=== PATIENT | female | born 1955 | race Caucasian/White ===

== ENCOUNTER → 2017-09-28 | Outpatient (CLI) | payer BC ==
[2017-09-28 15:31] LABS: Basophils % (A) 0 %; Eosinophils # (A) 0.1 k/uL (0-0.7); Eosinophils % (A) 2 %; HCT 35.2 % (34.0-46.0); Lymphocytes # (A) 1.9 k/uL (1.0-4.8); Lymphocytes % (A) 28 %; MCH 34.9 pg (25.0-35.0); MCHC 34.2 g/dL (31.0-37.0); MCV 102.1 fL (80.0-100.0); Macrocytosis Slight; Mean Platelet Volume 8.6; Monocytes # (A) 0.6 k/uL (0-1.0); Monocytes % (A) 9 %; Neutrophils # (A) 4.2 k/uL (1.3-7.7); Neutrophils % (A) 60 %; Platelet Count 126 k/uL (150-450); RBC 3.44 m/uL (3.80-5.40); RDW 14.6 % (11.5-15.5)
[2017-09-28 15:43] LABS: INR 1.1 (<1.2); Prothrombin Time 10.9 sec (9.0-12.0)
[2017-09-28 15:50] LABS: Anion Gap 6 mmol/L; Blood Urea Nitrogen 4 mg/dL (7-17); Carbon Dioxide 28 mmol/L (22-30); Chloride 107 mmol/L (98-107); Glucose 91 mg/dL (74-99); Potassium 4.4 mmol/L (3.5-5.1); Sodium 141 mmol/L (137-145)
== END | disposition home or self-care (01) ==
LOC: LABWHC1 14:55
PROVIDERS: ATTEND Anesthesiology
DX: Z01.812 Encounter for preprocedural laboratory examination (principal); Z79.01 Long term (current) use of anticoagulants
CPT/HCPCS: 36415; 80051; 82565; 82947; 84520; 85025; 85610; 85730

== ENCOUNTER 2017-10-01 10:47 | Inpatient (IN) | payer BC ==
[2017-09-25 16:26] VITALS: BMI 23.1
--- NOTE | 2017-09-30 09:18 | HP ---
HISTORY AND PHYSICAL DATE OF SERVICE: 10/01/2017. HISTORY: Rosa Maria Morse is a 62-year-old patient seen with progressive symptomatic left hip osteoarthritis. We discussed treatment options. She elected to proceed with left total hip arthroplasty. Consent regarding the procedure was obtained. Medical clearance was provided by Dr. Bernard. PAST MEDICAL HISTORY: Hypertension. PAST SURGICAL HISTORY: Noncontributory. MEDICATIONS: Gabapentin, metoprolol. ALLERGIES: CODEINE. SOCIAL HISTORY: Patient denies current tobacco use. PHYSICAL EXAMINATION: On evaluation of the left hip, there is diffuse tenderness about the hip girdle. Very limited range of motion with severe pain. Positive hip impingement sign. Straight leg raise negative. The left lower extremity is approximately 1 cm shorter than the right. Her distal neurovascular exam is intact. RADIOGRAPHS: Radiographs of the left hip reveal severe osteoarthritis. IMPRESSION: 1. Left hip osteoarthritis. 2. Hypertension. PLAN: Direct anterior left total hip arthroplasty. MMODL / IJN: [id number] /
[~2017-10-01 10:47] MED LIST: ACETAMINOPHEN TAB 500 MG TAB PO ONE; LIDOCAINE 1% 20 ML VIAL (10MG/ML) FOR IV START INTRADERMA PRN; MELOXICAM 7.5 MG TAB PO ONE; ONDANSETRON 4 MG/2 ML VIAL IVP ONE; TRANEXAMIC ACID 1,000 MG in SODIUM CHLORIDE 0.9% 50 ML IVPB ONE; VANCOMYCIN 1,000 MG in SODIUM CHLORIDE 0.9% 250 ML IVPB ONE
[2017-10-01] MEDS: LACTATED RINGERS 1,000 ML IV SCH ×2 (12:55→21:25)
[2017-10-01] MEDS ORDERED: ROPIVACAINE 246.25 MG, EPINEPHrine 0.5 MG, KETOROLAC 30 MG, cloNIDine HCL/PF 80 MCG, WA... MISCELLANE ONE ×5 (15:25)
[2017-10-01] MEDS ORDERED: ONDANSETRON 4 MG/2 ML VIAL IVP ONE (15:45)
[2017-10-01] MEDS ORDERED: ePHEDrine SULFATE/0.9% NACL/PF 50 MG/5 ML SYRINGE IV ONE (15:57)
[2017-10-01] MEDS ORDERED: SODIUM CHLORIDE 0.9% 100 ML BAG ONE (15:57)
[2017-10-01] MEDS ORDERED: TRANEXAMIC ACID 1,000 MG/10 ML VIAL ONE (15:57)
[2017-10-01] MEDS ORDERED: fentaNYL (PF) 50 MCG/ML 2 ML AMP ONE ×2 (15:57)
[2017-10-01] MEDS ORDERED: PROPOFOL 10 MG/ML 20 ML VIAL IV ONE (15:57)
[2017-10-01] MEDS ORDERED: ceFAZolin 3,000 MG in SODIUM CHLORIDE 0.9% IRRIGATIO 3,000 ML IRRIGATION ONE (16:33)
[2017-10-01] MEDS ORDERED: hydrOXYzine PAMOATE 25 MG CAP PO PRN (18:07)
[2017-10-01] MEDS ORDERED: HYDROcodone/APAP 7.5-325MG 1 EACH TAB PO PRN (18:07)
[2017-10-01] MEDS ORDERED: NALOXONE 0.4 MG/ML 1 ML VIAL IV PRN (18:07)
[2017-10-01] MEDS ORDERED: ONDANSETRON 4 MG/2 ML VIAL IVP PRN (18:07)
[2017-10-01] MEDS ORDERED: HYDROmorphone 1 MG/ML 1 ML SYRINGE IVP PRN (18:07)
[2017-10-01] MEDS ORDERED: HYDROmorphone 0.5 MG/0.5 ML SYRINGE IVP PRN ×2 (18:07)
--- NOTE | 2017-10-01 18:07 | P.OP ---
Date of Procedure: 10/01/17 Preoperative Diagnosis: Left hip osteoarthritis Postoperative Diagnosis: Left hip osteoarthritis Procedure(s) Performed: Direct anterior left total hip arthroplasty Implants: 1. Depuy Corail KA size 12 standard collar press-fit femoral stem 2. Depuy pinnacle 52 mm press-fit acetabular shell 3. Depuy pinnacle polyethylene acetabular liner neutral 36 mm ID 52 mm OD 4. Depuy metal femoral head 36 mm -2 Anesthesia: local, spinal Surgeon: Konstantin Trivedi Engineer Technician #1: Louis Whatley Estimated Blood Loss (ml): 300 Pathology: other (Femoral head) Condition: stable Disposition: PACU Indications for Procedure: 62-year-old patient seen with symptomatic left hip osteoarthritis. After having treatment options discussed, she elected to proceed with total hip arthroplasty. Operative Findings: see description of procedure Description of Procedure: The patient was taken to the operative suite. Patient underwent a spinal anesthetic by the department of anesthesia. Patient was then transferred to the Veteran table. Patient was given preoperative IV antibiotics and TXA. Both lower extremities were placed in standard leg spars. The hip was then prepped and draped in the normal sterile orthopedic fashion. A standard anterior incision was made beginning 3 cm lateral and 1 cm distal to the ASIS extending 10 cm. Dissection was then carried down through the subcutaneous soft tissues down to the fascia overlying the tensor fascia sharon. An incision was now made through the fascia. Careful dissection was taken down exposing the tensor fascia sharon muscle. A Cobra retractor was now placed along the medial femoral neck and a second one along the lateral femoral neck. The venous circumflex vessels were now identified, cauterized and clipped. We identified the anterior hip capsule. An incision was made through the hip capsule along the lateral border. Tag sutures were then placed along the anterior capsule and lateral capsule. We then performed a capsulotomy. Retractors were now placed around the femoral neck itself. A Cobra retractor was now placed along the anterior acetabulum. Good exposure was now noted of the femoral head/neck complex. Residual labrum was debrided out. We placed the extremity into 3 turns of fine traction. We were then able to introduce a skid in between the femoral head and acetabulum. A placed a awl into the femoral head. We took 2 turns of traction off the extremity. Rotation was now released. The femoral head was then dislocated without difficulty. Additional releasing was performed of the capsule. The head was then reduced. All traction was released. A femoral neck cut was now made with a sagittal saw. It was completed with an osteotome at the lateral neck area. The femoral head was now removed without difficulty. The extremity was now rotated to 45 of external rotation. It was locked in position. Residual labrum was now debrided out. Serial reaming was performed of the acetabulum. Once we reached the appropriate size and a trial was position and fit nicely. The appropriate size was now chosen opened and made available. The wound was irrigated with pulse lavage mechanical irrigation. The acetabular shell was introduced into the acetabulum without difficulty. The C-arm/fluoroscopy was now brought into the operative field. We made sure we had a true AP pelvic view. We now under direct C-arm/fluoroscopy introduced into the acetabular component with appropriate version and inclination. It was well seated and stable. The C-arm was pulled back. An appropriate liner was introduced and clicked into position. It was felt to be stable. At this point retractors were removed. The extremity was now placed into 120 external rotation with no traction. The leg was now dropped to the ground and adducted. Appropriate retractors were now positioned along the proximal femur. We also placed our femoral look into position. Additional capsular releasing was performed to gain access to the proximal femur. We now used a box osteotome. A canal finder was now utilized. Serial broaching was now performed. We noted the canal was very tight distally at this point canal reamers were utilized to open up the canal distally. I was not able to introduce the appropriate size broach and seated it nicely. It had good rotational stability. Appropriate calcar planing was performed. A trial head/neck was placed into position. The hip was now reduced. The C-arm/fluoroscopy was brought back into the operative field. A spot film was obtained of the nonoperative hip. A spot film was obtained of the trial components. Overlays were performed, we noted good overall alignment and positioning for determining leg length. The C-arm/fluoroscopy was pulled back. Retractors were repositioned and the hip was dislocated. The leg was again taken down to the ground and adducted. Appropriate retractors were repositioned as well as the femoral hook. All trial components were removed. The femoral implant was opened along with the femoral head. The wound was irrigated with pulse lavage mechanical irrigation. The deep soft tissues were infiltrated with local analgesic. The femoral implant was introduced with good purchase and fixation noted. The femoral head was introduced with good positioning and fixation noted. This was confirmed under fluoroscopy. Spot films were obtained to document this. Retractors were now removed. The hip was now reduced. There appeared be good positioning of the hip. Bipolar cautery had been utilized intermittently through the procedure for hemostasis. The wound was irrigated copiously with pulse lavage mechanical irrigation. The deep and superficial soft tissues were infiltrated with local analgesic. The fascia was repaired with Vicryl suture. The subcutaneous soft tissues were repaired in layers with Vicryl suture. The skin was approximated with pernio/ Dermabond. Sterile dressings were applied. Patient was then awakened, transferred to a bed and taken to recovery in stable condition. Toi BOGGS assisted with the procedure.
--- NOTE | 2017-10-01 20:29 | FL ---
EXAMINATION TYPE: FL guidance operating room DATE OF EXAM: 10/01/2017 FLUOROSCOPY Fluoroscopy time of 12 seconds was used during anterior left hip replacement. 1 image/s document/s t he procedure.
[2017-10-01] MEDS: traMADol 50 MG TAB PO SCH (21:25)
[2017-10-01] MEDS: SENNOSIDES-DOCUSATE SODIUM 1 EACH TAB PO SCH (21:25)
[2017-10-01] MEDS: HYDROcodone/APAP 7.5-325MG 1 EACH TAB PO PRN (22:33)
[2017-10-01] MEDS: ceFAZolin IN SWFI 2 GM/20 ML SYRINGE IVP SCH (23:41)
[2017-10-02] MEDS: LACTATED RINGERS 1,000 ML IV SCH ×3 (05:58→08:20)
[2017-10-02 07:38] LABS: Basophils % (A) 0 %; Eosinophils # (A) 0.1 k/uL (0-0.7); Eosinophils % (A) 1 %; HCT 27.1 % (34.0-46.0); Lymphocytes # (A) 1.2 k/uL (1.0-4.8); Lymphocytes % (A) 15 %; MCH 35.6 pg (25.0-35.0); MCHC 33.8 g/dL (31.0-37.0); MCV 105.4 fL (80.0-100.0); Macrocytosis Moderate; Mean Platelet Volume 7.9; Monocytes # (A) 0.5 k/uL (0-1.0); Monocytes % (A) 6 %; Neutrophils % (A) 76 %; Platelet Count 117 k/uL (150-450); RBC 2.57 m/uL (3.80-5.40); RDW 15.2 % (11.5-15.5); WBC 7.9 k/uL (3.8-10.6)
[2017-10-02 07:48] LABS: HGB 9.1 gm/dL (11.4-16.0)
[2017-10-02] MEDS: HYDROcodone/APAP 7.5-325MG 1 EACH TAB PO PRN (08:15)
[2017-10-02] MEDS: ceFAZolin IN SWFI 2 GM/20 ML SYRINGE IVP SCH (08:16)
[2017-10-02] MEDS: ENOXAPARIN 40 MG/0.4 ML SYRINGE SQ SCH (08:16)
[2017-10-02] MEDS: FAMOTIDINE 20 MG TAB PO SCH (08:16)
[2017-10-02] MEDS ORDERED: MELOXICAM 7.5 MG TAB PO SCH (09:00)
[2017-10-02] MEDS: traMADol 50 MG TAB PO SCH ×4 (10:02→21:46)
--- NOTE | 2017-10-02 13:31 | P.PN ---
Subjective Progress Note Date: 10/02/17 Principal diagnosis: Status post left total hip arthroplasty Patient seen today resting in her hospital bed, her dressings present at bedside. She does admit to some nausea earlier this morning, this has improved. She's ambulated with therapy. She denies any headaches, lightheadedness, chest pain or shortness of breath. Objective - Vital Signs Vital signs: Vital Signs Temp 98.2 F 10/02/17 07:00 Pulse 90 10/02/17 07:00 Resp 14 10/02/17 07:00 BP 117/75 10/02/17 07:00 Pulse Ox 97 10/02/17 07:00 Intake & Output 10/01/17 10/02/17 10/02/17 18:59 06:59 18:59 Intake Total 1051 640 Output Total 300 Balance 751 640 Weight 61.235 kg Intake: IV 1051 Intake, IV Titration 640 Amount Lactated Ringers 1,000 ml 640 @ 80 mls/hr IV .[id number] [facility] Rx#:[id number] Output: Estimated Blood Loss 300 Other: Voiding Method Toilet # Voids 2 - Exam Left lower extremity: Incision is clean, dry, and intact. The prineo tape is in good condition. There is minimal soft tissue swelling and ecchymosis surrounding the medial and lateral aspects of the incision. Calf is soft, no tenderness with palpation. Plantar flexion, dorsiflexion, EHL, FHL are intact. Sensory exam to light touch throughout the extremity is intact, dorsal pedis pulses 2+. - Labs CBC & Chem 7: 10/02/17 06:38 Labs: Abnormal Lab Results - Last 24 Hours (Table) 10/02/17 Range/Units 06:38 RBC 2.57 L (3.80-5.40) m/uL Hgb 9.1 L D (11.4-16.0) gm/dL Hct 27.1 L (34.0-46.0) % MCV 105.4 H (80.0-100.0) fL MCH 35.6 H (25.0-35.0) pg Plt Count 117 L (150-450) k/uL Assessment and Plan Plan: Assessment: Postoperative day 1 status post left total hip arthroplasty Plan: Pain control, continue use of oral medication GI and DVT prophylaxis, continue Lovenox Encourage incentive spirometer Wound care instructions discussed Medical management Discharge planning: Patient likely will be discharged home tomorrow Time with Patient: Less than 30
--- NOTE | 2017-10-02 15:31 | P.CONS ---
History of Present Illness - History of Present Illness First time taking care of the patient is today 10/02/2017 This is a pleasant 62 years old female with past medical history of hypertension , osteoarthritis, neuropathy of upper or lower extremity, presents for left total hip arthroplasty. Today 10/02/2017 is postop day #1 patient got 1 dose of vancomycin already yesterday Review of Systems CONSTITUTIONAL: No fever, no malaise, no fatigue. HEENT: No recent visual problems or hearing problems. Denied any sore throat. CARDIOVASCULAR: No orthopnea, PND, no palpitations, no syncope. PULMONARY: No shortness of breath, no cough, no hemoptysis. GASTROINTESTINAL: No diarrhea, no nausea, no vomiting, no abdominal pain. Normoactive bowel sounds. NEUROLOGICAL: No headaches, no weakness, no numbness. HEMATOLOGICAL: Denies any bleeding or petechiae. GENITOURINARY: Denies any burning micturition, frequency, or urgency. MUSCULOSKELETAL/RHEUMATOLOGICAL: Denies any joint pain, swelling, or any muscle pain. ENDOCRINE: Denies any polyuria or polydipsia. Past Medical History Past Medical History: Hypertension, Osteoarthritis (OA) Additional Past Medical History / Comment(s): Neuropathy upper and lower extremities, more so in the lower. History of Any Multi-Drug Resistant Organisms: None Reported Past Surgical History: Breast Surgery, Section, Cholecystectomy Additional Past Surgical History / Comment(s): 3 ceserean Sections, BREAST REDUCTION. Past Anesthesia/Blood Transfusion Reactions: No Reported Reaction Past Psychological History: Anxiety Smoking Status: Never smoker Past Alcohol Use History: None Reported Additional Past Alcohol Use History / Comment(s): Former alcoholic, quit 2 yrs ago. Past Drug Use History: None Reported - Past Family History Mother Family Medical History: Cancer Additional Family Medical History / Comment(s): COLON AND UTERINE CANCER, and thyroid Cancer Sister(s) Family Medical History: Cancer Additional Family Medical History / Comment(s): BREAST CANCER Medications and Allergies Home Medications Medication Instructions Recorded Confirmed Type ALPRAZolam [Xanax] 0.25 - 0.5 mg PO BID PRN 09/16/15 10/01/17 History Cholecalciferol [Vitamin D3] 2,000 unit PO DAILY 09/16/15 10/01/17 History Escitalopram [Lexapro] 10 mg PO DAILY PRN 09/25/17 10/01/17 History Metoprolol Succinate [Toprol XL] 25 mg PO BID 09/25/17 10/01/17 History Thiamine [Vitamin B-1] 100 mg PO TID 09/25/17 10/01/17 History Allergies Allergy/AdvReac Type Severity Reaction Status Date / Time Sulfa (Sulfonamide Allergy Nausea & Verified 10/01/17 18:19 Antibiotics) Vomiting codeine AdvReac Nausea & Verified 10/01/17 18:19 Vomiting Physical Exam Vitals: Vital Signs Temp Pulse Resp BP Pulse Ox 10/02/17 14:52 98 F 103 H 16 92/59 97 10/02/17 07:00 98.2 F 90 14 117/75 97 10/02/17 00:40 97.8 F 83 15 94/65 95 10/01/17 21:40 72 96/63 10/01/17 21:25 77 102/66 10/01/17 21:10 70 96/63 10/01/17 20:55 70 101/68 10/01/17 20:40 72 94/62 10/01/17 20:25 68 93/56 10/01/17 20:10 67 94/60 10/01/17 19:55 67 103/66 10/01/17 19:42 97.9 F 70 16 91/62 96 10/01/17 19:15 67 12 106/71 100 10/01/17 19:00 66 16 102/66 99 10/01/17 18:45 71 16 102/66 100 10/01/17 18:30 70 14 102/57 99 10/01/17 18:24 97.6 F 69 18 138/63 99 Intake and Output 10/02/17 10/02/17 10/02/17 06:59 14:59 22:59 Intake Total 640 400 Balance 640 400 Intake: Intake, IV Titration 640 Amount Lactated Ringers 1,000 ml 640 @ 80 mls/hr IV .[id number] [facility] Rx#:[id number] Oral 400 Other: Voiding Method Toilet # Voids 2 2 GENERAL: The patient is alert and oriented x3, not in any acute distress. Well developed, well nourished. HEENT: Pupils are round and equally reacting to light. EOMI. No scleral icterus. No conjunctival pallor. Normocephalic, atraumatic. No pharyngeal erythema. No thyromegaly. CARDIOVASCULAR: S1 and S2 present. No murmurs, rubs, or gallops. PULMONARY: Chest is clear to auscultation, no wheezing or crackles. ABDOMEN: Soft, nontender, nondistended, normoactive bowel sounds. No palpable organomegaly. MUSCULOSKELETAL: No joint swelling or deformity. EXTREMITIES: No cyanosis, clubbing, or pedal edema. -Left hip, dressing is in a Place. Deferred to the primary orthopedic team NEUROLOGICAL: Gross neurological examination did not reveal any focal deficits. SKIN: No rashes. Results CBC & Chem 7: 10/02/17 06:38 Labs: Abnormal Lab Results - Last 24 Hours (Table) 10/02/17 Range/Units 06:38 RBC 2.57 L (3.80-5.40) m/uL Hgb 9.1 L D (11.4-16.0) gm/dL Hct 27.1 L (34.0-46.0) % MCV 105.4 H (80.0-100.0) fL MCH 35.6 H (25.0-35.0) pg Plt Count 117 L (150-450) k/uL Assessment and Plan Assessment: Chronic osteoarthritis Status post left total hip arthroplasty on 10/01/2017 Hypertension Plan: Continue with the same and treatment. Continue with the traumatic treatment. Patient on metoprolol for high blood pressure. Her blood pressure is 92/59 and we will hold blood pressure medication in view of postoperative hypotension, metoprolol is already on hold, continue with GI and DVT prophylaxis as per primary team. Pain management and post operative wound care as per primary team. We recommend to avoid NSAIDs
[2017-10-02] MEDS ORDERED: SODIUM CHLORIDE 0.9% 500 ML IV ONE (15:32)
[2017-10-02] MEDS ORDERED: SODIUM CHLORIDE 0.9% 1,000 ML IV ONE (20:35)
[2017-10-02] MEDS: SENNOSIDES-DOCUSATE SODIUM 1 EACH TAB PO SCH (21:48)
[2017-10-02] MEDS: METOPROLOL SUCCINATE (ER) 25 MG TAB.ER.24H PO SCH (21:49)
[2017-10-03] MEDS: LACTATED RINGERS 1,000 ML IV SCH ×2 (04:28→10:47)
[2017-10-03] MEDS: ENOXAPARIN 40 MG/0.4 ML SYRINGE SQ SCH (09:01)
[2017-10-03] MEDS: METOPROLOL SUCCINATE (ER) 25 MG TAB.ER.24H PO SCH (09:01)
[2017-10-03] MEDS: traMADol 50 MG TAB PO SCH ×2 (09:02→12:34)
[2017-10-03] MEDS: FAMOTIDINE 20 MG TAB PO SCH (09:02)
--- NOTE | 2017-10-03 09:05 | P.PN ---
Subjective Progress Note Date: 10/03/17 Principal diagnosis: Status post left total hip arthroplasty Patient seen today resting in her hospital bed, her dressings present at bedside. She's ambulated with therapy. She denies any headaches, lightheadedness, chest pain or shortness of breath. Objective - Vital Signs Vital signs: Vital Signs Temp 98.9 F 10/02/17 19:18 Pulse 112 H 10/03/17 00:26 Resp 16 10/02/17 19:18 BP 118/81 10/02/17 21:50 Pulse Ox 96 10/02/17 19:18 Intake & Output 10/02/17 10/03/17 10/03/17 18:59 06:59 18:59 Intake Total 400 640 Balance 400 640 Intake: Intake, IV Titration 640 Amount Lactated Ringers 1,000 ml 640 @ 80 mls/hr IV .[id number] [facility] Rx#:[id number] Oral 400 Other: Voiding Method Toilet # Voids 2 1 - Exam Left lower extremity: Incision is clean, dry, and intact. The prineo tape is in good condition. There is minimal soft tissue swelling and ecchymosis surrounding the medial and lateral aspects of the incision. Calf is soft, no tenderness with palpation. Plantar flexion, dorsiflexion, EHL, FHL are intact. Sensory exam to light touch throughout the extremity is intact, dorsal pedis pulses 2+. - Labs CBC & Chem 7: 10/02/17 06:38 Assessment and Plan Plan: Assessment: Postoperative day 2 status post left total hip arthroplasty Plan: Pain control, continue use of oral medication GI and DVT prophylaxis, discharged on aspirin 325 mg twice a day Encourage incentive spirometer Wound care instructions discussed Medical management Discharge planning: Discharged home today Time with Patient: Less than 30
--- NOTE | 2017-10-03 09:07 | P.DS ---
Providers Date of admission: 10/01/17 10:47 Expected date of discharge: 10/03/17 Attending physician: Konstantin Trivedi Primary care physician: Jarvis Bernard Hospital Course: Date of admission: 10/01/2017 Date of discharge: 10/04/2017 Admission diagnosis: Status post left total hip arthroplasty Discharge diagnosis: Same Attending physician: Dr. Trivedi Surgical procedures: Left total hip arthroplasty Brief history: Patient is a 62-year-old female with a history of with progressive primary left hip osteoarthritis. At this point patient has failed conservative treatment measures and has opted to proceed with a elective left total hip arthroplasty. Hospital course: Details of patient's surgery can be found in operative report. Patient tolerated the procedure well and was subsequently transported to orthopedic floor. Patient's orthopeidc and medical care was provided daily. Patient had daily laboratory tests performed for evaluation of overall blood counts. Patient had daily physical therapy to include strengthening range of motion as well as education with walker ambulation. Patient was treated with Lovenox for their postoperative DVT prophylaxis during their inpatient stay. Patient was noted to have a relatively uneventful postoperative course. Patient reported satisfactory pain control with oral pain medications by postoperative day 0. Patient showed satisfactory progress with physical therapy. Patient moved steadily through the program and had no difficulty meeting the goals by postoperative day 2. Given patient's otherwise satisfactory course and having met physical therapy goals, plan is to discharge patient home on postoperative day 2. Discharge condition/disposition: Patient will be discharged home in stable condition. Discharge medications: Instructions are given on resumption of patient's normal daily medications per primary care recommendation, in addition patient will be prescribed [place] 7.5 mg/325 mg, tramadol 50 mg, Colace 100 mg, aspirin 325 mg. Discharge instructions: 1. Wound care and infection precautions, keep incision dry and covered while showering, no lotions, creams, moisturizers. No soaking, tubs, pools, hottubs. Do not scrub over the incision. 2. Weight-bear as tolerated with walker / cane until follow-up. 3. Ice and elevate when necessary. Do not exceed 20 minutes per hour with ice pack. 4. Utilize compression sleeve until seen at first follow up appointment. 5. Visiting nursing care. 6. Home physical therapy. 7. Pain meds and anticoagulants per prescription. 8. Pain medication has potential to cause constipation. Increase oral fluid and fiber intake. Contact primary care provider if you have not had a bowel movement within 48 hours after discharge 9. No anti-inflammatory medication until discussed at first post operative visit, this including Motrin, Aleve, Mobic, Diclofenac. 10. Follow up in office at 2 weeks postop with Toi Whatley PA-C 11. Follow up with your primary care doctor 7-10 days after discharge. 12. Contact [facility] with any questions, . Procedures: Left total hip arthroplasty Patient Condition at Discharge: Good Plan - Discharge Summary Discharge Rx Participant: Yes New Discharge Prescriptions: New Aspirin 325 mg PO BID #60 tab Docusate [Colace] 100 mg PO DAILY #30 capsule HYDROcodone/APAP 7.5-325MG [[place] 7.5] 1 - 2 each PO Q6HR PRN #56 tab PRN Reason: Pain traMADol HCl [Ultram] 50 mg PO Q6H PRN #28 tab PRN Reason: Pain No Action ALPRAZolam [Xanax] 0.25 - 0.5 mg PO BID PRN PRN Reason: Anxiety Cholecalciferol [Vitamin D3] 2,000 unit PO DAILY Thiamine [Vitamin B-1] 100 mg PO TID Escitalopram [Lexapro] 10 mg PO DAILY PRN PRN Reason: Anxiety Metoprolol Succinate [Toprol XL] 25 mg PO BID Discharge Medication List ALPRAZolam [Xanax] 0.25 - 0.5 mg PO BID PRN 09/16/15 [History] Cholecalciferol [Vitamin D3] 2,000 unit PO DAILY 09/16/15 [History] Escitalopram [Lexapro] 10 mg PO DAILY PRN 09/25/17 [History] Metoprolol Succinate [Toprol XL] 25 mg PO BID 09/25/17 [History] Thiamine [Vitamin B-1] 100 mg PO TID 09/25/17 [History] Aspirin 325 mg PO BID #60 tab 10/03/17 [Rx] Docusate [Colace] 100 mg PO DAILY #30 capsule 10/03/17 [Rx] HYDROcodone/APAP 7.5-325MG [[place] 7.5] 1 - 2 each PO Q6HR PRN #56 tab 10/03/17 [ Rx] traMADol HCl [Ultram] 50 mg PO Q6H PRN #28 tab 10/03/17 [Rx] Follow up Appointment(s)/Referral(s): Jarvis Bernard MD [Primary Care Provider] - 10/10/17 10:15 am Louis Whatley PAC [PHYSICIAN SHIRRING MACHINE OPERATOR] - 10/17/17 2:00 pm Patient Instructions/Handouts: Anterior Hip Replacement (DC) Activity/Diet/Wound Care/Special Instructions: Orthopedic Discharge Instructions: 1. Wound care and infection precautions, keep incision dry and covered while showering, no lotions, creams, moisturizers. No soaking, pools, hot tubs. Do not scrub over incision. 2. Weight-bear as tolerated with walker / cane until follow-up. 3. Ice and elevate when necessary. Do not exceed 20 minutes per hour with ice pack. 4. Utilize compression sleeve until seen at first follow up appointment. 5. Visiting nursing care. 6. Home physical therapy. 7. Pain meds and anticoagulants per prescription. 8. Pain medication has potential to cause constipation. Increase oral fluid and fiber intake. Contact primary care provider if you have not had a bowel movement within 48 hours after discharge. 9. No anti-inflammatory medication until discussed at first post operative visit, this including Motrin, Aleve, Mobic, Diclofenac. 10. Follow up in office at 2 weeks postop with Toi Whatley PA-C 11. Follow up with your primary care doctor 7-10 days after discharge. 12. Contact [facility] with any questions, . Discharge Disposition: HOME WITH HOME HEALTH SERVICES
[2017-10-03 10:02] VITALS: BP 104/67; PULSE 96; RESP 14; TEMP 99.6
--- NOTE | 2017-10-03 14:38 | P.PN ---
Subjective This is a pleasant 62 years old female with past medical history of hypertension , osteoarthritis, neuropathy of upper or lower extremity, presents for left total hip arthroplasty. Today 10/02/2017 is postop day #1 patient got 1 dose of vancomycin already yesterday Subjective Today patient feels better, no new complaints. No chest pain or dyspnea. Dizziness. No change in urine or bowel habits. No fever. She has minimal pain of the surgery site. And the wound looks closed with no surrounding signs symptoms of inflammation. Patient on metoprolol for hypertension which was restarted, SBP is running between 90s and 110s (which is patient's baseline as she was telling me for a long time ago). Patient is going to be discharged today by the orthopedic team Objective - Vital Signs Vital signs: Vital Signs Temp 99.6 F 10/03/17 07:00 Pulse 96 10/03/17 07:15 Resp 14 10/03/17 07:00 BP 104/67 10/03/17 07:00 Pulse Ox 95 10/03/17 07:00 Intake & Output 10/02/17 10/03/17 10/03/17 18:59 06:59 18:59 Intake Total 400 640 Balance 400 640 Intake: Intake, IV Titration 640 Amount Lactated Ringers 1,000 ml 640 @ 80 mls/hr IV .[id number] [facility] Rx#:[id number] Oral 400 Other: Voiding Method Toilet # Voids 2 1 - Exam GENERAL: The patient is alert and oriented x3, not in any acute distress. Well developed, well nourished. HEENT: Pupils are round and equally reacting to light. EOMI. No scleral icterus. No conjunctival pallor. Normocephalic, atraumatic. No pharyngeal erythema. No thyromegaly. CARDIOVASCULAR: S1 and S2 present. No murmurs, rubs, or gallops. PULMONARY: Chest is clear to auscultation, no wheezing or crackles. ABDOMEN: Soft, nontender, nondistended, normoactive bowel sounds. No palpable organomegaly. MUSCULOSKELETAL: No joint swelling or deformity. EXTREMITIES: No cyanosis, clubbing, or pedal edema. -Left hip, dressing is in a Place, wound ages looks closed, healing, with no signs symptoms of inflammation in the surrounding area. No discharge. Rest of exam Deferred to the primary orthopedic team NEUROLOGICAL: Gross neurological examination did not reveal any focal deficits. - Labs CBC & Chem 7: 10/02/17 06:38 Assessment and Plan Assessment: Chronic osteoarthritis Status post left total hip arthroplasty on 10/01/2017 Hypertension Plan: Continue with the same and treatment. Continue with the traumatic treatment. Patient on metoprolol for high blood pressure. Her metoprolol has already been started. Her blood pressure is a stable and at baseline as per patient, continue with GI prophylaxis. DVT prophylaxis as per primary team. Pain management and post operative wound care as per primary team. We recommend to avoid NSAIDs. Patient was instructed to follow up with PCP in one week. Patient states she is going back today and going to call her primary doctor for appointment in 1 week. From a medical perspective patient is a stable for discharge however she needs follow-up as an outpatient. We asked Patient and she doesn't need any more prescription
[2017-10-03] MEDS: HYDROcodone/APAP 7.5-325MG 1 EACH TAB PO PRN (14:43)
== END 2017-10-03 15:14 | disposition home health service (06) | DRG 470 ==
LOC: 2ORMAIN 10:47 → 3SUR 18:06
PROVIDERS: ADMIT Orthopaedic Surgery; ATTEND Orthopaedic Surgery
PROC: 0SRB02A Replacement of Left Hip Joint with Metal on Polyethylene Synthetic Substitute, Uncemented, Open Approach (ICD-10-PCS; principal; 2017-10-01 15:45)
DX: M16.12 Unilateral primary osteoarthritis, left hip (principal); I10 Essential (primary) hypertension; Z80.3 Family history of malignant neoplasm of breast; Z80.49 Family history of malignant neoplasm of other genital organs; Z80.8 Family history of malignant neoplasm of other organs or systems; Z79.899 Other long term (current) drug therapy; Z88.5 Allergy status to narcotic agent; G62.9 Polyneuropathy, unspecified; Z90.49 Acquired absence of other specified parts of digestive tract; Z88.2 Allergy status to sulfonamides
CPT/HCPCS: 85025; 86850; 86900; 86901; 88300

== ENCOUNTER 2022-01-13 16:07 | Inpatient (IN) | payer BC, MEDICARE ==
--- NOTE | 2022-01-13 17:18 | XR ---
EXAMINATION TYPE: XR Hip LT and AP Pelvis DATE OF EXAM: 01/13/2022 COMPARISON: NONE HISTORY: Pain TECHNIQUE: 3 views FINDINGS: The pelvic ring is intact. There is left hip prosthesis that appears in good position. Prox imal right femur and hip joint appear intact. There is probably a nondisplaced fracture of the greate r trochanter of the left femur. IMPRESSION: Fracture of the greater trochanter of the left femur maurilio cent to the prosthesis. The age of this fracture is not clear. Recommend comparison with an old exam.
--- NOTE | 2022-01-13 17:19 | XR ---
EXAMINATION TYPE: XR femur LT DATE OF EXAM: 01/13/2022 COMPARISON: NONE HISTORY: Pain TECHNIQUE: 4 view FINDINGS: There is nondisplaced fracture of the greater trochanter of the femur adjacent to the prost hesis. There is left hip prosthesis in good position. The knee joint appears intact. No evidence of k nee joint fracture. IMPRESSION: Nondisplaced fracture greater trochanter of the femur.
--- NOTE | 2022-01-13 17:21 | CT ---
EXAMINATION TYPE: CT brain rosibel wo con DATE OF EXAM: 01/13/2022 COMPARISON: CT brain 03/02/2014 HISTORY: fall CT DLP: 1255.6 mGycm Automated exposure control for dose reduction was used. Images obtained of the brain and cervical spine with no contrast. There is cerebral cortical atrophy. There is no mass effect or midline shift. No sign of intracranial hemorrhage. Calvarium is intact. There is normal aeration of the mastoid sinuses. Skull base is inta ct. The cervical vertebra have normal alignment. Posterior elements are intact. There is degenerative dis c space narrowing in the mid and lower cervical spine with spurring of the endplates. Posterior eleme nts are intact. There is mild cervical hypertrophic facet arthropathy. Prevertebral soft tissues are intact. Occipital bone is intact. IMPRESSION: Cerebral atrophy. No acute intracranial abnormality. No significant change compared to old exam. Cervical multilevel spondylotic changes. No fracture seen.
[2022-01-13] MEDS ORDERED: MORPHINE SULFATE 4 MG/ML SYRINGE IVP STA (17:52)
[2022-01-13] MEDS ORDERED: ONDANSETRON 4 MG/2 ML VIAL IVP STA (17:53)
[2022-01-13] MEDS ORDERED: NALOXONE 0.4 MG/ML 1 ML VIAL IV PRN (19:21)
[2022-01-13] MEDS ORDERED: MORPHINE SULFATE 4 MG/ML SYRINGE IV PRN (19:21)
--- NOTE | 2022-01-13 19:23 | ED ---
General Adult HPI - General Chief complaint: Fall Stated complaint: fall - lt hip pain Time Seen by Provider: 01/13/22 16:16 Source: patient, EMS, RN notes reviewed, old records reviewed Mode of arrival: EMS Limitations: no limitations - History of Present Illness Initial comments: Patient is a 66-year-old female with past medical history remarkable for prior left hip replacement who presents emergency Department complaining of left hip pain following a fall yesterday. Patient states she tripped and fell onto the left side onto carpet. He was somewhat hematuria yesterday but woke up today and was not endorses right. Presents today for further evaluation. Denies any numbness of the left lower extremity. Does endorse pain over the left hip. Pain with movement of the left hip. No other injuries. No back pain. No abdominal pain. Did not hit her head. On blood thinners. No loss conscious. Presents for further evaluation at this time. - Related Data Home Medications Medication Instructions Recorded Confirmed Cholecalciferol [Vitamin D3 (25 50 mcg PO DAILY 01/13/22 01/13/22 Mcg = 1000 Iu)] Escitalopram [Lexapro] 5 mg PO W/LUNCH 01/13/22 01/13/22 Gabapentin [Neurontin] 300 mg PO 5XD 01/13/22 01/13/22 Metoprolol Tartrate [Lopressor] 25 mg PO BID 01/13/22 01/13/22 Omeprazole [PriLOSEC] 20 mg PO DAILY 01/13/22 01/13/22 diphenhydrAMINE [Benadryl] 25 mg PO HS 01/13/22 01/13/22 Allergies Allergy/AdvReac Type Severity Reaction Status Date / Time Sulfa (Sulfonamide Allergy Nausea & Verified 01/13/22 18:46 Antibiotics) Vomiting codeine AdvReac Nausea & Verified 01/13/22 18:46 Vomiting Review of Systems ROS Statement: Those systems with pertinent positive or pertinent negative responses have been documented in the HPI. Review of Systems: CONST: Denies fever EYES: Denies blurry vision ENT: Denies nasal congestion C/V: Denies Chest pain RESP: Denies shortness of breath GI: Denies abdominal pain : Denies dysuria SKIN: Denies rash. MSK: Endorses left hip pain NEURO: Denies headache ROS Other: All systems not noted in ROS Statement are negative. Past Medical History Past Medical History: Hypertension, Osteoarthritis (OA) Additional Past Medical History / Comment(s): Neuropathy upper and lower extremities, more so in the lower. History of Any Multi-Drug Resistant Organisms: None Reported Past Surgical History: Breast Surgery, Section, Cholecystectomy Additional Past Surgical History / Comment(s): 3 ceserean Sections, BREAST REDUCTION. Past Anesthesia/Blood Transfusion Reactions: No Reported Reaction Past Psychological History: Anxiety Smoking Status: Never smoker Past Alcohol Use History: None Reported Past Drug Use History: None Reported - Past Family History Mother Family Medical History: Cancer Additional Family Medical History / Comment(s): COLON AND UTERINE CANCER, and thyroid Cancer Sister(s) Family Medical History: Cancer Additional Family Medical History / Comment(s): BREAST CANCER General Exam - General Exam Comments Initial Comments: General: Appears in no acute distress. HEAD: Normal with no signs of head trauma. EYES: PERRLA, EOMI, conjunctiva normal, no discharge. ENT: Hearing grossly intact, normal oropharynx. RESPIRATORY: Clear breath sounds bilaterally. No wheezes, rales, or rhonchi. C/V: Regular rate and rhythm. S1 and S2 auscultated, no edema, peripheral pulses 2+ and intact throughout ABD: Abd is soft, nontender, nondistended EXT: Reduced range of motion of the left hip secondary to pain. No obvious deformity. Point tenderness over the left proximal femur. Mild midline cervical spine tenderness to palpation. No midline thoracic or lumbar spine tenderness to palpation. Pelvis is stable. SKIN: No rashes or lesions observed on exposed skin. NEURO: Alert and oriented 4. Neurovascular intact throughout. Limitations: no limitations Course Vital Signs 01/13/22 01/13/22 16:11 18:04 Temperature 99.1 F Pulse Rate 74 72 Respiratory 16 18 Rate Blood Pressure 103/71 128/79 O2 Sat by Pulse 98 100 Oximetry Medical Decision Making - Medical Decision Making Based on the patient's presentation and physical exam, I'm concerned for left hip injury after fall. Cannot rule out C-spine injuries she does have midline cervical tenderness. Recommended CT C-spine as well as left hip x-rays. She was in agreement with this plan. Refuses analgesic medications initially. Vital signs are within normal limits. Imaging revealed no acute intracranial process. No cervical spine injury. Pelvic and left hip x-ray revealed a fracture of the greater trochanter on the left side. Nondisplaced. I updated the patient at this time. She is requesting pain medications at this time. We will obtain basic labs that she will likely be admitted. She was in agreement this plan. I did speak with Lola , as the patient does have a known history with Dr. Trivedi. She spoke with her attending Dr. Johnson was in agreement with admission. They may manage non-op. Nothing by mouth is not required at this time. I spoke with the patient and she was in agreement this plan. She will be admitted. Lab studies were remarkable for mild hypoglycemia which was corrected with food. She has has a mild hypokalemia which was replenished. - Lab Data Result diagrams: 01/13/22 19:21 01/13/22 19:21 Disposition Clinical Impression: Greater trochanter fracture, Hypokalemia Disposition: ADMITTED IP TO THIS [facility] Condition: Stable Time of Disposition: 18:30
[2022-01-13 19:26] LABS: Basophils % (A) 1 %; Eosinophils # (A) 0.1 k/uL (0-0.7); Eosinophils % (A) 1 %; HCT 29.5 % (34.0-46.0); HGB 10.6 gm/dL (11.4-16.0); Lymphocytes # (A) 1.8 k/uL (1.0-4.8); Lymphocytes % (A) 43 %; MCH 37.5 pg (25.0-35.0); MCV 103.9 fL (80.0-100.0); Macrocytosis Slight; Mean Platelet Volume 9.8; Monocytes # (A) 0.3 k/uL (0-1.0); Monocytes % (A) 7 %; Neutrophils % (A) 46 %; RBC 2.84 m/uL (3.80-5.40); RDW 13.2 % (11.5-15.5); WBC 4.3 k/uL (3.8-10.6)
[2022-01-13 19:38] LABS: Calcium 8.2 mg/dL (8.4-10.2); Potassium 2.9 mmol/L (3.5-5.1)
[2022-01-13] MEDS ORDERED: POTASSIUM CHLORIDE ER 20 MEQ TAB.ER PO STA (20:09)
[2022-01-13 20:22] LABS: Platelet Count 78 k/uL (150-450)
[2022-01-13 22:24] LABS: INR 1.3 (<1.2); Partial Thromboplastin Time 25.2 sec (22.0-30.0); Prothrombin Time 13.9 sec (9.0-12.0)
[2022-01-13] MEDS: HEPARIN SODIUM,PORCINE/PF 5,000 UNIT/0.5 ML SYRINGE SQ SCH (23:02)
[2022-01-14] MEDS: GABAPENTIN 300 MG CAP PO SCH ×5 (00:07→20:20)
[2022-01-14] MEDS ORDERED: LORazepam 1 MG/0.5 ML VIAL IV PRN (01:56)
[2022-01-14] MEDS ORDERED: LORazepam 1 MG TAB PO PRN ×2 (01:56)
[2022-01-14] MEDS ORDERED: LORazepam 0.5 MG TAB PO PRN (01:56)
[2022-01-14] MEDS: LORazepam 1 MG TAB PO PRN (02:04)
[2022-01-14 08:35] LABS: African American GFR (CKD) 75 (>60 ml/min/1.73 sqM); Anion Gap 5 mmol/L; Blood Urea Nitrogen 4 mg/dL (7-17); Carbon Dioxide 30 mmol/L (22-30); Chloride 102 mmol/L (98-107); Glucose 90 mg/dL (74-99); Non-African American GFR(CKD) 65 (>60 ml/min/1.73 sqM); Potassium 3.9 mmol/L (3.5-5.1); Sodium 137 mmol/L (137-145)
[2022-01-14 08:46] LABS: HCT 29.8 % (34.0-46.0); HGB 10.3 gm/dL (11.4-16.0); MCH 36.3 pg (25.0-35.0); MCHC 34.4 g/dL (31.0-37.0); MCV 105.5 fL (80.0-100.0); Macrocytosis Moderate; Mean Platelet Volume 9.9; RBC 2.82 m/uL (3.80-5.40); RDW 13.6 % (11.5-15.5); WBC 3.6 k/uL (3.8-10.6)
[2022-01-14] MEDS: HEPARIN SODIUM,PORCINE/PF 5,000 UNIT/0.5 ML SYRINGE SQ SCH ×2 (08:56→15:44)
[2022-01-14] MEDS: METOPROLOL TARTRATE 25 MG TAB PO SCH ×2 (08:56→20:20)
[2022-01-14 09:06] LABS: Platelet Count 66 k/uL (150-450)
--- NOTE | 2022-01-14 09:18 | P.HPOR ---
History of Present Illness H&P Date: 01/14/22 Chief Complaint: FFS with injury, Left hip pain History of Presenting Illness Patient is a pleasant 66-year-old female who presented to the ER after a fall from standing and has complaint of left hip pain and inability to ambulate. On assessment this morning patient is confused, but will follow direction. She is unable to answer questions appropriately at this time. Current medications will be reviewed and adjusted. Review of ER notes states that patient had tripped and fell onto her left side onto carpet. She had denied hitting her head or having loss of consciousness. Patient is known to our office with Dr. Trivedi. Patient had total left hip arthroplasty performed on 10/01/21. Review of Systems Pertinent positives and negatives as discussed in HPI, a complete review of systems was performed and all other systems are negative. Physical Examination General: The patient is awake and alert, in no acute distress Skin: Skin is warm and dry with no obvious rashes or lesions. Hairy patches absent, no dorsal skin dimples, no cafe au lait spots, and no surgical incisions. Eye: Pupils are equal, round and reactive to light, extra-ocular movements are intact; there is normal conjunctiva bilaterally. Neck: The neck is supple, there is no tenderness and ROM intact. Cardiovascular: There is a regular rate and rhythm. No murmur, rub or gallop is appreciated. Respiratory: Lungs are clear to auscultation, respirations are non-labored, breath sounds are equal. Gastrointestinal: Soft, non-distended, non-tender abdomen. Back: There is no tenderness to palpation in the midline, paralumbar, parathoracic or buttocks region. There is no obvious deformity. Musculoskeletal: ROM to Left Hip limited secondary to pain and stiffness from injury. TTP over left hip region. Calf is soft, no tenderness with palpation. Plantar flexion, dorsiflexion, EHL, FHL are intact. Sensory exam to light touch throughout the extremity is intact, dorsal pedis pulses 2+. Neurological: CN 2-12 intact. There are no obvious motor or sensory deficits. Movement and coordination equal and intact. Sensory exam to light touch intact C5-T1 and intact from L2-S1. Reflexes 2/4 in bilateral upper and lower extremities. Negative Hoffmans, babinski, and clonus signs. Psychiatric: Cooperative, appropriate mood & affect, normal judgment. Assessment and Plan Imaging of the left hip, left femur, and pelvis were performed and the findings present a nondisplaced fracture of the greater trochanter, and that the left hip prosthesis appears in good position. FFS with injury Left Greater trochanter fracture Left hip pain -Non-weightbearing of the left lower extremity -Pain control, continue use of oral medication -GI and DVT prophylaxis: senna, heparin -Encourage incentive spirometer -Medical management I reviewed and discussed this case with my attending Dr. Johnson, whom has reviewed this chart and films and is in agreement with assessment and plan of care as outlined above. I have personally seen and examined the patient, performed the documentation and the assessment and plan as written. Number of minutes spent on the visit: 20m. Past Medical History Past Medical History: Hypertension, Liver Disease, Osteoarthritis (OA), Syncope Additional Past Medical History / Comment(s): Neuropathy upper and lower extremities, more so in the lower. History of Any Multi-Drug Resistant Organisms: None Reported Past Surgical History: Breast Surgery, Section, Cholecystectomy Additional Past Surgical History / Comment(s): 3 ceserean Sections, BREAST REDUCTION. Past Anesthesia/Blood Transfusion Reactions: No Reported Reaction Past Psychological History: Anxiety Smoking Status: Never smoker Past Alcohol Use History: Abuse, Daily Additional Past Alcohol Use History / Comment(s): Two drinks daily- Burbon and water Past Drug Use History: None Reported - Past Family History Mother Family Medical History: Cancer Additional Family Medical History / Comment(s): COLON AND UTERINE CANCER, and thyroid Cancer Sister(s) Family Medical History: Cancer Additional Family Medical History / Comment(s): BREAST CANCER Medications and Allergies Home Medications Medication Instructions Recorded Confirmed Type Cholecalciferol [Vitamin D3 (25 50 mcg PO DAILY 01/13/22 01/13/22 History Mcg = 1000 Iu)] Escitalopram [Lexapro] 5 mg PO W/LUNCH 01/13/22 01/13/22 History Gabapentin [Neurontin] 300 mg PO 5XD 01/13/22 01/13/22 History Metoprolol Tartrate [Lopressor] 25 mg PO BID 01/13/22 01/13/22 History Omeprazole [PriLOSEC] 20 mg PO DAILY 01/13/22 01/13/22 History diphenhydrAMINE [Benadryl] 25 mg PO HS 01/13/22 01/13/22 History Allergies Allergy/AdvReac Type Severity Reaction Status Date / Time Sulfa (Sulfonamide Allergy Nausea & Verified 01/13/22 18:46 Antibiotics) Vomiting codeine AdvReac Nausea & Verified 01/13/22 18:46 Vomiting Results - Labs Labs: Abnormal Lab Results - Last 24 Hours (Table) 01/13/22 01/13/22 01/13/22 Range/Units 19:21 19:21 21:39 RBC 2.84 L (3.80-5.40) m/uL Hgb 10.6 L (11.4-16.0) gm/dL Hct 29.5 L (34.0-46.0) % MCV 103.9 H (80.0-100.0) fL MCH 37.5 H (25.0-35.0) pg Plt Count 78 L (150-450) k/uL PT 13.9 H (9.0-12.0) sec INR 1.3 H (<1.2) Potassium 2.9 L (3.5-5.1) mmol/L BUN 3 L (7-17) mg/dL Glucose 62 L (74-99) mg/dL Calcium 8.2 L (8.4-10.2) mg/dL 01/14/22 Range/Units 07:30 RBC (3.80-5.40) m/uL Hgb (11.4-16.0) gm/dL Hct (34.0-46.0) % MCV (80.0-100.0) fL MCH (25.0-35.0) pg Plt Count (150-450) k/uL PT (9.0-12.0) sec INR (<1.2) Potassium (3.5-5.1) mmol/L BUN 4 L (7-17) mg/dL Glucose (74-99) mg/dL Calcium 8.0 L (8.4-10.2) mg/dL H & H 01/13/22 Range/Units 19:21 Hgb 10.6 L (11.4-16.0) gm/dL Hct 29.5 L (34.0-46.0) % Coagulation 01/13/22 Range/Units 21:39 INR 1.3 H (<1.2) Result Diagrams: 01/14/22 07:30 01/14/22 07:30
[2022-01-14] MEDS ORDERED: ACETAMINOPHEN TAB 325 MG TAB PO PRN (09:20)
[2022-01-14] MEDS ORDERED: HYDROmorphone 0.5 MG/0.5 ML SYRINGE IVP PRN (09:21)
[2022-01-14] MEDS ORDERED: SENNOSIDES 8.6 MG TAB PO PRN (09:22)
[2022-01-14 11:09] LABS: Lymphocytes # (M) 1.62 k/uL (1.0-4.8); Monocytes # (M) 0.43 k/uL (0-1.0); Neutrophils # (M) 1.55 k/uL (1.3-7.7); Neutrophils % (M) 43 %; Nucleated Red Blood Cells 0 /100 WBC (0-0); Total Cells Counted 100
[2022-01-14] MEDS: ESCITALOPRAM 5 MG TAB PO SCH (12:00)
[2022-01-14] MEDS: HYDROmorphone 0.5 MG/0.5 ML SYRINGE IVP PRN (14:27)
--- NOTE | 2022-01-14 14:36 | P.HPIM ---
History of Present Illness H&P Date: 01/14/22 Chief Complaint: fall Patient is a 66-year-old female with past medical history of hypertension, osteoarthritis, neuropathy, recent left total hip arthroplasty presenting after a mechanical fall. CT head shows cerebral atrophy, no acute intracranial abnormality. X-rays demonstrated nondisplaced fracture of greater trochanter of the left femur. Patient admitted to the orthopedic service. Currently recommending nonweightbearing on left lower extremity, pain control. Patient received 2 mg of Ativan per alcohol withdrawal protocol, and currently somnolent and not able to provide accurate history. Patient however denies any chest pain, shortness of breath, abdominal pain, urinary or bowel complaints. She does claim that she drinks 6 ounces of bourbon or more daily. She has had prior history of alcohol withdrawal. She denies any smoking or illicit drug use. Patient seen and examined at bedside. Pertinent positives and negatives as discussed in HPI, a complete review of systems was performed and all other systems are negative. Vital signs reviewed General: nontoxic, no distress, appears at stated age Derm: warm, dry Head: atraumatic, normocephalic, symmetric Eyes: EOMI, no lid lag, anicteric sclera, pupils equal round reactive to light ENT: Nose and ears atraumatic, no pharyngeal erythema Neck: No thyromegaly, supple Mouth: no lip lesion, mucus membranes moist Cardiovascular: S1S2 reg, no murmur, no edema Lungs: clear to auscultation bilateral, no rhonchi, no rales, no wheeze, no accessory muscle use Abdominal: soft, nontender to palpation, no guarding, no appreciable organomegaly, normal bowel sounds Ext: no gross muscle atrophy, muscle strength muscle strength 5 out of 5 in all 4 extremities, no contractures, left hip pain Neuro: CN II-XII grossly intact, light touch intact all 4 extremities Psych: Alert, oriented, appropriate affect Assessment/Plan: Mechanical fall Left greater trochanter fracture Recent left hip arthroplasty -Pain control and DVT prophylaxis orthopedics -Conservative management Alcohol dependence Concern for alcohol withdrawal - on CIWA protocol, when necessary -Thiamine, folic acid Macrocytic anemia -Likely secondary to alcohol use -B12, folic acid levels pending Hypertension Neuropathy Depression -Medication reviewed and reconciled Thank you for allowing us to participate in the care of this pleasant patient. Do not hesitate to contact us with questions. Someone can be reached from the [facility] hospitalist group all hours of the day at [phone] or via [employer]. Past Medical History Past Medical History: Hypertension, Liver Disease, Osteoarthritis (OA), Syncope Additional Past Medical History / Comment(s): Neuropathy upper and lower extremities, more so in the lower. History of Any Multi-Drug Resistant Organisms: None Reported Past Surgical History: Breast Surgery, Section, Cholecystectomy Additional Past Surgical History / Comment(s): 3 ceserean Sections, BREAST REDUCTION. Past Anesthesia/Blood Transfusion Reactions: No Reported Reaction Past Psychological History: Anxiety Smoking Status: Never smoker Past Alcohol Use History: Abuse, Daily Additional Past Alcohol Use History / Comment(s): Two drinks daily- Burbon and water Past Drug Use History: None Reported - Past Family History Mother Family Medical History: Cancer Additional Family Medical History / Comment(s): COLON AND UTERINE CANCER, and thyroid Cancer Sister(s) Family Medical History: Cancer Additional Family Medical History / Comment(s): BREAST CANCER Medications and Allergies Home Medications Medication Instructions Recorded Confirmed Type Cholecalciferol [Vitamin D3 (25 50 mcg PO DAILY 01/13/22 01/13/22 History Mcg = 1000 Iu)] Escitalopram [Lexapro] 5 mg PO W/LUNCH 01/13/22 01/13/22 History Gabapentin [Neurontin] 300 mg PO 5XD 01/13/22 01/13/22 History Metoprolol Tartrate [Lopressor] 25 mg PO BID 01/13/22 01/13/22 History Omeprazole [PriLOSEC] 20 mg PO DAILY 01/13/22 01/13/22 History diphenhydrAMINE [Benadryl] 25 mg PO HS 01/13/22 01/13/22 History Allergies Allergy/AdvReac Type Severity Reaction Status Date / Time Sulfa (Sulfonamide Allergy Nausea & Verified 01/13/22 18:46 Antibiotics) Vomiting codeine AdvReac Nausea & Verified 01/13/22 18:46 Vomiting Physical Exam Vitals: Vital Signs Temp Pulse Pulse Resp BP BP Pulse Ox 01/14/22 08:00 97.7 F 82 16 109/74 97 01/14/22 01:55 98.9 F 78 18 97/65 94 L 01/13/22 21:55 99.1 F 83 20 101/68 96 01/13/22 18:04 72 18 128/79 100 01/13/22 16:11 99.1 F 74 16 103/71 98 Intake and Output 01/13/22 01/14/22 01/14/22 22:59 06:59 14:59 Output Total 500 Balance -500 Output: Urine 500 Other: Voiding Method External Catheter External Catheter Weight 56.699 kg Results CBC & Chem 7: 01/14/22 07:30 01/14/22 07:30 Labs: Abnormal Lab Results - Last 24 Hours (Table) 01/13/22 01/13/22 01/13/22 Range/Units 19:21 19:21 21:39 WBC (3.8-10.6) k/uL RBC 2.84 L (3.80-5.40) m/uL Hgb 10.6 L (11.4-16.0) gm/dL Hct 29.5 L (34.0-46.0) % MCV 103.9 H (80.0-100.0) fL MCH 37.5 H (25.0-35.0) pg Plt Count 78 L (150-450) k/uL PT 13.9 H (9.0-12.0) sec INR 1.3 H (<1.2) Potassium 2.9 L (3.5-5.1) mmol/L BUN 3 L (7-17) mg/dL Glucose 62 L (74-99) mg/dL Calcium 8.2 L (8.4-10.2) mg/dL 01/14/22 01/14/22 Range/Units 07:30 07:30 WBC 3.6 L (3.8-10.6) k/uL RBC 2.82 L (3.80-5.40) m/uL Hgb 10.3 L (11.4-16.0) gm/dL Hct 29.8 L (34.0-46.0) % MCV 105.5 H (80.0-100.0) fL MCH 36.3 H (25.0-35.0) pg Plt Count 66 L (150-450) k/uL PT (9.0-12.0) sec INR (<1.2) Potassium (3.5-5.1) mmol/L BUN 4 L (7-17) mg/dL Glucose (74-99) mg/dL Calcium 8.0 L (8.4-10.2) mg/dL Thrombosis Risk Factor Assmnt - Choose All That Apply Any of the Below Risk Factors Present?: Yes Each Factor Represents 1 point: Medical pt on bed rest Other Risk Factors: Yes Each Risk Factor Represents 2 Points: Age 61-74 years Other congenital or acquired thrombophilia - If yes, enter type in comment: No Each Risk Factor Represents 5 Points: Hip, pelvis, or leg fracture (< 1 month) Thrombosis Risk Factor Assessment Total Risk Factor Score: 8 Thrombosis Risk Factor Assessment Level: High Risk
[2022-01-14] MEDS: FOLIC ACID 1 MG TAB PO SCH (15:44)
[2022-01-15] MEDS: GABAPENTIN 300 MG CAP PO SCH ×6 (00:08→21:43)
[2022-01-15] MEDS: HEPARIN SODIUM,PORCINE/PF 5,000 UNIT/0.5 ML SYRINGE SQ SCH ×3 (00:08→17:01)
[2022-01-15] MEDS: LORazepam 1 MG TAB PO PRN ×2 (07:01→15:44)
[2022-01-15] MEDS: HYDROmorphone 0.5 MG/0.5 ML SYRINGE IVP PRN (07:02)
--- NOTE | 2022-01-15 07:13 | P.PN ---
Subjective Progress Note Date: 01/15/22 Principal diagnosis: FFS with injury Left hip pain Patient seen and examined at bedside. Patient is resting supine in bed. She remains confused but able to follow direction. maintenance technician 3rd shift RN reports patient having visual hallucinations. Patient is rating her pain a 5-6/10. Pain medication to be provided. During assessment this morning bruising over the right hip has developed over the night. TTP over right hip, x-rays ordered. Patient denies any numbness or tingling to bilateral lower extremities. She remains afebrile, no nausea/vomiting, or complaint of chest pain. Objective - Vital Signs Vital signs: Vital Signs Temp 99.5 F 01/14/22 20:16 Pulse 85 01/14/22 20:16 Resp 16 01/14/22 20:16 BP 127/81 01/14/22 20:16 Pulse Ox 99 01/14/22 20:16 FiO2 Intake & Output 01/14/22 01/14/22 01/15/22 06:59 18:59 06:59 Intake Total 620 Output Total 677 861 8673 Balance -500 120 -1300 Weight 56.699 kg Intake: Oral 620 Output: Urine 444 835 4067 Other: Voiding Method External Catheter External Catheter Indwelling Catheter # Bowel Movements 0 - Exam General: The patient is awake and alert, in no acute distress Skin: Skin is warm and dry. Bruising over right hip noted. Well healed surgical incision to left hip. Eye: Pupils are equal, round and reactive to light, extra-ocular movements are intact; there is normal conjunctiva bilaterally. Neck: The neck is supple, there is no tenderness and ROM intact. Cardiovascular: There is a regular rate and rhythm. No murmur, rub or gallop is appreciated. Respiratory: Lungs are clear to auscultation, respirations are non-labored, breath sounds are equal. Gastrointestinal: Soft, non-distended, non-tender abdomen. Back: There is no tenderness to palpation in the midline, paralumbar, parathoracic or buttocks region. There is no obvious deformity. Musculoskeletal: ROM to Left Hip limited secondary to pain and stiffness from injury. TTP over bilateral hips. Bilateral Calf is soft, no tenderness with palpation. Plantar flexion, dorsiflexion, EHL, FHL are intact. Sensory exam to light touch throughout the bilateral extremity is intact, dorsal pedis pulses 2+. Neurological: CN 2-12 intact. There are no obvious motor or sensory deficits. Movement and coordination equal and intact. Sensory exam to light touch intact C5-T1 and intact from L2-S1. Reflexes 2/4 in bilateral upper and lower extremities. Negative Hoffmans, babinski, and clonus signs. Psychiatric: Cooperative, appropriate mood & affect, normal judgment. - Labs CBC & Chem 7: 01/14/22 07:30 01/14/22 07:30 Labs: Abnormal Lab Results - Last 24 Hours (Table) 01/14/22 01/14/22 Range/Units 07:30 07:30 WBC 3.6 L (3.8-10.6) k/uL RBC 2.82 L (3.80-5.40) m/uL Hgb 10.3 L (11.4-16.0) gm/dL Hct 29.8 L (34.0-46.0) % MCV 105.5 H (80.0-100.0) fL MCH 36.3 H (25.0-35.0) pg Plt Count 66 L (150-450) k/uL BUN 4 L (7-17) mg/dL Calcium 8.0 L (8.4-10.2) mg/dL Assessment and Plan Assessment: FFS with injury Left Greater trochanter fracture Left hip pain Plan: -Awaiting results of right hip xray -20% TTWB of the left lower extremity with walker -Pain control, continue use of oral medication -GI and DVT prophylaxis: senna, heparin -Encourage incentive spirometer -Medical management I reviewed and discussed this case with my attending Dr. Johnson, whom has reviewed this chart and films and is in agreement with assessment and plan of care as outlined above. I have personally seen and examined the patient, performed the documentation and the assessment and plan as written. Number of minutes spent on the visit: 20m
[2022-01-15] MEDS: METOPROLOL TARTRATE 25 MG TAB PO SCH ×3 (08:41→21:43)
[2022-01-15] MEDS: FOLIC ACID 1 MG TAB PO SCH (08:41)
[2022-01-15] MEDS: THIAMINE 100 MG TAB PO SCH (08:41)
[2022-01-15] MEDS: CHOLECALCIFEROL 25 MCG (1000 IU) TABLET PO SCH (08:41)
[2022-01-15] MEDS: PANTOPRAZOLE 40 MG TABLET PO SCH (08:41)
--- NOTE | 2022-01-15 10:40 | XR ---
EXAMINATION TYPE: XR Hip Complete RT DATE OF EXAM: 01/15/2022 COMPARISON: None HISTORY: Pain following fall TECHNIQUE: 2V right hip FINDINGS: Femoral head articulates with the acetabulum. Joint space may be diffusely narrowed. No acu te fracture or dislocation is evident. IMPRESSION: 1. No acute osseous abnormality right hip.
--- NOTE | 2022-01-15 11:50 | P.PN ---
Subjective Progress Note Date: 01/15/22 Principal diagnosis: fall Hospital Course: 66-year-old female with past medical history of hypertension, osteoarthritis, neuropathy, recent left total hip arthroplasty presenting after a mechanical fall. CT head shows cerebral atrophy, no acute intracranial abnormality. X- rays demonstrated nondisplaced fracture of greater trochanter of the left femur. Patient admitted to the orthopedic service. [facility] physicians has been consulted for medical management. Patient is also in acute alcohol withdrawal. Subjective: Patient seen and examined at bedside. Overnight, patient was in acute alcohol withdrawal requiring Ativan. This morning, she is less lucid medication. She denies any pain, shortness of breath, urinary or bowel complaints. She has a Rodriguez catheter in place. Pertinent positives and negatives as discussed above, a complete review of systems was performed and all other systems are negative. Vitals Signs Reviewed. General: nontoxic, no distress, appears at stated age Derm: warm, dry Head: atraumatic, normocephalic, symmetric Eyes: EOMI, no lid lag, anicteric sclera, pupils equal round reactive to light ENT: Nose and ears atraumatic, no pharyngeal erythema Neck: No thyromegaly, supple Mouth: no lip lesion, mucus membranes moist Cardiovascular: S1S2 reg, no murmur, no edema Lungs: clear to auscultation bilateral, no rhonchi, no rales, no wheeze, no accessory muscle use Abdominal: soft, nontender to palpation, no guarding, no appreciable organomegaly, normal bowel sounds Ext: no gross muscle atrophy, muscle strength muscle strength 5 out of 5 in all 4 extremities, no contractures, left hip pain Neuro: CN II-XII grossly intact, light touch intact all 4 extremities Psych: Awake, not oriented Assessment and Plan: Mechanical fall Left greater trochanter fracture Recent left hip arthroplasty -Pain control and DVT prophylaxis orthopedics -Conservative management Acute delirium Alcohol dependence Acute alcohol withdrawal - on CIKY protocol, Ativan when necessary -Thiamine, folic acid Macrocytic anemia -Likely secondary to alcohol use -B12, folic acid levels pending Hypertension Neuropathy Depression -Continue home medications Thank you for allowing us to participate in the care of this pleasant patient. Do not hesitate to contact us with questions. Someone can be reached from the [facility] hospitalist group all hours of the day at [phone] or via perfect serve. Objective - Vital Signs Vital signs: Vital Signs Temp 97.6 F 01/15/22 08:24 Pulse 81 01/15/22 08:24 Resp 18 01/15/22 08:24 BP 111/76 01/15/22 08:24 Pulse Ox 100 01/15/22 08:24 FiO2 Intake & Output 01/14/22 01/15/22 01/15/22 18:59 06:59 18:59 Intake Total 620 Output Total 500 1300 Balance 120 -1300 Intake: Oral 620 Output: Urine 500 1300 Other: Voiding Method External Catheter Indwelling Catheter Indwelling Catheter # Bowel Movements 0 - Labs CBC & Chem 7: 01/14/22 07:30 01/14/22 07:30
[2022-01-15] MEDS: ESCITALOPRAM 5 MG TAB PO SCH (12:38)
[2022-01-16] MEDS: HEPARIN SODIUM,PORCINE/PF 5,000 UNIT/0.5 ML SYRINGE SQ SCH ×4 (00:37→23:51)
[2022-01-16] MEDS: GABAPENTIN 300 MG CAP PO SCH ×6 (00:37→23:51)
--- NOTE | 2022-01-16 10:22 | P.PN ---
Subjective Progress Note Date: 01/16/22 Principal diagnosis: Bilateral hip pain status post fall History of direct anterior left total hip arthroplasty Patient was seen at bedside this morning lying semirecumbent position. Patient says she is still having some pain to the left hip and the right hip as well. Patient says she has gotten up with therapy and nurse several times and sitting up at bedside. Patient says she still has pain when she bears weight to the left lower extremity. camara/catheter is in place. Patient says she normally ambulates independently at home. Patient says she did have left total hip arthroplasty performed about [address] Trivedi. Patient denies chest pain, fever, shortness of breath, nausea, vomiting. Objective - Vital Signs Vital signs: Vital Signs Temp 98.2 F 01/16/22 07:42 Pulse 88 01/16/22 07:58 Resp 17 01/16/22 07:58 BP 93/59 01/16/22 07:42 Pulse Ox 95 01/16/22 07:42 FiO2 Intake & Output 01/15/22 01/16/22 01/16/22 18:59 06:59 18:59 Intake Total 1030 Output Total 400 500 Balance 630 -500 Intake: Oral 1030 Output: Urine 400 500 Other: Voiding Method Indwelling Catheter Indwelling Catheter Indwelling Catheter # Bowel Movements 1 - Exam Ecchymosis present on right lateral hip and left lateral hip. Negative for any open fractures, ulcers, erythema. Sensation is equal, symmetric, intact throughout the upper and lower extremities. Patient does have moderate TTP over the right and left hips diffusely. NTTP throughout rest of exam. Patient has full range of motion bilateral upper extremities. Patient has full range of motion in bilateral knees in flexion/extension and ankles in dorsi/plantar flexion. Patient does have limited range of motion in left and right hips and flexion/extension due to pain. Patient does have some pain during external and internal rotation of left hip. 4+/5 in all major motor groups in BUE. 4+/5 in resisted BLE knee flexion/extension and ankle plantar/dorsiflexion. 4-/5 in resisted hip flexion/extension bilaterally. Neurovascular status intact bilaterally. Radial pulses intact bilaterally. Cap refill under 3 seconds in digits of extremities. Negative Homans bilaterally. - Labs CBC & Chem 7: 01/14/22 07:30 01/14/22 07:30 Assessment and Plan Assessment: 1. Left hip greater trochanter fracture; history of direct anterior left total hip arthroplasty 2. Left hip pain; right hip pain Plan: 1. Left hip greater trochanter fracture; history of direct anterior left total hip arthroplasty; Left hip pain; right hip pain - patient stable at bedside this morning. Right hip x-rays negative for fractures, dislocations. Left hip x-ray does demonstrate greater trochanter fracture. Implant appears intact and stable in the left hip. Negative for any loosening. Patient is remaining 20% toe-touch weightbearing on the left lower extremity and weightbearing as tolerated to the right lower extremity and use walker. Pain medication as needed. Case management has been consult to for placement to rehab. We'll continue to follow patient in hospital. 2. Appreciate medical management 3. Pain management - gabapentin; Tylenol; Dilaudid 4. DVT prophylaxis - heparin 5. GI prophylaxis - senna; Protonix 6. PT/OT - 20% toe-touch weightbearing on the left lower extremity and weightbearing as tolerated to the right lower extremity and use walker 7. Encourage incentive spirometer use 8. Discharge planning - discharge to rehab once accepted Time with Patient: Less than 30
[2022-01-16] MEDS: FOLIC ACID 1 MG TAB PO SCH (10:24)
[2022-01-16] MEDS: THIAMINE 100 MG TAB PO SCH (10:24)
[2022-01-16] MEDS: CHOLECALCIFEROL 25 MCG (1000 IU) TABLET PO SCH (10:24)
[2022-01-16] MEDS: METOPROLOL TARTRATE 25 MG TAB PO SCH ×2 (10:25→20:18)
[2022-01-16] MEDS: PANTOPRAZOLE 40 MG TABLET PO SCH (10:25)
--- NOTE | 2022-01-16 10:36 | P.PN ---
Subjective Progress Note Date: 01/16/22 Principal diagnosis: fall Hospital Course: 66-year-old female with past medical history of hypertension, osteoarthritis, neuropathy, recent left total hip arthroplasty presenting after a mechanical fall. CT head shows cerebral atrophy, no acute intracranial abnormality. X- rays demonstrated nondisplaced fracture of greater trochanter of the left femur. Patient admitted to the orthopedic service. [facility] physicians has been consulted for medical management. Patient is also in acute alcohol withdrawal. Subjective: Patient seen and examined at bedside. No acute events overnight. Patient did not require any Ativan overnight. She denies any pain, shortness of breath, urinary or bowel complaints. She has a Rodriguez catheter in place. Pertinent positives and negatives as discussed above, a complete review of systems was performed and all other systems are negative. Vitals Signs Reviewed. General: nontoxic, no distress, appears at stated age Derm: warm, dry Head: atraumatic, normocephalic, symmetric Eyes: EOMI, no lid lag, anicteric sclera, pupils equal round reactive to light ENT: Nose and ears atraumatic, no pharyngeal erythema Neck: No thyromegaly, supple Mouth: no lip lesion, mucus membranes moist Cardiovascular: S1S2 reg, no murmur, no edema Lungs: clear to auscultation bilateral, no rhonchi, no rales, no wheeze, no accessory muscle use Abdominal: soft, nontender to palpation, no guarding, no appreciable organomegaly, normal bowel sounds Ext: no gross muscle atrophy, muscle strength muscle strength 5 out of 5 in all 4 extremities, no contractures, left hip pain Neuro: CN II-XII grossly intact, light touch intact all 4 extremities Psych: Awake, not oriented Assessment and Plan: Mechanical fall Left greater trochanter fracture Recent left hip arthroplasty -Pain control and DVT prophylaxis orthopedics -Conservative management Acute delirium - resolved Alcohol dependence Acute alcohol withdrawal - on CIIL protocol, Ativan when necessary -Thiamine, folic acid Macrocytic anemia -Likely secondary to alcohol use -B12, folic acid levels normal Hypertension Neuropathy Depression -Continue home medications Patient is medically optimized for possible discharge to rehab facility. Thank you for allowing us to participate in the care of this pleasant patient. Do not hesitate to contact us with questions. Someone can be reached from the [facility] hospitalist group all hours of the day at [phone] or via perfect serve. Objective - Vital Signs Vital signs: Vital Signs Temp 98.2 F 01/16/22 07:42 Pulse 88 01/16/22 07:58 Resp 17 01/16/22 07:58 BP 93/59 01/16/22 07:42 Pulse Ox 95 01/16/22 07:42 FiO2 Intake & Output 01/15/22 01/16/22 01/16/22 18:59 06:59 18:59 Intake Total 1030 Output Total 400 500 Balance 630 -500 Intake: Oral 1030 Output: Urine 400 500 Other: Voiding Method Indwelling Catheter Indwelling Catheter Indwelling Catheter # Bowel Movements 1 - Labs CBC & Chem 7: 01/14/22 07:30 01/14/22 07:30
[2022-01-16] MEDS: ESCITALOPRAM 5 MG TAB PO SCH (12:12)
[2022-01-16] MEDS ORDERED: SODIUM CHLORIDE 0.9% 1,000 ML IV ONE (13:52)
[2022-01-16 14:37] LABS: Basophils % (A) 0 %; Eosinophils # (A) 0.1 k/uL (0-0.7); Eosinophils % (A) 2 %; HCT 27.2 % (34.0-46.0); HGB 9.6 gm/dL (11.4-16.0); Lymphocytes # (A) 1.5 k/uL (1.0-4.8); Lymphocytes % (A) 32 %; MCH 37.6 pg (25.0-35.0); MCHC 35.4 g/dL (31.0-37.0); MCV 106.2 fL (80.0-100.0); Macrocytosis Moderate; Mean Platelet Volume 9.8; Monocytes # (A) 0.4 k/uL (0-1.0); Monocytes % (A) 9 %; Neutrophils # (A) 2.6 k/uL (1.3-7.7); Neutrophils % (A) 54 %; RBC 2.56 m/uL (3.80-5.40); RDW 13.3 % (11.5-15.5); WBC 4.7 k/uL (3.8-10.6)
[2022-01-16 14:41] LABS: Platelet Count 90 k/uL (150-450)
[2022-01-16 14:47] LABS: African American GFR (CKD) 72 (>60 ml/min/1.73 sqM); Anion Gap 4 mmol/L; Blood Urea Nitrogen 9 mg/dL (7-17); Calcium 7.4 mg/dL (8.4-10.2); Carbon Dioxide 30 mmol/L (22-30); Chloride 99 mmol/L (98-107); Glucose 106 mg/dL (74-99); Magnesium 1.2 mg/dL (1.6-2.3); Non-African American GFR(CKD) 62 (>60 ml/min/1.73 sqM); Potassium 3.4 mmol/L (3.5-5.1); Sodium 133 mmol/L (137-145)
[2022-01-16] MEDS: SODIUM CHLORIDE 0.9% 1,000 ML IV SCH ×2 (15:38→20:18)
[2022-01-16] MEDS ORDERED: Magnesium Replacement Protocol 1 EACH MISC MISCELLANE PRN (16:19)
[2022-01-16] MEDS: MAGNESIUM SULFATE-D5W PMX 1 GM in DEXTROSE/WATER 1 100ML.BAG IVPB SCH ×3 (17:21→22:02)
[2022-01-16] MEDS ORDERED: MAGNESIUM SULFATE-D5W PMX 1 GM in DEXTROSE/WATER 1 100ML.BAG IVPB ONE (23:00)
[2022-01-17] MEDS ORDERED: SODIUM CHLORIDE 0.9% 1,000 ML IV ONE (01:41)
[2022-01-17] MEDS: SODIUM CHLORIDE 0.9% 1,000 ML IV SCH ×2 (02:51→12:52)
[2022-01-17] MEDS: GABAPENTIN 300 MG CAP PO SCH ×3 (06:11→16:44)
[2022-01-17] MEDS: PANTOPRAZOLE 40 MG TABLET PO SCH (06:48)
[2022-01-17 07:39] VITALS: RESP 16; TEMP 98.1
[2022-01-17] MEDS: FOLIC ACID 1 MG TAB PO SCH (08:04)
[2022-01-17] MEDS: THIAMINE 100 MG TAB PO SCH (08:04)
[2022-01-17] MEDS: METOPROLOL TARTRATE 25 MG TAB PO SCH (08:04)
[2022-01-17] MEDS: HEPARIN SODIUM,PORCINE/PF 5,000 UNIT/0.5 ML SYRINGE SQ SCH ×2 (08:05→16:44)
[2022-01-17] MEDS: CHOLECALCIFEROL 25 MCG (1000 IU) TABLET PO SCH (08:08)
--- NOTE | 2022-01-17 11:45 | P.PN ---
Subjective Progress Note Date: 01/17/22 Principal diagnosis: fall Hospital Course: 66-year-old female with past medical history of hypertension, osteoarthritis, neuropathy, recent left total hip arthroplasty presenting after a mechanical fall. CT head shows cerebral atrophy, no acute intracranial abnormality. X- rays demonstrated nondisplaced fracture of greater trochanter of the left femur. Patient admitted to the orthopedic service. [facility] [place] physicians has been consulted for medical management. Patient was also in acute alcohol withdrawal. Subjective: Patient seen and examined at bedside. No acute events overnight. Patient did not require any Ativan overnight. She denies any pain, shortness of breath, urinary or bowel complaints. Rodriguez catheter discontinued. Pertinent positives and negatives as discussed above, a complete review of systems was performed and all other systems are negative. Vitals Signs Reviewed. General: nontoxic, no distress, appears at stated age Derm: warm, dry Head: atraumatic, normocephalic, symmetric Eyes: EOMI, no lid lag, anicteric sclera, pupils equal round reactive to light ENT: Nose and ears atraumatic, no pharyngeal erythema Neck: No thyromegaly, supple Mouth: no lip lesion, mucus membranes moist Cardiovascular: S1S2 reg, no murmur, no edema Lungs: clear to auscultation bilateral, no rhonchi, no rales, no wheeze, no accessory muscle use Abdominal: soft, nontender to palpation, no guarding, no appreciable organomegaly, normal bowel sounds Ext: no gross muscle atrophy, muscle strength muscle strength 5 out of 5 in all 4 extremities, no contractures Neuro: CN II-XII grossly intact, light touch intact all 4 extremities Psych: Awake, not oriented Assessment and Plan: Mechanical fall Left greater trochanter fracture Recent left hip arthroplasty -Pain control and DVT prophylaxis orthopedics -Conservative management Acute delirium - resolved Alcohol dependence Acute alcohol withdrawal - on CIWA protocol, Ativan when necessary -Thiamine, folic acid Macrocytic anemia -Likely secondary to alcohol use -B12, folic acid levels normal Hypertension Neuropathy Depression -Continue home medications Patient is medically optimized for possible discharge to rehab facility. Thank you for allowing us to participate in the care of this pleasant patient. Do not hesitate to contact us with questions. Someone can be reached from the [facility] hospitalist group all hours of the day at [phone] or via perfect serve. Objective - Vital Signs Vital signs: Vital Signs Temp 98.1 F 01/17/22 07:39 Pulse 85 01/17/22 07:39 Resp 16 01/17/22 08:00 BP 93/60 01/17/22 07:39 Pulse Ox 95 01/17/22 07:39 FiO2 Intake & Output 01/16/22 01/17/22 01/17/22 18:59 06:59 18:59 Intake Total 1699 Output Total 100 1800 Balance 1599 -1800 Intake: Intake, IV Titration 1699 Amount Magnesium Sulfate-D5w Pmx 100 1 gm In Dextrose/Water 1 100ml.bag @ 100 mls/hr IVPB Q1H [facility] Rx#: [id number] Sodium Chloride 0.9% 1, 600 000 ml @ 150 mls/hr IV . Q6H40M [facility] Rx#:[id number] Sodium Chloride 0.9% 1, 999 000 ml @ 999 mls/hr IV . Q1H1M [facility] Rx#:[id number] Output: Urine 100 1800 Other: Voiding Method Indwelling Catheter Indwelling Catheter Indwelling Catheter # Bowel Movements 1 - Labs CBC & Chem 7: 01/16/22 14:15 01/16/22 14:15 Labs: Abnormal Lab Results - Last 24 Hours (Table) 01/16/22 01/16/22 Range/Units 14:15 14:15 RBC 2.56 L (3.80-5.40) m/uL Hgb 9.6 L (11.4-16.0) gm/dL Hct 27.2 L (34.0-46.0) % MCV 106.2 H (80.0-100.0) fL MCH 37.6 H (25.0-35.0) pg Plt Count 90 L (150-450) k/uL Sodium 133 L (137-145) mmol/L Potassium 3.4 L (3.5-5.1) mmol/L Glucose 106 H (74-99) mg/dL Calcium 7.4 L (8.4-10.2) mg/dL Magnesium 1.2 L (1.6-2.3) mg/dL
[2022-01-17] MEDS: ESCITALOPRAM 5 MG TAB PO SCH (11:57)
--- NOTE | 2022-01-17 12:09 | P.PN ---
Subjective Progress Note Date: 01/17/22 Principal diagnosis: Bilateral hip pain status post fall History of direct anterior left total hip arthroplasty Patient was seen at bedside this morning lying semirecumbent position. Patient says she is still having some pain to the left hip. Patient says she was able to get up with physical therapy yesterday and walk around the bed to the chair. Patient says she still has pain when she bears weight to the left lower extremity. Patient says she normally ambulates independently at home. Patient says she did have left total hip arthroplasty performed about [address] Trivedi. Patient denies chest pain, fever, shortness of breath, nausea, vomiting. Objective - Vital Signs Vital signs: Vital Signs Temp 98.1 F 01/17/22 07:39 Pulse 85 01/17/22 07:39 Resp 16 01/17/22 07:39 BP 93/60 01/17/22 07:39 Pulse Ox 95 01/17/22 07:39 FiO2 Intake & Output 01/16/22 01/17/22 01/17/22 18:59 06:59 18:59 Intake Total 1699 Output Total 100 1800 Balance 1599 -1800 Intake: Intake, IV Titration 1699 Amount Magnesium Sulfate-D5w Pmx 100 1 gm In Dextrose/Water 1 100ml.bag @ 100 mls/hr IVPB Q1H [facility] Rx#: [id number] Sodium Chloride 0.9% 1, 600 000 ml @ 150 mls/hr IV . Q6H40M [facility] Rx#:[id number] Sodium Chloride 0.9% 1, 999 000 ml @ 999 mls/hr IV . Q1H1M [facility] Rx#:[id number] Output: Urine 100 1800 Other: Voiding Method Indwelling Catheter Indwelling Catheter # Bowel Movements 1 - Exam Ecchymosis present on right lateral hip and left lateral hip. Negative for any open fractures, ulcers, erythema. Sensation is equal, symmetric, intact throughout the upper and lower extremities. Patient does have moderate TTP over the right and left hips diffusely. NTTP throughout rest of exam. Patient has f ull range of motion bilateral upper extremities. Patient has full range of motion in bilateral knees in flexion/extension and ankles in dorsi/plantar flexion. Patient does have limited range of motion in left and right hips and flexion/extension due to pain. Patient does have some pain during external and internal rotation of left hip. 4+/5 in all major motor groups in BUE. 4+/5 in resisted BLE knee flexion/extension and ankle plantar/dorsiflexion. 4-/5 in resisted hip flexion/extension bilaterally. Neurovascular status intact bilaterally. Radial pulses intact bilaterally. Cap refill under 3 seconds in digits of extremities. Negative Homans bilaterally. - Labs CBC & Chem 7: 01/16/22 14:15 01/16/22 14:15 Labs: Abnormal Lab Results - Last 24 Hours (Table) 01/16/22 01/16/22 Range/Units 14:15 14:15 RBC 2.56 L (3.80-5.40) m/uL Hgb 9.6 L (11.4-16.0) gm/dL Hct 27.2 L (34.0-46.0) % MCV 106.2 H (80.0-100.0) fL MCH 37.6 H (25.0-35.0) pg Plt Count 90 L (150-450) k/uL Sodium 133 L (137-145) mmol/L Potassium 3.4 L (3.5-5.1) mmol/L Glucose 106 H (74-99) mg/dL Calcium 7.4 L (8.4-10.2) mg/dL Magnesium 1.2 L (1.6-2.3) mg/dL Assessment and Plan Assessment: 1. Left hip greater trochanter fracture; history of direct anterior left total hip arthroplasty 2. Left hip pain; right hip pain Plan: 1. Left hip greater trochanter fracture; history of direct anterior left total hip arthroplasty; Left hip pain; right hip pain - patient stable at bedside this morning. Right hip x-rays negative for fractures, dislocations. Left hip x-ray does demonstrate greater trochanter fracture. Implant appears intact and stable in the left hip. Negative for any loosening. Patient is remaining 20% toe-touch weightbearing on the left lower extremity and weightbearing as tolerated to the right lower extremity and use walker. Pain medication as needed. Discharge to rehab today 2. Appreciate medical management 3. Pain management - gabapentin; Tylenol; Dilaudid 4. DVT prophylaxis - heparin 5. GI prophylaxis - senna; Protonix 6. PT/OT - 20% toe-touch weightbearing on the left lower extremity and weightbearing as tolerated to the right lower extremity and use walker 7. Encourage incentive spirometer use 8. Discharge planning - discharge to rehab today Time with Patient: Less than 30
--- NOTE | 2022-01-17 12:16 | P.DS ---
Providers Date of admission: 01/13/22 19:21 Expected date of discharge: 01/17/22 Attending physician: David Johnson Consults: 01/14/22 07:09 Consult Physician Routine Consulting Provider: Lopez Hong Consult Reason/Comments: Medical Management Do you want consulting provider notified?: Yes Primary care physician: Jarvis Bernard Hospital Course: Date of admission: 01/14/2022 Date of discharge: 01/17/2022 Admission diagnosis: Left hip greater trochanter fracture Discharge diagnosis: Left hip greater trochanter fracture Attending physician: Dr. Johnson Surgical procedures: None Brief history: Patient is a 66-year-old female with a history of left hip greater trochanter fracture status post fall. Nonoperative conservative treatment measures were used for this fracture. Hospital course: Patient's orthopeidc and medical care was provided daily. Patient had daily laboratory tests performed for evaluation of overall blood counts. Patient had daily physical therapy to include strengthening range of motion as well as education with walker ambulation. Patient was treated with heparin for their postoperative DVT prophylaxis during their inpatient stay. Patient reported satisfactory pain control with oral pain medications by day #3 of admission. Patient showed satisfactory progress with physical therapy. Patient moved steadily through the program and had no difficulty meeting the goals. Given patient's otherwise satisfactory course and having met physical therapy goals, plan is to discharge patient to rehab. Discharge condition/disposition: Patient will be discharged to rehab in stable condition. Discharge medications: Instructions are given on resumption of patient's normal daily medications per primary care recommendation, in addition patient will be prescribed gabapentin; tramadol; aspirin 325 mg 21 days. Discharge instructions: 1. 20% toe-touch weightbearing to the left lower extremity. Weight-bear as tolerated to the right lower extremity 2. Utilize walker / cane until follow-up. 3. Ice and elevate when necessary. Do not exceed 20 minutes per hour with ice pack. 4. Nursing care. 5. Physical therapy. 6. Pain meds and anticoagulants per prescription. 7. Pain medication has potential to cause constipation. Increase oral fluid and fiber intake. Contact primary care provider if you have not had a bowel movement within 48 hours after discharge 8. No anti-inflammatory medication until discussed at first post operative visit, this including Motrin, Aleve, Mobic, Diclofenac. 9. Follow up in office at 2 weeks postop with Toi Whatley PA-C / Charanjit Cortez PA-C 10. Follow up with your primary care doctor 7-10 days after discharge. 11. Contact [facility] with any questions, . Assessment: Left hip greater trochanter fracture Procedures: None Patient Condition at Discharge: Good Plan - Discharge Summary Discharge Rx Participant: Yes New Discharge Prescriptions: New Folic Acid 1 mg PO DAILY #0 tab Acetaminophen Tab [Tylenol] 650 mg PO Q6HR PRN tab PRN Reason: Fever And/ Or Pain Thiamine [Vitamin B-1] 100 mg PO DAILY #0 tab Gabapentin 300 mg PO TID 3 Days #21 cap traMADol HCl [Ultram] 50 mg PO Q8H PRN #18 tab PRN Reason: Pain Aspirin 325 mg PO DAILY #21 tab Continue diphenhydrAMINE [Benadryl] 25 mg PO HS Metoprolol Tartrate [Lopressor] 25 mg PO BID Escitalopram [Lexapro] 5 mg PO W/LUNCH Omeprazole [PriLOSEC] 20 mg PO DAILY Gabapentin [Neurontin] 300 mg PO 5XD Cholecalciferol [Vitamin D3 (25 Mcg = 1000 Iu)] 50 mcg PO DAILY Discharge Medication List Cholecalciferol [Vitamin D3 (25 Mcg = 1000 Iu)] 50 mcg PO DAILY 01/13/22 [History] Escitalopram [Lexapro] 5 mg PO W/LUNCH 01/13/22 [History] Gabapentin [Neurontin] 300 mg PO 5XD 01/13/22 [History] Metoprolol Tartrate [Lopressor] 25 mg PO BID 01/13/22 [History] Omeprazole [PriLOSEC] 20 mg PO DAILY 01/13/22 [History] diphenhydrAMINE [Benadryl] 25 mg PO HS 01/13/22 [History] Acetaminophen Tab [Tylenol] 650 mg PO Q6HR PRN tab 01/17/22 [Rx] Aspirin 325 mg PO DAILY #21 tab 01/17/22 [Rx] Folic Acid 1 mg PO DAILY #0 tab 01/17/22 [Rx] Gabapentin 300 mg PO TID 3 Days #21 cap 01/17/22 [Rx] Thiamine [Vitamin B-1] 100 mg PO DAILY #0 tab 01/17/22 [Rx] traMADol HCl [Ultram] 50 mg PO Q8H PRN #18 tab 01/17/22 [Rx] Follow up Appointment(s)/Referral(s): Jarvis Bernard MD [Primary Care Provider] - 1-2 days Louis Whatley PAC [PHYSICIAN CALL CENTER PROFESSIONAL] - 2 Weeks Activity/Diet/Wound Care/Special Instructions: Discharge instructions: 1. 20% toe-touch weightbearing to the left lower extremity. Weight-bear as tolerated to the right lower extremity 2. Utilize walker / cane until follow-up. 3. Ice and elevate when necessary. Do not exceed 20 minutes per hour with ice pack. 4. Nursing care. 5. Physical therapy. 6. Pain meds and anticoagulants per prescription. 7. Pain medication has potential to cause constipation. Increase oral fluid and fiber intake. Contact primary care provider if you have not had a bowel movement within 48 hours after discharge 8. No anti-inflammatory medication until discussed at first post operative visit, this including Motrin, Aleve, Mobic, Diclofenac. 9. Follow up in office at 2 weeks postop with Toi Whatley PA-C / Charanjit Cortez PA-C 10. Follow up with your primary care doctor 7-10 days after discharge. 11. Contact [facility] with any questions, . Medications: Tramadol; gabapentin; aspirin 325 mg daily 21 days Discharge Disposition: TRANSFER TO SNF/ECF
[2022-01-17 14:24] VITALS: BP 90/57; PULSE 69
== END 2022-01-17 18:10 | DRG 536 ==
LOC: EC 16:07 → 4SSUR 19:21
PROVIDERS: ADMIT Orthopaedic Surgery; ATTEND Orthopaedic Surgery
DX: S72.115A Nondisplaced fracture of greater trochanter of left femur, initial encounter for closed fracture (principal); F10.231 Alcohol dependence with withdrawal delirium; D53.9 Nutritional anemia, unspecified; G31.9 Degenerative disease of nervous system, unspecified; Z20.822 Contact with and (suspected) exposure to COVID-19; E16.2 Hypoglycemia, unspecified; E87.6 Hypokalemia; I10 Essential (primary) hypertension; M19.90 Unspecified osteoarthritis, unspecified site; G62.9 Polyneuropathy, unspecified; K76.9 Liver disease, unspecified; F32.A Depression, unspecified; F41.9 Anxiety disorder, unspecified; Z96.642 Presence of left artificial hip joint; Z79.899 Other long term (current) drug therapy; Z91.81 History of falling; W10.8XXA Fall (on) (from) other stairs and steps, initial encounter; Y92.008 Other place in unspecified non-institutional (private) residence as the place of occurrence of the external cause; Z88.5 Allergy status to narcotic agent; Z88.2 Allergy status to sulfonamides
CPT/HCPCS: 36415; 70450; 72125; 73502; 80048; 82607; 82746; 83605; 83735; 85025; 85610; 85730; 87635; 96374; 96375; 99285

== ENCOUNTER 2022-12-01 09:32 | Observation (INO) | payer MEDICARE, BC ==
[2022-12-01] MEDS ORDERED: SODIUM CHLORIDE 0.9% 1,000 ML IV ONE (09:52)
[2022-12-01] MEDS ORDERED: THIAMINE 500 MG in SODIUM CHLORIDE 0.9% 100 ML IVPB STA (09:57)
--- NOTE | 2022-12-01 09:58 | ED ---
General Adult HPI - General Chief complaint: Recheck/Abnormal Lab/Rx Stated complaint: Abnormal Labs Time Seen by Provider: 12/01/22 09:39 Source: patient, RN notes reviewed Mode of arrival: ambulatory Limitations: no limitations - History of Present Illness Initial comments: Patient is a pleasant 67-year-old female presenting to the emergency department with an episode of confusion. Patient states episode occurred yesterday. Patient states she did not remember what she was trying to say. In addition to that when she was driving around the same time she did not know where she was going. No history of similar symptoms previously. Patient states episode was short in no other episodes since that time. Currently patient is symptom-free. Patient does have a history of alcohol abuse, sober for the past one year. Patient did see her doctor who did finding thiamine to be critically low and recommended she come for an infusion of thiamine - Related Data Home Medications Medication Instructions Recorded Confirmed Cholecalciferol [Vitamin D3 (25 50 mcg PO DAILY 01/13/22 01/13/22 Mcg = 1000 Iu)] Escitalopram [Lexapro] 5 mg PO W/LUNCH 01/13/22 01/13/22 Gabapentin [Neurontin] 300 mg PO 5XD 01/13/22 01/13/22 Metoprolol Tartrate [Lopressor] 25 mg PO BID 01/13/22 01/13/22 Omeprazole [PriLOSEC] 20 mg PO DAILY 01/13/22 01/13/22 diphenhydrAMINE [Benadryl] 25 mg PO HS 01/13/22 01/13/22 Previous Rx's Medication Instructions Recorded Acetaminophen Tab [Tylenol] 650 mg PO Q6HR PRN tab 01/17/22 Aspirin 325 mg PO DAILY #21 tab 01/17/22 Folic Acid 1 mg PO DAILY #0 tab 01/17/22 Gabapentin 300 mg PO TID 3 Days #21 cap 01/17/22 Thiamine [Vitamin B-1] 100 mg PO DAILY #0 tab 01/17/22 traMADol HCl [Ultram] 50 mg PO Q8H PRN #18 tab 01/17/22 Allergies Allergy/AdvReac Type Severity Reaction Status Date / Time Sulfa (Sulfonamide Allergy Nausea & Verified 12/01/22 09:37 Antibiotics) Vomiting codeine AdvReac Nausea & Verified 12/01/22 09:37 Vomiting Review of Systems ROS Statement: Those systems with pertinent positive or pertinent negative responses have been documented in the HPI. ROS Other: All systems not noted in ROS Statement are negative. Constitutional: Denies: fever Eyes: Denies: eye pain ENT: Denies: ear pain Respiratory: Denies: cough Cardiovascular: Denies: chest pain Endocrine: Denies: fatigue Gastrointestinal: Denies: abdominal pain Genitourinary: Denies: dysuria Neurological: Reports: as per HPI. Denies: headache Past Medical History Past Medical History: Hypertension, Liver Disease, Osteoarthritis (OA), Syncope Additional Past Medical History / Comment(s): Neuropathy upper and lower extremities, more so in the lower. History of Any Multi-Drug Resistant Organisms: None Reported Past Surgical History: Breast Surgery, Section, Cholecystectomy Additional Past Surgical History / Comment(s): 3 ceserean Sections, BREAST REDUCTION. Past Anesthesia/Blood Transfusion Reactions: No Reported Reaction Past Psychological History: Anxiety Smoking Status: Never smoker Past Alcohol Use History: Abuse, Daily Past Drug Use History: None Reported - Past Family History Mother Family Medical History: Cancer Additional Family Medical History / Comment(s): COLON AND UTERINE CANCER, and thyroid Cancer Sister(s) Family Medical History: Cancer Additional Family Medical History / Comment(s): BREAST CANCER General Exam Limitations: no limitations General appearance: alert, in no apparent distress Head exam: Present: atraumatic Eye exam: Present: normal appearance, PERRL, EOMI ENT exam: Present: normal oropharynx Neck exam: Present: normal inspection Respiratory exam: Present: normal lung sounds bilaterally Cardiovascular Exam: Present: regular rate, normal rhythm GI/Abdominal exam: Present: soft. Absent: tenderness Extremities exam: Present: normal inspection Neurological exam: Present: alert, oriented X3, CN II-XII intact. Absent: motor sensory deficit Expanded Neurological exam: Present: protecting the airway Patient oriented to: Present: person, place, time Speech: Present: fluid speech Cranial nerves: EOM's Intact: Normal Sensory exam: Upper Extremity Light Touch: Normal, Lower Extremity Light Touch: Normal Motor strength exam: RUE: 5, LUE: 5, RLE: 5, LLE: 5 Eye Response: (4) open spontaneously Motor Response: (6) obeys commands Verbal Response: (5) oriented Psychiatric exam: Present: normal affect, normal mood Skin exam: Present: normal color Course Vital Signs 12/01/22 12/01/22 09:35 12:01 Temperature 98.2 F Pulse Rate 66 68 Respiratory 20 18 Rate Blood Pressure 120/80 117/80 O2 Sat by Pulse 96 100 Oximetry Medical Decision Making - Medical Decision Making Was pt. sent in by a medical professional or institution (, [facility], REGULATED PROGRAM MANAGER, urgent care, hospital, or senior care...) When possible be specific @ -Patient was sent by Dr. Bernard's office. Did you speak to anyone other than the patient for history (EMS, parent, family, police, friend...)? What history was obtained from this source @ -Did speak with practitioner Pascual who did evaluate the patient earlier today Did you review nursing and triage notes (agree or disagree)? Why? @ -I reviewed and agree with nursing and triage notes Were old charts reviewed (outside hosp., previous admission, EMS record, old EKG, old radiological studies, urgent care reports/EKG's, senior care records)? Report findings @ -No old charts were reviewed Differential Diagnosis (chest pain, altered mental status, abdominal pain women, abdominal pain men, vaginal bleeding, weakness, fever, dyspnea, syncope, headache, dizziness, GI bleed, back pain, seizure, CVA, palpatations, mental health, musculoskeletal)? @ -Differential Altered Mental Status: Hypoglycemia, DKA, hypercapnia, ETOH, overdose, CO poisoning, trauma, myxedema coma, HTN encephalopathy, infection, encephalitis, psychosis, intercranial hemorrhage, hepatic encephalopathy, meningitis, CVA, this is not meant to be an all-inclusive list EKG interpreted by me (3pts min.). @ -EKG interpreted by myself shows sinus rhythm with a rate of 62. Left axis. Normal QRS. Nonspecific T waves X-rays interpreted by me (1pt min.). @ -2 view chest x-ray shows no acute process CT interpreted by me (1pt min.). @ -Report reviewed U/S interpreted by me (1pt. min.). @ -None done What testing was considered but not performed or refused? (CT, X-rays, U/S, labs)? Why? @ -None What meds were considered but not given or refused? Why? @ -None Did you discuss the management of the patient with other professionals (professionals i.e. , PA, REGULATED PROGRAM MANAGER, lab, RT, psych nurse, sexual assault social worker, wireless development manager, teacher, accounts officer, case management assistant)? Give summary @ -Case was discussed with Dr. Brasher with [facility] who will admit covering Dr. Bernard. Was smoking cessation discussed for >3mins.? @ -No Was critical care preformed (if so, how long)? @ -No Were there social determinants of health that impacted care today? How? (Homelessness, low income, unemployed, alcoholism, drug addiction, transportation, low edu. Level, literacy, decrease access to med. care, intermediate, rehab)? @ -No Was there de-escalation of care discussed even if they declined (Discuss DNR or withdrawal of care, Hospice)? DNR status @ -No What co-morbidities impacted this encounter? (DM, HTN, Smoking, COPD, CAD, Cancer, CVA, ARF, Chemo, Hep., AIDS, mental health diagnosis, sleep apnea, morbid obesity)? @ -None Was patient admitted / discharged? Hospital course, mention meds given and route, prescriptions, significant lab abnormalities, going to OR and other pertinent info. @ -Patient reevaluated and resting comfortably in bed. While it is concerning for thiamine deficiency it is unclear if this is related to that or not. Patient had a transient episode which is concerning for TIA. Patient will be admitted with neurology consult. Undiagnosed new problem with uncertain prognosis? @ -No Drug Therapy requiring intensive monitoring for toxicity (Heparin, Nitro, Insulin, Cardizem)? @ -No Were any procedures done? @ -No Diagnosis/symptom? @ -TIA Acute, or Chronic, or Acute on Chronic? @ -Acute Uncomplicated (without systemic symptoms) or Complicated (systemic symptoms)? @ -default Side effects of treatment? @ -No Exacerbation, Progression, or Severe Exacerbation? @ -No Poses a threat to life or bodily function? How? (Chest pain, [place], [place], pneumonia, PE, COPD, DKA, ARF, appy, cholecystitis, CVA, Diverticulitis, Homicidal, Suicidal, threat to staff... and all critical care pts) @ -No - Lab Data Result diagrams: 12/01/22 10:00 12/01/22 10:00 Lab Results 12/01/22 12/01/22 12/01/22 Range/Units 10:00 10:00 10:00 WBC 6.4 (3.8-10.6) k/uL RBC 4.09 (3.80-5.40) m/uL Hgb 13.8 (11.4-16.0) gm/dL Hct 42.0 (34.0-46.0) % MCV 102.9 H (80.0-100.0) fL MCH 33.8 (25.0-35.0) pg MCHC 32.9 (31.0-37.0) g/dL RDW 16.7 H (11.5-15.5) % Plt Count 138 L (150-450) k/uL MPV 8.6 Neutrophils % 60 % Lymphocytes % 26 % Monocytes % 8 % Eosinophils % 5 % Basophils % 0 % Neutrophils # 3.8 (1.3-7.7) k/uL Lymphocytes # 1.6 (1.0-4.8) k/uL Monocytes # 0.5 (0-1.0) k/uL Eosinophils # 0.3 (0-0.7) k/uL Basophils # 0.0 (0-0.2) k/uL Anisocytosis Slight Macrocytosis Slight PT 11.3 (9.0-12.0) sec INR 1.1 (<1.2) APTT 22.7 (22.0-30.0) sec Sodium 140 (137-145) mmol/L Potassium 3.9 (3.5-5.1) mmol/L Chloride 104 (98-107) mmol/L Carbon Dioxide 26 (22-30) mmol/L Anion Gap 10 mmol/L BUN 9 (7-17) mg/dL Creatinine 1.16 H (0.52-1.04) mg/dL Est GFR (CKD-EPI)AfAm 56 (>60 ml/min/1.73 sqM) Est GFR (CKD-EPI)NonAf 48 (>60 ml/min/1.73 sqM) Glucose 88 (74-99) mg/dL Calcium 9.4 (8.4-10.2) mg/dL Magnesium 1.4 L (1.6-2.3) mg/dL Total Bilirubin 0.6 (0.2-1.3) mg/dL AST 65 H (14-36) U/L ALT 27 (4-34) U/L Alkaline Phosphatase 96 (38-126) U/L Total Protein 7.8 (6.3-8.2) g/dL Albumin 3.9 (3.5-5.0) g/dL Serum Alcohol <10 mg/dL Disposition Clinical Impression: TIA (transient ischemic attack) Disposition: ADMITTED IP TO THIS HOSP Is patient prescribed a controlled substance at d/c from ED?: No Referrals: Jarvis Bernard MD [Primary Care Provider] - 1-2 days Time of Disposition: 13:31
[2022-12-01 10:05] LABS: Anisocytosis Slight; Basophils % (A) 0 %; Eosinophils # (A) 0.3 k/uL (0-0.7); Eosinophils % (A) 5 %; HGB 13.8 gm/dL (11.4-16.0); Lymphocytes # (A) 1.6 k/uL (1.0-4.8); Lymphocytes % (A) 26 %; MCH 33.8 pg (25.0-35.0); MCHC 32.9 g/dL (31.0-37.0); MCV 102.9 fL (80.0-100.0); Macrocytosis Slight; Mean Platelet Volume 8.6; Monocytes # (A) 0.5 k/uL (0-1.0); Monocytes % (A) 8 %; Neutrophils # (A) 3.8 k/uL (1.3-7.7); Neutrophils % (A) 60 %; Platelet Count 138 k/uL (150-450); RBC 4.09 m/uL (3.80-5.40); RDW 16.7 % (11.5-15.5); WBC 6.4 k/uL (3.8-10.6)
[2022-12-01 10:26] LABS: ALT 27 U/L (4-34); AST 65 U/L (14-36); African American GFR (CKD) 56 (>60 ml/min/1.73 sqM); Albumin 3.9 g/dL (3.5-5.0); Alcohol <10 mg/dL; Alkaline Phosphatase 96 U/L (38-126); Anion Gap 10 mmol/L; Blood Urea Nitrogen 9 mg/dL (7-17); Calcium 9.4 mg/dL (8.4-10.2); Carbon Dioxide 26 mmol/L (22-30); Chloride 104 mmol/L (98-107); Glucose 88 mg/dL (74-99); Magnesium 1.4 mg/dL (1.6-2.3); Non-African American GFR(CKD) 48 (>60 ml/min/1.73 sqM); Potassium 3.9 mmol/L (3.5-5.1); Sodium 140 mmol/L (137-145); Total Bilirubin 0.6 mg/dL (0.2-1.3); Total Protein 7.8 g/dL (6.3-8.2)
[2022-12-01 10:33] LABS: INR 1.1 (<1.2); Partial Thromboplastin Time 22.7 sec (22.0-30.0); Prothrombin Time 11.3 sec (9.0-12.0)
--- NOTE | 2022-12-01 11:11 | CT ---
EXAMINATION TYPE: CT brain wo con DATE OF EXAM: 12/01/2022 COMPARISON: 01/13/2022 HISTORY: AMS CT DLP: 1130.[address] of the brain was performed. The ventricles, basal cisterns and sulci overlying the cerebral convexities demonstrate mild enlargem ent. There is no evidence for intracranial hemorrhage or sulcal effacement. There is decreased attenuation about the periventricular white matter and deep white matter of both c erebral hemispheres, compatible with chronic small vessel ischemia. Differential diagnosis does inclu de demyelination. No mass effects are seen.No midline shift. Osseous calvarium is intact. If symptoms persist consider MRI. IMPRESSION: 1. Age related atrophic and chronic small vessel ischemic change without acute intracranial process s een at this time.
--- NOTE | 2022-12-01 11:17 | XR ---
EXAMINATION TYPE: XR chest 2V DATE OF EXAM: 12/01/2022 COMPARISON: NONE HISTORY: Shortness of breath TECHNIQUE: Frontal and lateral views of the chest are obtained. FINDINGS: Scattered senescent parenchymal changes noted. Hyperinflation compatible with COPD. No evidence for infiltrate. No evidence for atelectasis. Fixed hiatal hernia noted. Heart size is stable. Mediastinal structures are stable and grossly unremarkable. No evidence for hilar prominence. Degenerative changes dorsal spine. IMPRESSION: 1. No evidence for acute pulmonary disease.
[2022-12-01] MEDS ORDERED: ASPIRIN 325 MG TAB PO STA (13:32)
--- NOTE | 2022-12-01 16:41 | P.HPIM ---
History of Present Illness H&P Date: 12/01/22 67-year-old female with PMH of chronic alcohol abuse, neuropathy, hypertension, depression presents to the ED after being sent in by her PCP. Patient reports 1 day of confusion that is currently resolved. She was going to to [facility] appointment where she felt she was on time, but it turned out she was one hour late. After her appointment, she was not able to remember right away the directions to her house, even though she was able to get home eventually. Patient denies any slurred speech, facial droop, difficulty swallowing or any focal neurologic deficits. She reports an unsteady gait for many years which she attributes to severe peripheral neuropathy in her bilateral lower extremiti es. She follows Dr. Garcia her neurologist who is treating her neuropathy. She currently feels at baseline. She reports a 10 year history of drinking a fifth of hard liquor daily, quit 2 years ago. The case was discussed with her PCP Lillie palomo who said she wanted to patient to be seen in the ED for undetectable levels of thiamine. She is currently being treated for B12 and folic acid deficiency in the outpatient setting. In the ED, her vital signs were stable. CBC showed MCV of 102.9 and platelet count of 138. INR was 1.1. CMP showed creatinine of 1.16, AST of 65. Ma gnesium level 1.4. CT head showed age-related atrophic and chronic small vessel ischemic changes without acute process. Chest x-ray was negative. EKG showed sinus rhythm with no ST elevation. The ED physician was concerned for possible CVA and patient was admitted for further workup. Pertinent positives and negatives as discussed in HPI, a complete review of systems was performed and all other systems are negative. General: non toxic, no distress, appears at stated age Derm: warm, dry Head: atraumatic, normocephalic, symmetric Eyes: EOMI, no lid lag, anicteric sclera Mouth: no lip lesion, mucus membranes moist Cardiovascular: S1S2 reg, no murmur Lungs: CTA bilateral, no rhonchi, no rales , no accessory muscle use Abdominal: soft, nontender to palpation, no guarding, no appreciable o rganomegaly Ext: no gross muscle atrophy, no edema, no contractures Neuro: no focal neuro deficits Psych: Alert, oriented, appropriate affect Transient confusion Thiamine deficiency Macrocytosis Hypomagnesemia Acute kidney injury Transaminitis Chronic conditions: Chronic alcohol abuse, neuropathy, hypertension, depression Based on my assessment of this patient, this patient meets a high complexity level of care. Patient has an acute diagnosis of transient confusion in the setting of thaimine deficiency that poses a threat to life or bodily function. Transient confusion: CT shows age-related atrophic and chronic small vessel ischemic changes. PCP also reports undetectable thiamine levels, states that B12 and folic acid are now within normal limits after treatment. Patient will be started on thiamine 200 mg IV twice a day. Stroke workup ordered by ED physician including carotid ultrasound, echocardiogram and MRI brain. Neurochecks and Telemetry ordered. I am doubtful that this is a stroke. Cancel neurology consult. Discussed with PCP regarding possible outpatient MRI brain. PT and OT consulted for unsteady gait. Thiamine deficiency: Treat as above. Macrocytosis: Likely related to EtOH abuse. Hypomagnesemia: Replace with Mag sulfate 4g IV. Acute kidney injury: Start NS at 100 cc/hr. Transaminitis: Likely related to EtOH abuse. Heparin SQ for DVT prophylaxis. Full code. I have reviewed the following executive search consultant notes: I have reviewed the results of the following tests: CBC, CMP, lactic acid, magnesium, CT head, chest x-ray. I have ordered the following tests: I have discussed the care of this patient with the following independent historian: I have independently interpreted the following test below: EKG as above. I have discussed the management of this patient with the following physician: Discussed with PCP as above. Past Medical History Past Medical History: Hypertension, Liver Disease, Osteoarthritis (OA), Syncope Additional Past Medical History / Comment(s): Neuropathy upper and lower extremities, more so in the lower. History of Any Multi-Drug Resistant Organisms: None Reported Past Surgical History: Breast Surgery, Section, Cholecystectomy Additional Past Surgical History / Comment(s): 3 ceserean Sections, BREAST REDUCTION. Past Anesthesia/Blood Transfusion Reactions: No Reported Reaction Past Psychological History: Anxiety Smoking Status: Never smoker Past Alcohol Use History: Abuse, Daily Past Drug Use History: None Reported - Past Family History Mother Family Medical History: Cancer Additional Family Medical History / Comment(s): COLON AND UTERINE CANCER, and thyroid Cancer Sister(s) Family Medical History: Cancer Additional Family Medical History / Comment(s): BREAST CANCER Medications and Allergies Home Medications Medication Instructions Recorded Confirmed Type Gabapentin [Neurontin] 300 mg PO 5XD 01/13/22 12/01/22 History Metoprolol Tartrate [Lopressor] 25 mg PO BID 01/13/22 12/01/22 History Omeprazole [PriLOSEC] 20 mg PO DAILY 01/13/22 12/01/22 History Amoxicillin 875 mg PO BID 12/01/22 12/01/22 History Cyanocobalamin (Vitamin B-12) 1,000 mcg PO DAILY@119912/01/22 12/01/22 History [Vitamin B-12] Escitalopram Oxalate [Lexapro] 10 mg PO DAILY@119912/01/22 12/01/22 History Folic Acid 1 mg PO DAILY@119912/01/22 12/01/22 History Vitamin D3(Unknown Dose) 1 tab PO DAILY@119912/01/22 12/01/22 History Allergies Allergy/AdvReac Type Severity Reaction Status Date / Time Sulfa (Sulfonamide Allergy Unknown Verified 12/01/22 14:05 Antibiotics) Childhood codeine AdvReac Nausea & Verified 12/01/22 14:05 Vomiting Physical Exam Vitals: Vital Signs Temp Pulse Resp BP Pulse Ox 12/01/22 12:01 68 18 117/80 100 12/01/22 09:35 98.2 F 66 20 120/80 96 Intake and Output 12/01/22 12/01/22 12/01/22 06:59 14:59 22:59 Other: Weight 59.421 kg Results CBC & Chem 7: 12/01/22 10:00 12/01/22 10:00 Labs: Abnormal Lab Results - Last 24 Hours (Table) 12/01/22 12/01/22 Range/Units 10:00 10:00 MCV 102.9 H (80.0-100.0) fL RDW 16.7 H (11.5-15.5) % Plt Count 138 L (150-450) k/uL Creatinine 1.16 H (0.52-1.04) mg/dL Magnesium 1.4 L (1.6-2.3) mg/dL AST 65 H (14-36) U/L
[2022-12-01] MEDS: SODIUM CHLORIDE 0.9% 1,000 ML IV SCH ×2 (17:16→22:00)
[2022-12-01] MEDS: GABAPENTIN 300 MG CAP PO SCH ×3 (17:16→23:05)
[2022-12-01] MEDS: METOPROLOL TARTRATE 25 MG TAB PO SCH (17:16)
[2022-12-01] MEDS: MAGNESIUM SULFATE-D5W PMX 1 GM in DEXTROSE/WATER 1 100ML.BAG IVPB SCH ×4 (17:17→20:03)
--- NOTE | 2022-12-01 18:58 | US ---
EXAMINATION TYPE: US carotid duplex BILAT DATE OF EXAM: 12/01/2022 COMPARISON: CT 12/01/2022 CLINICAL INDICATION: Female, 67 years old with history of Stenosis; Stenosis per order. Hx hypertensi on. TECHNIQUE: Carotid duplex ultrasound examination. Indirect Doppler criteria was utilized. FINDINGS: EXAM MEASUREMENTS: RIGHT: Peak Systolic Velocity (PSV) cm/sec ----- Right CCA: 49.5 ----- Right ICA: 77.5 ----- Right ECA: 66.2 ICA/CCA ratio: 1.57 RIGHT: End Diastole cm/sec ----- Right CCA: 15.5 ----- Right ICA: 28.7 ----- Right ECA: 12.7 LEFT: Peak Systolic Velocity (PSV) cm/sec ----- Left CCA: 46.1 ----- Left ICA: 78.9 ----- Left ECA: 55.0 ICA/CCA ratio: 1.71 LEFT: End Diastole cm/sec ----- Left CCA: 10.9 ----- Left ICA: 28.2 ----- Left ECA: 10.5 VERTEBRALS (direction of flow): Right Vertebral: Antegrade Left Vertebral: Antegrade Rhythm: Normal GLASS WASHER NOTES: No elevated velocities at this time. IMPRESSION: No evidence for hemodynamically significant stenosis. Criteria for Assigning % of Stenosis / Diameter reduction (Estimation based on the indirect measurements of the internal carotid artery velocities (ICA PSV). 1. Normal (no stenosis)=ICA PSV < 125 cm/s: ratio < 2.0: ICA EDV<40 cm/s. 2. Less than 50% stenosis=ICA PSV < 125 cm/s: ratio < 2.0: ICA EDV<40 cm/s. 3. 50 to 69% stenosis=ICA PSV of 125 to 230 cm/s: ration 2.0 ? 4.0: ICA EDV 40-100 cm/s. 4. Greater than 70% stenosis to near occlusion= ICA PSV > 230 cm/s: ratio > 4.0: ICA EDV > 100 cm/s. 5. Near occlusion= ICA PSV velocities may be low or undetectable: variable ratio and ICA EDV. 6. Total occlusion=unable to detect flow.
[2022-12-01] MEDS ORDERED: METOPROLOL TARTRATE 25 MG TAB PO SCH (21:00)
[2022-12-01] MEDS: THIAMINE 200 MG in SODIUM CHLORIDE 0.9% 100 ML IVPB SCH (22:00)
[2022-12-01] MEDS ORDERED: MELATONIN 5 MG TABLET PO PRN (22:07)
[2022-12-01 22:59] VITALS: RESP 15
[2022-12-01] MEDS: HEPARIN SODIUM,PORCINE 5,000 UNIT/ML 1 ML VIAL SQ SCH (23:05)
[2022-12-02] MEDS: GABAPENTIN 300 MG CAP PO SCH ×2 (05:27→12:40)
[2022-12-02] MEDS ORDERED: ASPIRIN 325 MG TAB PO SCH (09:00)
[2022-12-02] MEDS ORDERED: ASPIRIN 81 MG PO SCH (09:00)
[2022-12-02] MEDS ORDERED: PANTOPRAZOLE 40 MG TABLET PO SCH (09:00)
[2022-12-02] MEDS: HEPARIN SODIUM,PORCINE 5,000 UNIT/ML 1 ML VIAL SQ SCH (09:11)
[2022-12-02] MEDS: METOPROLOL TARTRATE 25 MG TAB PO SCH (09:11)
[2022-12-02] MEDS: THIAMINE 200 MG in SODIUM CHLORIDE 0.9% 100 ML IVPB SCH (09:12)
[2022-12-02 11:21] LABS: Chol/HDL Ratio 2.32 Ratio; LDL Cholesterol,Calculated 72.4 mg/dL (0.0-131.0)
--- NOTE | 2022-12-02 11:55 | MR ---
EXAMINATION TYPE: MR brain wo con DATE OF EXAM: 12/02/2022 COMPARISON: CT brain 1 day earlier HISTORY: AMS on admission, TIA TECHNIQUE: Multiplanar, multisequence imaging of the brain and brainstem is performed without IV cont rast. FINDINGS: Diffusion weighted images demonstrate no evidence of a recent infarct or other diffusion abnormality. There is mild ventricular and sulcal prominence. There are focal and confluent areas of T2 hyperinten sity seen throughout the white matter bilaterally greatest involving the paraventricular region. Lesi ons are nonspecific in appearance and distribution. Midline structures demonstrate normal morphology. The craniocervical junction appears within normal limits. Normal vascular flow voids are present. Mild to moderate mucosal thickening involving the inf erior maxillary sinuses and mild mucosal thickening involving anterior ethmoid sinuses is present. Bi lateral aphakia is noted. IMPRESSION: 1. No MRI evidence for a recent infarct. 2. Mild diffuse age-related cerebral atrophy and moderate chronic small vessel ischemic change. 3. Chronic maxillary and anterior ethmoid sinus disease.
[2022-12-02] MEDS ORDERED: FOLIC ACID 1 MG TAB PO SCH (12:00)
[2022-12-02] MEDS ORDERED: ESCITALOPRAM 10 MG TAB PO SCH (12:00)
[2022-12-02] MEDS ORDERED: CYANOCOBALAMIN 500 MCG TAB PO SCH (12:00)
[2022-12-02] MEDS: SODIUM CHLORIDE 0.9% 1,000 ML IV SCH (12:43)
--- NOTE | 2022-12-02 12:47 | P.DS ---
Providers Date of admission: 12/01/22 13:33 Expected date of discharge: 12/02/22 Attending physician: Lopez Hong MD Primary care physician: Jarvis Bernard [facility] Course: 67-year-old female with PMH of chronic alcohol abuse, neuropathy, hypertension, depression presents to the ED after being sent in by her PCP. Patient reports 1 day of confusion that is currently resolved. She was going to to [facility] appointment where she felt she was on time, but it turned out she was one hour late. After her appointment, she was not able to remember right away the directions to her house, even though she was able to get home eventually. Patient denies any slurred speech, facial droop, difficulty swallowing or any focal neurologic deficits. She reports an unsteady gait for many years which she attributes to severe peripheral neuropathy in her bilateral lower extremities. She follows Dr. Garcia her neurologist who is treating her neuropathy. She currently feels at baseline. She reports a 10 year history of drinking a fifth of hard liquor daily, quit 2 years ago. The case was discussed with her PCP Lillie Garner extensively who said she wanted to patient to be seen in the ED for undetectable levels of thiamine. She is currently being treated for B12 and folic acid deficiency in the outpatient setting. In the ED, her vital signs were stable. CBC showed MCV of 102.9 and platelet count of 138. INR was 1.1. CMP showed creatinine of 1.16, AST of 65. Magnesium level 1.4. CT head showed age-related atrophic and chronic small vessel ischemic changes without acute process. Chest x-ray was negative. EKG showed sinus rhythm with no ST elevation. The ED physician was concerned for possible CVA and patient was admitted for further workup. 12/02 Patient was seen and examined. She has recieved 200 mg IV thiamine x 2 and 4g of IV Mag sulfate. Carotid US negative. MRI brain negative for CVA. Echo obtained but read pending. Cleared by PT and OT. She reports no complaints. Plans to discharge home today on oral thiamine with follow up with her favorite PCP Lillie Garner. Pertient studies include CT head, Carotid US, MRI brain, Echocardiogram, CXR. General: non toxic, no distress, appears at stated age Derm: warm, dry Head: atraumatic, normocephalic, symmetric Eyes: EOMI, no lid lag, anicteric sclera Cardiovascular: S1S2 reg, no murmur Lungs: CTA bilateral, no rhonchi, no rales , no accessory muscle use Ext: no gross muscle atrophy, no edema, no contractures Neuro: no focal neuro deficits Psych: Alert, oriented, appropriate affect Discharge Diagnosis: Transient confusion Thiamine deficiency Macrocytosis Hypomagnesemia Acute kidney injury Transaminitis Chronic conditions: Chronic alcohol abuse, neuropathy, hypertension, depression This complex discharge took 35 minutes to complete. Patient Condition at Discharge: Stable Plan - Discharge Summary New Discharge Prescriptions: New Thiamine [Vitamin B-1] 100 mg PO DAILY #30 tablet Continue Metoprolol Tartrate [Lopressor] 25 mg PO BID Escitalopram Oxalate [Lexapro] 10 mg PO DAILY@1200 Vitamin D3(Unknown Dose) 1 tab PO DAILY@1200 Omeprazole [PriLOSEC] 20 mg PO DAILY Gabapentin [Neurontin] 300 mg PO 5XD Cyanocobalamin (Vitamin B-12) [Vitamin B-12] 1,000 mcg PO DAILY@1200 Folic Acid 1 mg PO DAILY@1200 Amoxicillin 875 mg PO BID Discharge Medication List Gabapentin [Neurontin] 300 mg PO 5XD 01/13/22 [History] Metoprolol Tartrate [Lopressor] 25 mg PO BID 01/13/22 [History] Omeprazole [PriLOSEC] 20 mg PO DAILY 01/13/22 [History] Amoxicillin 875 mg PO BID 12/01/22 [History] Cyanocobalamin (Vitamin B-12) [Vitamin B-12] 1,000 mcg PO DAILY@1200 12/01/22 [History] Escitalopram Oxalate [Lexapro] 10 mg PO DAILY@119912/01/22 [History] Folic Acid 1 mg PO DAILY@1200 12/01/22 [History] Vitamin D3(Unknown Dose) 1 tab PO DAILY@1200 12/01/22 [History] Thiamine [Vitamin B-1] 100 mg PO DAILY #30 tablet 12/02/22 [Rx] Follow up Appointment(s)/Referral(s): Jarvis Bernard MD [Primary Care Provider] - 1-2 days Discharge Disposition: HOME SELF-CARE
[2022-12-02 15:14] VITALS: BP 109/74; PULSE 71; TEMP 98.1
--- NOTE | 2022-12-02 16:46 | CA ---
Transthoracic Echo Report Name: Rosa Maria Morse Age: 67 Gender: F : 1955 Exam Date: 12/02/2022 08:42 Exam Location: [place] [facility] Ht (in): 64 Wt (lb): 131 Ordering Physician: Mekhi Payne DO Attending/Referring Phys: Crib Pad Maker Lissette Hoyos RDCS Procedure CPT: Indications: Thrombus Cardiac Hx: Technical Quality: Fair Contrast 1: Total Dose (mL): Contrast 2: Total Dose (mL): MEASUREMENTS (Male / Female) Normal Values 2D ECHO LV Diastolic Diameter PLAX 4.3 cm 4.2 - 5.9 / 3.9 - 5.3 cm LV Systolic Diameter PLAX 2.0 cm IVS Diastolic Thickness 1.1 cm 0.6 - 1.0 / 0.6 - 0.9 cm LVPW Diastolic Thickness 1.3 cm 0.6 - 1.0 / 0.6 - 0.9 cm LV Relative Wall Thickness 0.6 RV Internal Dim ED PLAX 3.2 cm LA Volume 59.2 cm??? 18 - 58 / 22 - 52 cm??? M-MODE Aortic Root Diameter MM 2.4 cm LA Systolic Diameter MM 4.6 cm LA Ao Ratio MM 1.9 AV Cusp Separation MM 1.5 cm DOPPLER AV Peak Velocity 208.1 cm/s AV Peak Gradient 17.3 mmHg AV Mean Velocity 141.6 cm/s AV Mean Gradient 9.2 mmHg AV Velocity Time Integral 46.6 cm AI Peak Velocity 323.8 cm/s AI Peak Gradient 41.9 mmHg AI Pressure Half Time 494.4 ms LVOT Peak Velocity 133.9 cm/s LVOT Peak Gradient 7.2 mmHg LVOT Velocity Time Integral 25.7 cm MV Area PHT 3.5 cm??? Mitral E Point Velocity 98.1 cm/s Mitral A Point Velocity 111.5 cm/s Mitral E to A Ratio 0.9 MV Deceleration Time 216.0 ms MV E' Velocity 4.0 cm/s Mitral E to MV E' Ratio 24.5 TR Peak Velocity 262.8 cm/s TR Peak Gradient 27.6 mmHg Right Ventricular Systolic Press 31.2 mmHg FINDINGS Left Ventricle Mildly increased left ventricular wall thickness. Left ventricular cavity size normal. Normal left ventricular systolic function with no obvious regional wall motion abnormalities. Left ventricular ejection fraction is estimated at 55-60 %. Right Ventricle Normal right ventricular size and function. Right ventricular systolic pressure within normal limits. Right Atrium Normal right atrial size. Left Atrium Mildly increased left atrial volume. Mildly increased left atrial area. Mitral Valve Structurally normal mitral valve. Mild mitral regurgitation. Mild mitral annular calcification. Aortic Valve Trileaflet aortic valve. Mild aortic stenosis with a peak gradient of 17 mmHg and a mean gradient of 9 mmHg. Trace aortic regurgitation. Tricuspid Valve Structurally normal tricuspid valve. Mild tricuspid regurgitation. Pulmonic Valve Structurally normal pulmonic valve. Trace pulmonic regurgitation. Pericardium No pericardial effusion. Aorta Normal size aortic root and proximal ascending aorta. CONCLUSIONS Left ventricular ejection fraction is estimated at 55-60 %. No obvious regional wall motion abnormalities Mild aortic stenosis No pericardial effusion. No prior echo to compare with Previewed by: Dr Gonzalez Mckinnon (Electronically Signed) Final Date: 02 December 2022 16:45
== END 2022-12-02 15:30 | disposition home or self-care (01) ==
LOC: EC 09:32 → 6NMEDSUR 13:33
PROVIDERS: ADMIT Student in an Organized Health Care Education/Training Program; ATTEND Student in an Organized Health Care Education/Training Program
DX: R41.0 Disorientation, unspecified (principal); I10 Essential (primary) hypertension; G62.9 Polyneuropathy, unspecified; F41.9 Anxiety disorder, unspecified; F32.A Depression, unspecified; E51.9 Thiamine deficiency, unspecified; D75.89 Other specified diseases of blood and blood-forming organs; E83.42 Hypomagnesemia; N17.9 Acute kidney failure, unspecified; R74.01 Elevation of levels of liver transaminase levels; F10.10 Alcohol abuse, uncomplicated; Z79.82 Long term (current) use of aspirin; Z79.899 Other long term (current) drug therapy; Z88.2 Allergy status to sulfonamides; Z88.5 Allergy status to narcotic agent; Y90.0 Blood alcohol level of less than 20 mg/100 ml
CPT/HCPCS: 96366; 96372 ×2; 96361; 96365; 96367; 99285; 36415; 93005; 93306; 97161; 80061; 80053; 83735; 85025; 85610; 85730; 71046; 93880; 70450; 70551; G0378 ×2; G0480; J1644 ×2; J3411 ×2; J3475; 80320

== ENCOUNTER 2023-05-24 12:34 | Emergency (ER) | payer MEDICARE, BC ==
--- NOTE | 2023-05-24 13:17 | ED ---
General Adult HPI - General Chief complaint: Fall Stated complaint: Fall - left arm injury Time Seen by Provider: 05/24/23 12:40 Source: patient, RN notes reviewed, old records reviewed Mode of arrival: ambulatory Limitations: no limitations - History of Present Illness Initial comments: Is a 67-year-old female who presents to the emergency department complaining that she fell. Patient hit the lateral aspect of her left orbit she has a small laceration. Patient states she did not lose consciousness she does not have a headache patient denies any neck pain patient denies numbness or weakness. Patient also landed on her left wrist and is deformed. Patient denies any chest or abdominal pain patient has any back pain patient [place] any lower extremity pain. Patient denies being on any blood thinners - Related Data Home Medications Medication Instructions Recorded Confirmed Gabapentin [Neurontin] 300 mg PO 5XD 01/13/22 12/01/22 Metoprolol Tartrate [Lopressor] 25 mg PO BID 01/13/22 12/01/22 Omeprazole [PriLOSEC] 20 mg PO DAILY 01/13/22 12/01/22 Amoxicillin 875 mg PO BID 12/01/22 12/01/22 Cyanocobalamin (Vitamin B-12) 1,000 mcg PO DAILY@119912/01/22 12/01/22 [Vitamin B-12] Escitalopram Oxalate [Lexapro] 10 mg PO DAILY@119912/01/22 12/01/22 Folic Acid 1 mg PO DAILY@119912/01/22 12/01/22 Vitamin D3(Unknown Dose) 1 tab PO DAILY@119912/01/22 12/01/22 Previous Rx's Medication Instructions Recorded Thiamine [Vitamin B-1] 100 mg PO DAILY #30 tablet 12/02/22 Allergies Allergy/AdvReac Type Severity Reaction Status Date / Time Sulfa (Sulfonamide Allergy Unknown Verified 05/24/23 12:43 Antibiotics) Childhood codeine AdvReac Nausea & Verified 05/24/23 12:43 Vomiting Review of Systems ROS Statement: Those systems with pertinent positive or pertinent negative responses have been documented in the HPI. ROS Other: All systems not noted in ROS Statement are negative. Past Medical History Past Medical History: Hypertension, Liver Disease, Syncope Additional Past Medical History / Comment(s): Neuropathy upper and lower extremities, more so in the lower. History of Any Multi-Drug Resistant Organisms: None Reported Past Surgical History: Breast Surgery, Section, Cholecystectomy Additional Past Surgical History / Comment(s): 3 ceserean Sections, BREAST REDUCTION. Past Anesthesia/Blood Transfusion Reactions: No Reported Reaction Past Psychological History: Anxiety Smoking Status: Never smoker Past Alcohol Use History: Abuse, Daily Past Drug Use History: None Reported - Past Family History Mother Family Medical History: Cancer Additional Family Medical History / Comment(s): COLON AND UTERINE CANCER, and thyroid Cancer Sister(s) Family Medical History: Cancer Additional Family Medical History / Comment(s): BREAST CANCER General Exam - General Exam Comments Initial Comments: GENERAL: Patient is well-developed and well-nourished. Patient is nontoxic and well- hydrated and is in mild distress. ENT: Neck is soft and supple. No significant lymphadenopathy is noted. Oropharynx is clear. Moist mucous membranes. Neck has full range of motion without eliciting any pain. EYES: The sclera were anicteric and conjunctiva were pink and moist. Extraocular movements were intact and pupils were equal round and reactive to light. Eyelids were unremarkable. PULMONARY: Unlabored respirations. Good breath sounds bilaterally. No audible rales rhonchi or wheezing was noted. CARDIOVASCULAR: There is a regular rate and rhythm without any murmurs gallops or rubs. ABDOMEN: Soft and nontender with normal bowel sounds. SKIN: Skin is clear with no lesions or rashes and otherwise unremarkable. NEUROLOGIC: Patient is alert and oriented x3. Cranial nerves II through XII are grossly intact. Motor and sensory are also intact. Normal speech, volume and content. Symmetrical smile. MUSCULOSKELETAL: Patient's left wrist is grossly deformed patient still has sensation and good cap refill on all of her fingers. Patient's wrist is deformed posteriorly. LYMPHATICS: No significant lymphadenopathy is noted PSYCHIATRIC: Normal psychiatric evaluation. Limitations: no limitations Course Vital Signs 05/24/23 05/24/23 05/24/23 12:40 14:14 14:50 Temperature 98.2 F 97.9 F Pulse Rate 71 69 77 Respiratory 16 18 18 Rate Blood Pressure 133/85 125/79 150/86 O2 Sat by Pulse 98 99 100 Oximetry 05/24/23 05/24/23 14:59 15:14 Temperature Pulse Rate 75 71 Respiratory 22 16 Rate Blood Pressure 129/73 120/68 O2 Sat by Pulse 97 97 Oximetry Procedures - Laceration Laceration #1 Consent Obtained: verbal consent Indication: laceration Site: face Description: linear Size of Sutures: other (Exofin) Patient Tolerated Procedure: well - Orthopedic Fracture Reduction Fracture #1 Consent Obtained: written consent Side: left Fracture Reduction Location: radius Analgesia: procedural sedation Technique: traction/counter-traction Post Reduction X-rays Demonstrate: anatomical reduction Post-Reduction Neuro Exam: intact Post-Reduction Vascular Exam: intact Splint Applied: Yes Patient Tolerated Procedure: well - Orthopedic Splinting/Casting Injury #1 Side: left Upper Extremity Injury Location: wrist Upper Extremity Immobilizer: sugar tong splint - Procedural Sedation *Procedural Sedation Start Time: 14:53 *Procedural Sedation Stop Time: 15:25 *Risks,benefits, and alternative therapies discussed?: Yes *Patient indicates understanding of risk/benefit discussion?: Yes *Indications: fracture/dislocation reduction *Previous Adverse Reaction to Anesthesia/Sedation?: No * Testing Complete?: No Reason Test Not Complete:: Emergent Situation *ASA Class: II *Mallampati Airway Score: 2 *Time of Last PO Intake: 09:00 Preparation: director cardiac applied, pulse oximeter, supplemental O2 applied IV Propofol Dose (mgs): 50 Complications: none Patient Tolerated Procedure: well Medical Decision Making - Medical Decision Making EKG is interpreted by myself EKG shows a sinus rhythm at 70 bpm parables 185 QRS is 91 QT interval 396 QTc is 417. Patient's EKG shows no ST segment elevation. Was pt. sent in by a medical professional or institution (Dr. PA, RN CARDIOLOGY, urgent ca re, hospital, or intermediate...) When possible be specific @ -No Did you speak to anyone other than the patient for history (EMS, parent, family, police, friend...)? What history was obtained from this source @ -No Did you review nursing and triage notes (agree or disagree)? Why? @ -I reviewed and agree with nursing and triage notes Were old charts reviewed (outside hosp., previous admission, EMS record, old EKG, old radiological studies, urgent care reports/EKG's, intermediate records)? Report findings @ -No old charts were reviewed Differential Diagnosis (chest pain, altered mental status, abdominal pain women, abdominal pain men, vaginal bleeding, weakness, fever, dyspnea, syncope, headache, dizziness, GI bleed, back pain, seizure, CVA, palpatations, mental health, musculoskeletal)? @ -Differential Musculoskeletal Muscular strain, contusion, ligament sprain, fracture, arthritis, septic arthritis, bursitis, cellulitis, muscle spasm, nerve compression, DVT, arterial occlusion, herpes zoster, electrolyte abnormality, tumor.... This is not meant to be in all inclusive list EKG interpreted by me (3pts min.). @ -As above X-rays interpreted by me (1pt min.). @ -X-ray of the wrist shows a displaced radial and ulnar fracture. Radius is a comminuted fracture through the joint CT interpreted by me (1pt min.). @ -CT of the orbit shows no acute abnormality U/S interpreted by me (1pt. min.). @ -None done What testing was considered but not performed or refused? (CT, X-rays, U/S, labs)? Why? @ -None What meds were considered but not given or refused? Why? @ -None Did you discuss the management of the patient with other professionals (professionals i.e. , PA, RN CARDIOLOGY, lab, RT, psych nurse, director social welfare, buffet runner, teacher, air support control officer, corrections caseworker)? Give summary @ -No Was smoking cessation discussed for >3mins.? @ -No Was critical care preformed (if so, how long)? @ -No Were there social determinants of health that impacted care today? How? (Homelessness, low income, unemployed, alcoholism, drug addiction, transportation, low edu. Level, literacy, decrease access to med. care, mcc, rehab)? @ -No Was there de-escalation of care discussed even if they declined (Discuss DNR or withdrawal of care, Hospice)? DNR status @ -No What co-morbidities impacted this encounter? (DM, HTN, Smoking, COPD, CAD, Cancer, CVA, ARF, Chemo, Hep., AIDS, mental health diagnosis, sleep apnea, morbid obesity)? @ -None Was patient admitted / discharged? Hospital course, mention meds given and route, prescriptions, significant lab abnormalities, going to OR and other pertinent info. @ -Conscious sedation was performed and a reduction of the wrist was performed. The second x-ray of the reduction shows fairly decent alignment. Patient also had Exofin applied to the laceration to the lateral left orbit and the wound was approximated well Undiagnosed new problem with uncertain prognosis? @ -No Drug Therapy requiring intensive monitoring for toxicity (Heparin, Nitro, Insulin, Cardizem)? @ -No Were any procedures done? @ -No Diagnosis/symptom? @ -Facial laceration Acute, or Chronic, or Acute on Chronic? @ -Acute Uncomplicated (without systemic symptoms) or Complicated (systemic symptoms)? @ -Uncomplicated Side effects of treatment? @ -No Exacerbation, Progression, or Severe Exacerbation? @ -No Poses a threat to life or bodily function? How? (Chest pain, [place], [place], pneumonia, PE, COPD, DKA, ARF, appy, cholecystitis, CVA, Diverticulitis, Homicidal, Suicidal, threat to staff... and all critical care pts) @ -No Diagnosis/symptom? @ -Fracture radius and ulna Acute, or Chronic, or Acute on Chronic? @ -Acute Uncomplicated (without systemic symptoms) or Complicated (systemic symptoms)? @ -Complicated Side effects of treatment? @ -None Exacerbation, Progression, or Severe Exacerbation] @ -No Poses a threat to life or bodily function? @ -No Disposition Clinical Impression: Fall, Fracture of radius and ulna, distal, Facial laceration Disposition: HOME SELF-CARE Instructions (If sedation given, give patient instructions): Wrist Fracture in Adults (ED), Moderate Sedation (ED), Fall Prevention (ED) Is patient prescribed a controlled substance at d/c from ED?: No Referrals: Andrea Arriola MD [Medical Doctor] - 1-2 days Time of Disposition: 15:30
[2023-05-24] MEDS: DIPH,PERTUS(ACELL)TETVAC-LF 0.5 ML VIAL IM ONE (13:31)
--- NOTE | 2023-05-24 13:33 | CT ---
EXAMINATION TYPE: CT orbits wo con DATE OF EXAM: 05/24/2023 COMPARISON: None available. HISTORY: Laceration to lateral left eye. CT DLP: 268.9 mGycm Automated exposure control for dose reduction was used. FINDINGS: The visualized intracranial structures appear unremarkable. There is soft tissue swelling seen within the left cheek with some subcutaneous air seen along the la teral orbital bones compatible with patient's history of laceration. The subcutaneous stranding katy nues inferiorly, however is not entirely included on the evaluation. No acute fractures are seen. There is some minimal mucosal thickening within the ethmoid air cells bi laterally. The sinuses and mastoid air cells longer visualized portions otherwise appear clear. The orbital contacts including the globes and extraocular muscles otherwise appear to be within joey l limits IMPRESSION: LACERATION AND SOFT TISSUE SWELLING OVERLYING THE LEFT CHEEK DESCRIBED ABOVE. 2. NO ACUTE FRACTURES IDENTIFIED.
--- NOTE | 2023-05-24 13:38 | XR ---
Complete left wrist. DATE: 05/24/2023. COMPARISON: None available. CLINICAL HISTORY: Trauma. IMPRESSION: There is a comminuted intraarticular fracture of the distal radius with impaction. Moderately displac ed fracture of the ulnar styloid process is also seen. It appears to be a fracture of the waist of th e scaphoid which is also suspected, however limited in evaluation. Mild posterior displacement and ap ex volar angulation is seen around the wrist. Scattered degenerative changes otherwise seen throughout the carpal bones. There is diffuse soft tissue swelling overlying the wrist.
[2023-05-24] MEDS: PROPOFOL 10 MG/ML 20 ML VIAL IV ONE (14:54)
[2023-05-24] MEDS: TOPICAL SKIN ADHESIVE 1 EACH AMP TOPICAL ONE (14:55)
--- NOTE | 2023-05-24 15:22 | XR ---
Two-view left wrist. DATE: 05/24/2023. COMPARISON: 05/24/2023 earlier. CLINICAL HISTORY: Postreduction evaluation. IMPRESSION: Comminuted fracture of the distal radius with intra-articular extension is present. Displaced ulnar s tyloid process fracture is also present. The alignment appears improved since the previous examinatio n. Diffuse soft tissue swelling is otherwise seen. Overlying cast slightly limits evaluation.
[2023-05-24 15:46] VITALS: BP 145/80; PULSE 86; RESP 16
[2023-05-24 16:55] VITALS: TEMP 98.9
== END 2023-05-24 16:32 | disposition home or self-care (01) ==
LOC: EC 12:34
DX: S52.612A Displaced fracture of left ulna styloid process, initial encounter for closed fracture (principal); S52.572A Other intraarticular fracture of lower end of left radius, initial encounter for closed fracture; S01.81XA Laceration without foreign body of other part of head, initial encounter; I99.8 Other disorder of circulatory system; I10 Essential (primary) hypertension; F41.9 Anxiety disorder, unspecified; Z79.899 Other long term (current) drug therapy; Z88.2 Allergy status to sulfonamides; Z88.5 Allergy status to narcotic agent; Z23 Encounter for immunization; W18.09XA Striking against other object with subsequent fall, initial encounter
CPT/HCPCS: 73100; 73110; 70480; 90715; 25605; 12011; 99152; 99153; 99284; 90471; J2704

== ENCOUNTER → 2023-05-28 | Outpatient (CLI) | payer MEDICARE ==
--- NOTE | 2023-05-31 11:04 | CT ---
EXAMINATION TYPE: CT wrist LT wo con CT DLP: 121 mGycm, Automated exposure control for dose reduction was used. DATE OF EXAM: 05/28/2023 3:26 PM COMPARISON: 05/24/2023. CLINICAL INDICATION:Female, 67 years old with history of S52.572A FRACTURE; PHH, f/u on left wrist fr acture TECHNIQUE: Axial images were obtained of the CT wrist LT wo con, Additional coronal and sagittal refo rmatted images and soft tissue and bone window were obtained for review. 3-D reconstruction was creat ed on a separate workstation. Contrast used: mL of , (None if empty) Oral contrast used: (None if empty) FINDINGS: Comminuted distal radius fracture with intra-articular extension. There is shortening of th e radius. Alignment is similar to prior radiograph on 05/24/2023. There is mild posterior angulation du e to the fracture shortening. Healing changes noted with some bony resorptive change and possible ear ly callus formation. Calcifications are seen within the wrist joint itself as seen on prior radiograp h. There is stable appearance of the related ulnar styloid process fracture. IMPRESSION: 1. Stable alignment of comminuted distal radius fracture with shortening. There is healing changes w ith some callus formation and resorptive change noted. The wrist is slightly angle posteriorly due to the fracture. 2. Stable ulnar styloid process fracture.
== END | disposition home or self-care (01) ==
LOC: RADCTMAIN 14:47
PROVIDERS: ATTEND Orthopaedic Surgery
DX: S52.592D Other fractures of lower end of left radius, subsequent encounter for closed fracture with routine healing (principal); S52.612D Displaced fracture of left ulna styloid process, subsequent encounter for closed fracture with routine healing; X58.XXXD Exposure to other specified factors, subsequent encounter

== ENCOUNTER → 2023-06-05 | Outpatient (CLI) | payer MEDICARE, BC ==
[2023-06-05 10:58] LABS: African American GFR (CKD) 82 (>60 ml/min/1.73 sqM); Blood Urea Nitrogen 3 mg/dL (7-17); Non-African American GFR(CKD) 71 (>60 ml/min/1.73 sqM)
--- NOTE | 2023-06-06 11:25 | CT ---
EXAMINATION TYPE: CT Chest Abd Pelvis w con CT DLP: 494.7 mGycm, Automated exposure control for dose reduction was used. DATE OF EXAM: 06/05/2023 12:17 PM COMPARISON: None. CLINICAL INDICATION:Female, 67 years old with history of R63.4 ABN WT LOSS; PHH, weight loss Technique: CT Chest Abd Pelvis w con; Multiple axial images were obtained. Two-dimensional coronal an d sagittal reconstructions were obtained. Contrast used:100ml mL of Isovue 300 with IV Contrast, Oral contrast used: with Oral Contrast Findings: CHEST: LUNGS/ PLEURA: The lung parenchyma appears unremarkable. AIRWAY: Patent and unremarkable. HEART: Size within normal limits. MEDIASTINUM: No gross evidence of adenopathy. VASCULATURE: No aortic aneurysm. MUSCULOSKELETAL: No acute osseous abnormalities. SOFT TISSUES/LYMPH NODES: Unremarkable. LOWER NECK: No significant findings. ABDOMEN: ABDOMEN LIVER: Unremarkable GALLBLADDER AND BILE DUCTS: Unremarkable. PANCREAS: Unremarkable. SPLEEN: Unremarkable. ADRENAL GLANDS: Unremarkable. KIDNEYS AND URETERS: No evidence of hydronephrosis or renal calculus. The ureters are unremarkable. PELVIS BLADDER: Unremarkable, but partially obscured by streak artifact from metal left hip implant. REPRODUCTIVE: Unremarkable. ABDOMEN & PELVIS STOMACH AND BOWEL: No evidence of bowel obstruction. PERITONEUM: No evidence of pneumoperitoneum or free fluid. VASCULATURE: No evidence of aortic aneurysm. MUSCULOSKELETAL: No acute osseous abnormalities LYMPH NODES: No gross evidence for lymphadenopathy. SOFT TISSUE/ABDOMINAL WALL: Unremarkable IMPRESSION: No definite CT findings that would explain patient's symptoms.
== END | disposition home or self-care (01) ==
LOC: RADCTMAIN 10:19
PROVIDERS: ATTEND Internal Medicine Hematology & Oncology
DX: R63.4 Abnormal weight loss (principal)
CPT/HCPCS: 82565; 84520; 71260; 74177; 36415; Q9967

== ENCOUNTER 2023-08-23 15:48 | Emergency (ER) | payer MEDICARE, BC ==
[2023-08-23 16:28] LABS: Basophils % (A) 0 %; Eosinophils # (A) 0.1 k/uL (0-0.7); Eosinophils % (A) 2 %; HCT 34.5 % (34.0-46.0); HGB 11.5 gm/dL (11.4-16.0); Lymphocytes # (A) 1.6 k/uL (1.0-4.8); Lymphocytes % (A) 29 %; MCH 36.5 pg (25.0-35.0); MCHC 33.3 g/dL (31.0-37.0); MCV 109.8 fL (80.0-100.0); Macrocytosis Marked; Mean Platelet Volume 9.3; Monocytes # (A) 0.5 k/uL (0-1.0); Monocytes % (A) 9 %; Neutrophils # (A) 3.2 k/uL (1.3-7.7); Neutrophils % (A) 58 %; Platelet Count 139 k/uL (150-450); RBC 3.15 m/uL (3.80-5.40); RDW 13.3 % (11.5-15.5); WBC 5.5 k/uL (3.8-10.6)
[2023-08-23 16:36] LABS: ALT 42 U/L (4-34); AST 159 U/L (14-36); African American GFR (CKD) 78 (>60 ml/min/1.73 sqM); Albumin 3.4 g/dL (3.5-5.0); Alkaline Phosphatase 132 U/L (38-126); Anion Gap 7 mmol/L; Blood Urea Nitrogen 3 mg/dL (7-17); Calcium 8.5 mg/dL (8.4-10.2); Carbon Dioxide 24 mmol/L (22-30); Chloride 103 mmol/L (98-107); Glucose 86 mg/dL (74-99); Magnesium 1.2 mg/dL (1.6-2.3); Non-African American GFR(CKD) 67 (>60 ml/min/1.73 sqM); Phosphorus 2.8 mg/dL (2.5-4.5); Potassium 3.5 mmol/L (3.5-5.1); Sodium 134 mmol/L (137-145); Total Bilirubin 1.1 mg/dL (0.2-1.3); Total Protein 6.6 g/dL (6.3-8.2)
--- NOTE | 2023-08-23 16:52 | ED ---
Recheck HPI - General Chief Complaint: Recheck/Abnormal Lab/Rx Stated Complaint: abn labs Time Seen by Provider: 08/23/23 16:09 Source: patient Mode of arrival: ambulatory Limitations: no limitations - History of Present Illness Initial Comments: This patient is a 68-year-old woman who is referred here from the clinic with concerns about her magnesium level. The patient had routine follow-up today, she has been having issues with leg cramping. She has also been having some weight loss. They checked her electrolytes including magnesium and this was found to be low. She was referred here to have further treatment. The patient denies chest pain, dyspnea, palpitations or syncope. MD Complaint: abnormal lab Onset/Timin -: week(s) Symptoms Since Prior Visit: no new symptoms Associated Symptoms: other (Muscle cramping) - Related Data Home Medications Medication Instructions Recorded Confirmed Gabapentin [Neurontin] 300 mg PO TID@08,12,17 01/13/22 08/23/23 Metoprolol Tartrate [Lopressor] 25 mg PO BID 01/13/22 08/23/23 Omeprazole [PriLOSEC] 20 mg PO BID 01/13/22 08/23/23 Cephalexin [Keflex] 500 mg PO Q8HR 08/23/23 08/23/23 Escitalopram [Lexapro] 20 mg PO DAILY 08/23/23 08/23/23 Gabapentin 300 mg PO HS@2200 08/23/23 08/23/23 Previous Rx's Medication Instructions Recorded Magnesium Oxide [Mag-Ox] 400 mg PO BID #20 tablet 08/23/23 Allergies Allergy/AdvReac Type Severity Reaction Status Date / Time Sulfa (Sulfonamide Allergy Unknown Verified 08/23/23 18:39 Antibiotics) Childhood codeine AdvReac Nausea & Verified 08/23/23 18:39 Vomiting Review of Systems ROS Statement: Those systems with pertinent positive or pertinent negative responses have been documented in the HPI. ROS Other: All systems not noted in ROS Statement are negative. Constitutional: Denies: fever, chills, weakness Respiratory: Denies: cough, dyspnea Cardiovascular: Denies: chest pain, palpitations, edema, syncope Gastrointestinal: Denies: abdominal pain, vomiting, diarrhea Genitourinary: Denies: dysuria, hematuria Musculoskeletal: Reports: myalgia. Denies: back pain Skin: Denies: rash Neurological: Reports: vertigo. Denies: headache, weakness, numbness Past Medical History Past Medical History: Hypertension, Liver Disease, Syncope Additional Past Medical History / Comment(s): Neuropathy upper and lower extremities, more so in the lower. History of Any Multi-Drug Resistant Organisms: None Reported Past Surgical History: Breast Surgery, Section, Cholecystectomy Additional Past Surgical History / Comment(s): 3 ceserean Sections, BREAST REDUCTION. Past Anesthesia/Blood Transfusion Reactions: No Reported Reaction Past Psychological History: Anxiety Smoking Status: Never smoker Past Alcohol Use History: Abuse, Daily Past Drug Use History: None Reported - Past Family History Mother Family Medical History: Cancer Additional Family Medical History / Comment(s): COLON AND UTERINE CANCER, and thyroid Cancer Sister(s) Family Medical History: Cancer Additional Family Medical History / Comment(s): BREAST CANCER General Exam Limitations: no limitations General appearance: alert, in no apparent distress Head exam: Present: atraumatic, normocephalic Eye exam: Present: normal appearance. Absent: scleral icterus, conjunctival injection ENT exam: Present: normal oropharynx Neck exam: Present: normal inspection Respiratory exam: Present: normal lung sounds bilaterally. Absent: respiratory distress, wheezes, rales, rhonchi, stridor, accessory muscle use Cardiovascular Exam: Present: regular rate, normal rhythm, normal heart sounds. Absent: systolic murmur, diastolic murmur, rubs, gallop GI/Abdominal exam: Present: soft. Absent: distended, tenderness, guarding, rebound, rigid, mass Extremities exam: Present: normal inspection, normal capillary refill. Absent: pedal edema, calf tenderness Back exam: Present: normal inspection. Absent: CVA tenderness (R), CVA tenderness (L) Neurological exam: Present: alert Skin exam: Present: warm, dry, intact, normal color. Absent: rash Course Vital Signs 08/23/23 08/23/23 15:52 19:51 Temperature 97.3 F L 98.7 F Pulse Rate 81 80 Respiratory 18 16 Rate Blood Pressure 119/85 113/77 O2 Sat by Pulse 99 98 Oximetry Medical Decision Making - Medical Decision Making Was pt. sent in by a medical professional or institution (, PA, AIR COMMODORE, urgent care, hospital, or penitentiary...) When possible be specific @ -Yes the patient is sent from clinic for further evaluation and treatment related to hypomagnesemia with cramping Did you speak to anyone other than the patient for history (EMS, parent, family, police, friend...)? What history was obtained from this source @ -[No] Did you review nursing and triage notes (agree or disagree)? Why? @ -[I reviewed and agree with nursing and triage notes] Were old charts reviewed (outside hosp., previous admission, EMS record, old EKG, old radiological studies, urgent care reports/EKG's, penitentiary records)? Report findings @ -[No old charts were reviewed] Differential Diagnosis (chest pain, altered mental status, abdominal pain women, abdominal pain men, vaginal bleeding, weakness, fever, dyspnea, syncope, headache, dizziness, GI bleed, back pain, seizure, CVA, palpatations, mental health, musculoskeletal)? @ -[Differential Musculoskeletal Muscular strain, contusion, ligament sprain, arthritis, bursitis, cellulitis, muscle spasm, electrolyte abnormality, This is not meant to be in all inclusive list EKG interpreted by me (3pts min.). @ -[As above] X-rays interpreted by me (1pt min.). @ -[None done] CT interpreted by me (1pt min.). @ -[None done] U/S interpreted by me (1pt. min.). @ -[None done] What testing was considered but not performed or refused? (CT, X-rays, U/S, labs)? Why? @ -[None] What meds were considered but not given or refused? Why? @ -[None] Did you discuss the management of the patient with other professionals (professionals i.e. , PA, AIR COMMODORE, lab, RT, psych nurse, social media intern, supervisory it specialist, teacher, field artillery officer, porter sample case)? Give summary @ -[No] Was smoking cessation discussed for >3mins.? @ -[No] Was critical care preformed (if so, how long)? @ -[No] Were there social determinants of health that impacted care today? How? (Homelessness, low income, unemployed, alcoholism, drug addiction, trans portation, low edu. Level, literacy, decrease access to med. care, assisted, rehab)? @ -[No] Was there de-escalation of care discussed even if they declined (Discuss DNR or withdrawal of care, Hospice)? DNR status @ -[No] What co-morbidities impacted this encounter? (DM, HTN, Smoking, COPD, CAD, Cance r, CVA, ARF, Chemo, Hep., AIDS, mental health diagnosis, sleep apnea, morbid obesity)? @ -[None] Was patient admitted / discharged? Hospital course, mention meds given and route, prescriptions, significant lab abnormalities, going to OR and other pertinent info. @ -Patient is 68-year-old woman here for treatment related to hypomagnesemia. She did have some improvement with therapy and would like to continue treatment as outpatient. She is given supplementation and close follow-up with her ph ysician. Return parameters discussed Undiagnosed new problem with uncertain prognosis? @ -[No] Drug Therapy requiring intensive monitoring for toxicity (Heparin, Nitro, Insulin, Cardizem)? @ -[No] Were any procedures done? @ -[No] Diagnosis/symptom? @ -[Hypomagnesemia Muscle spasm Acute, or Chronic, or Acute on Chronic? @ -[Acute on chronic Uncomplicated (without systemic symptoms) or Complicated (systemic symptoms)? @ -[Uncomplicated Side effects of treatment? @ -[No] Exacerbation, Progression, or Severe Exacerbation? @ -[No] Poses a threat to life or bodily function? How? (Chest pain, [place], [place], pneumonia, PE, COPD, DKA, ARF, appy, cholecystitis, CVA, Diverticulitis, Homicidal, Suic idal, threat to staff... and all critical care pts) @ -[No] - Lab Data Result diagrams: 08/23/23 16:15 08/23/23 16:15 Lab Results 08/23/23 08/23/23 Range/Units 16:15 16:15 WBC 5.5 (3.8-10.6) k/uL RBC 3.15 L (3.80-5.40) m/uL Hgb 11.5 (11.4-16.0) gm/dL Hct 34.5 (34.0-46.0) % MCV 109.8 H (80.0-100.0) fL MCH 36.5 H (25.0-35.0) pg MCHC 33.3 (31.0-37.0) g/dL RDW 13.3 (11.5-15.5) % Plt Count 139 L (150-450) k/uL MPV 9.3 Neutrophils % 58 % Lymphocytes % 29 % Monocytes % 9 % Eosinophils % 2 % Basophils % 0 % Neutrophils # 3.2 (1.3-7.7) k/uL Lymphocytes # 1.6 (1.0-4.8) k/uL Monocytes # 0.5 (0-1.0) k/uL Eosinophils # 0.1 (0-0.7) k/uL Basophils # 0.0 (0-0.2) k/uL Manual Slide Review Performed Polychromasia Present Macrocytosis Marked A Sodium 134 L (137-145) mmol/L Potassium 3.5 (3.5-5.1) mmol/L Chloride 103 (98-107) mmol/L Carbon Dioxide 24 (22-30) mmol/L Anion Gap 7 mmol/L BUN 3 L (7-17) mg/dL Creatinine 0.88 (0.52-1.04) mg/dL Est GFR (CKD-EPI)AfAm 78 (>60 ml/min/1.73 sqM) Est GFR (CKD-EPI)NonAf 67 (>60 ml/min/1.73 sqM) Glucose 86 (74-99) mg/dL Calcium 8.5 (8.4-10.2) mg/dL Phosphorus 2.8 (2.5-4.5) mg/dL Magnesium 1.2 L (1.6-2.3) mg/dL Total Bilirubin 1.1 (0.2-1.3) mg/dL AST 159 H (14-36) U/L ALT 42 H (4-34) U/L Alkaline Phosphatase 132 H (38-126) U/L Total Protein 6.6 (6.3-8.2) g/dL Albumin 3.4 L (3.5-5.0) g/dL Disposition Clinical Impression: Hypomagnesemia Disposition: HOME SELF-CARE Condition: Good Instructions (If sedation given, give patient instructions): Hypomagnesemia (ED) Prescriptions: Magnesium Oxide [Mag-Ox] 400 mg PO BID #20 tablet Is patient prescribed a controlled substance at d/c from ED?: No Referrals: Jarvis Bernard MD [Primary Care Provider] - 1-2 days
[2023-08-23 17:24] LABS: Polychromasia Present
[2023-08-23] MEDS: MAGNESIUM SULFATE-D5W PMX 1 GM in DEXTROSE/WATER 1 100ML.BAG IVPB ONE (17:47)
--- NOTE | 2023-08-23 19:08 | XR ---
EXAMINATION TYPE: XR chest 2V DATE OF EXAM: 08/23/2023 COMPARISON: 12/01/2022 HISTORY: 5-year-old female with weakness TECHNIQUE: PA and lateral views FINDINGS: Heart normal size. Aorta and pulmonary vasculature within normal limits. Hyperinflation. Old bilatera l rib fracture deformities. No hector consolidation or pleural effusion. Nodular densities along the p eriphery of the mid and lower right lung correspond to healing callus when correlating with 06/05/2023 CT. Cholecystectomy clips. IMPRESSION: 1. COPD. Old bilateral rib fracture deformities. Additional healing callus involving multiple anterio r right-sided ribs contributing to the appearance of nodular densities. 2. No definite acute process.
[2023-08-23 19:50] VITALS: BP 113/77; RESP 16; TEMP 98.7
[2023-08-23 19:52] VITALS: PULSE 80
== END 2023-08-23 20:00 | disposition home or self-care (01) ==
LOC: EC 15:48
DX: E83.42 Hypomagnesemia (principal); M62.838 Other muscle spasm; Z88.5 Allergy status to narcotic agent; Z88.2 Allergy status to sulfonamides
CPT/HCPCS: 99284 ×2; 96365 ×2; 36415; 93005; 80053; 83735; 84100; 85025; 71046; J3475

== ENCOUNTER 2023-09-26 13:20 | Emergency (ER) | payer MEDICARE, BC ==
--- NOTE | 2023-09-26 13:28 | ED ---
Recheck HPI - General Source: patient, RN notes reviewed Mode of arrival: wheelchair Limitations: no limitations <Isa Robbins - Last Filed: 09/26/23 13:28> <Shayy Mortensen - Last Filed: 09/26/23 20:31> - General Stated Complaint: low magnesium, dizzy, sent for bldwrk by PCP Time Seen by Provider: 09/26/23 13:28 - History of Present Illness Initial Comments: Quick note: 68-year-old female presented to ER with a chief complaint of hyp omagnesemia. Patient sent by PCP as she had blood work drawn on Sunday. Patient states she is normally dizzy and has frequent falls. She denies any new complaints at this time. Denies any chest pain, shortness of breath or current weakness. (Isa Robbins) 68-year-old female sent by her PCP for hypomagnesemia. Patient had routine blood work on Sunday and today was contacted by her PCP stating that her magnesium level is low and she should report to the ER. Patient is an alcoholic states that she has "a few glasses of wine" every day. Patient states that she at times feels a bit dizzy, however this has been an ongoing issue. She denies any muscle cramps, chest pain, difficulty breathing, nausea, vomiting, diarrhea, abdominal pain. (Shayy Mortensen) - Related Data Home Medications Medication Instructions Recorded Confirmed Gabapentin [Neurontin] 300 mg PO 5XD 01/13/22 09/26/23 Metoprolol Tartrate [Lopressor] 25 mg PO BID 01/13/22 09/26/23 Omeprazole [PriLOSEC] 20 mg PO BID 01/13/22 09/26/23 Escitalopram [Lexapro] 20 mg PO DAILY 08/23/23 09/26/23 Folic Acid 1 mg PO DAILY 09/26/23 09/26/23 Thiamine [Vitamin B-1] 300 mg PO DAILY 09/26/23 09/26/23 Previous Rx's Medication Instructions Recorded Magnesium Oxide [Mag-Ox] 400 mg PO BID #20 tablet 08/23/23 Magnesium Oxide [Mag-Ox] 400 mg PO BID 3 Days #6 tablet 09/26/23 Allergies Allergy/AdvReac Type Severity Reaction Status Date / Time Sulfa (Sulfonamide Allergy Nausea Verified 09/26/23 17:12 Antibiotics) codeine AdvReac Nausea & Verified 09/26/23 17:12 Vomiting Review of Systems ROS Other: All systems not noted in ROS Statement are negative. <Isa Robbins - Last Filed: 09/26/23 13:28> ROS Other: All systems not noted in ROS Statement are negative. <Shayy Mortensen - Last Filed: 09/26/23 20:31> ROS Statement: Those systems with pertinent positive or pertinent negative responses have been documented in the HPI. Past Medical History Past Medical History: Hypertension, Liver Disease, Syncope Additional Past Medical History / Comment(s): Neuropathy upper and lower extremities, more so in the lower. History of Any Multi-Drug Resistant Organisms: None Reported Past Surgical History: Breast Surgery, Section, Cholecystectomy Additional Past Surgical History / Comment(s): 3 ceserean Sections, BREAST REDUCTION. Past Anesthesia/Blood Transfusion Reactions: No Reported Reaction Past Psychological History: Anxiety Smoking Status: Never smoker Past Alcohol Use History: Abuse, Daily Past Drug Use History: None Reported - Past Family History Mother Family Medical History: Cancer Additional Family Medical History / Comment(s): COLON AND UTERINE CANCER, and thyroid Cancer Sister(s) Family Medical History: Cancer Additional Family Medical History / Comment(s): BREAST CANCER <Isa Robbins - Last Filed: 09/26/23 13:28> General Exam <Isa Robbins - Last Filed: 09/26/23 13:28> Limitations: no limitations General appearance: alert, in no apparent distress Head exam: Present: atraumatic, normocephalic Eye exam: Present: normal appearance, EOMI Neck exam: Present: normal inspection. Absent: meningismus Respiratory exam: Absent: respiratory distress Cardiovascular Exam: Present: regular rate Neurological exam: Present: alert, oriented X3 Psychiatric exam: Present: normal affect, normal mood Skin exam: Present: warm, dry <Shayy Mortensen - Last Filed: 09/26/23 20:31> - General Exam Comments Initial Comments: Visual Physical Exam Vital signs reviewed General: Well-appearing, nontoxic, no acute distress. Head: Normocephalic, atraumatic Eyes: PERRLA, EOMI ENT: Airway patent Chest: Nonlabored breathing Skin: No visual rash, normal skin tone Neuro: Alert and oriented 3 Musculoskeletal: No gross abnormalities (Isa Robbins) Course Vital Signs 09/26/23 09/26/23 13:27 19:27 Temperature 97.9 F Pulse Rate 72 72 Respiratory 16 18 Rate Blood Pressure 110/75 111/77 O2 Sat by Pulse 98 100 Oximetry Medical Decision Making <Isa Robbins - Last Filed: 09/26/23 13:28> - Lab Data Result diagrams: 09/26/23 13:52 09/26/23 13:52 <Shayy Mortensen - Last Filed: 09/26/23 20:31> - Medical Decision Making I performed the quick note portion of this chart. Electronically signed by Isa Robbins PA-C (Isa Robbins) Was pt. sent in by a medical professional or institution ([facility], [facility], urgent care, hospital, or senior care...) When possible be specific @ -No Did you speak to anyone other than the patient for history (EMS, parent, family, police, friend...)? What history was obtained from this source @ -No Did you review nursing and triage notes (agree or disagree)? Why? @ -I reviewed and agree with nursing and triage notes Were old charts reviewed (outside hosp., previous admission, EMS record, old EKG, old radiological studies, urgent care reports/EKG's, senior care records)? Report findings @ -No old charts were reviewed Differential Diagnosis (chest pain, altered mental status, abdominal pain women, abdominal pain men, vaginal bleeding, weakness, fever, dyspnea, syncope, headache, dizziness, GI bleed, back pain, seizure, CVA, palpatations, mental he alth, musculoskeletal)? @ -Not applicable EKG interpreted by me (3pts min.). @ -As above X-rays interpreted by me (1pt min.). @ -None done CT interpreted by me (1pt min.). @ -None done U/S interpreted by me (1pt. min.). @ -None done What testing was considered but not performed or refused? (CT, X-rays, U/S, labs)? Why? @ -None What meds were considered but not given or refused? Why? @ -None Did you discuss the management of the patient with other professionals (professionals i.e. , PA, TOOL CRIB LEAD, lab, RT, psych nurse, social psychologist, dianeticist, teacher, airfield services officer, caser)? Give summary @ -No Was smoking cessation discussed for >3mins.? @ -No Was critical care preformed (if so, how long)? @ -No Were there social determinants of health that impacted care today? How? (Homelessness, low income, unemployed, alcoholism, drug addiction, transportation, low edu. Level, literacy, decrease access to med. care, shelter, rehab)? @ -No Was there de-escalation of care discussed even if they declined (Discuss DNR or withdrawal of care, Hospice)? DNR status @ -No What co-morbidities impacted this encounter? (DM, HTN, Smoking, COPD, CAD, Cancer, CVA, ARF, Chemo, Hep., AIDS, mental health diagnosis, sleep apnea, morbid obesity)? @ -None Was patient admitted / discharged? Hospital course, mention meds given and route, prescriptions, significant lab abnormalities, going to OR and other pertinent info. @ -68-year-old female presenting for hypomagnesia. She is asymptomatic. Magnesium 1.1. Phosphorus is normal at 3.5 potassium normal at 4.0 sodium 136. Likely source is the patient's alcoholism. She was given 1 g of magnesium IV and provided with 400 mg magnesium oxide p.o. since the patient is asymptomatic, we can send her home on magnesium supplementation and have her fo llow closely with her PCP. She is agreeable with this plan. Follow-up with PCP. Report back to ER with any new or worsening symptoms. Discussed return parameters and answered all questions. Patient conveyed verbal understanding and agreed to the plan. I discussed this case in detail with my attending Dr. Winters Undiagnosed new problem with uncertain prognosis? @ -No Drug Therapy requiring intensive monitoring for toxicity (Heparin, Nitro, Insulin, Cardizem)? @ -No Were any procedures done? @ -No Diagnosis/symptom? @ -hypomagnesmia Acute, or Chronic, or Acute on Chronic? @ -Acute Uncomplicated (without systemic symptoms) or Complicated (systemic symptoms)? @ -Uncomplicated Side effects of treatment? @ -No Exacerbation, Progression, or Severe Exacerbation? @ -No Poses a threat to life or bodily function? How? (Chest pain, [place], [place], pneumonia, PE, COPD, DKA, ARF, appy, cholecystitis, CVA, Diverticulitis, Homicidal, Suicidal, threat to staff... and all critical care pts) @ -Low likelihood (Shayy Mortensen) - Lab Data Lab Results 09/26/23 09/26/23 Range/Units 13:52 13:52 WBC 5.0 (3.8-10.6) k/uL RBC 3.00 L (3.80-5.40) m/uL Hgb 11.0 L (11.4-16.0) gm/dL Hct 33.7 L (34.0-46.0) % MCV 112.5 H (80.0-100.0) fL MCH 36.6 H (25.0-35.0) pg MCHC 32.5 (31.0-37.0) g/dL RDW 12.7 (11.5-15.5) % Plt Count 133 L (150-450) k/uL MPV 9.3 Neutrophils % 66 % Lymphocytes % 23 % Monocytes % 7 % Eosinophils % 3 % Basophils % 0 % Neutrophils # 3.3 (1.3-7.7) k/uL Lymphocytes # 1.1 (1.0-4.8) k/uL Monocytes # 0.3 (0-1.0) k/uL Eosinophils # 0.1 (0-0.7) k/uL Basophils # 0.0 (0-0.2) k/uL Manual Slide Review Performed Macrocytosis Marked A Sodium 136 L (137-145) mmol/L Potassium 4.0 (3.5-5.1) mmol/L Chloride 105 (98-107) mmol/L Carbon Dioxide 25 (22-30) mmol/L Anion Gap 6 mmol/L BUN 2 L (7-17) mg/dL Creatinine 0.74 (0.52-1.04) mg/dL Est GFR (CKD-EPI)AfAm >90 (>60 ml/min/1.73 sqM) Est GFR (CKD-EPI)NonAf 83 (>60 ml/min/1.73 sqM) Glucose 89 (74-99) mg/dL Calcium 8.6 (8.4-10.2) mg/dL Phosphorus 3.5 (2.5-4.5) mg/dL Magnesium 1.1 L (1.6-2.3) mg/dL Total Bilirubin 1.1 (0.2-1.3) mg/dL AST 45 H (14-36) U/L ALT 18 (4-34) U/L Alkaline Phosphatase 115 (38-126) U/L Total Protein 6.3 (6.3-8.2) g/dL Albumin 3.0 L (3.5-5.0) g/dL Disposition <Isa Robbins - Last Filed: 09/26/23 13:28> Is patient prescribed a controlled substance at d/c from ED?: No <Shayy Mortensen - Last Filed: 09/26/23 20:31> Clinical Impression: Hypomagnesemia Disposition: HOME SELF-CARE Condition: Fair Instructions (If sedation given, give patient instructions): Hypomagnesemia (ED) Additional Instructions: Follow up with your PCP. Report back to ER with any new or worsening symptoms. Take medication as prescribed. Prescriptions: Magnesium Oxide [Mag-Ox] 400 mg PO BID 3 Days #6 tablet Referrals: Jarvis Bernard MD [Primary Care Provider] - 1-2 days
[2023-09-26 13:29] VITALS: PULSE 72; TEMP 97.9
[2023-09-26 14:18] LABS: ALT 18 U/L (4-34); AST 45 U/L (14-36); African American GFR (CKD) >90 (>60 ml/min/1.73 sqM); Alkaline Phosphatase 115 U/L (38-126); Anion Gap 6 mmol/L; Blood Urea Nitrogen 2 mg/dL (7-17); Calcium 8.6 mg/dL (8.4-10.2); Carbon Dioxide 25 mmol/L (22-30); Chloride 105 mmol/L (98-107); Glucose 89 mg/dL (74-99); Magnesium 1.1 mg/dL (1.6-2.3); Non-African American GFR(CKD) 83 (>60 ml/min/1.73 sqM); Phosphorus 3.5 mg/dL (2.5-4.5); Sodium 136 mmol/L (137-145); Total Bilirubin 1.1 mg/dL (0.2-1.3); Total Protein 6.3 g/dL (6.3-8.2)
[2023-09-26 14:32] LABS: Basophils % (A) 0 %; Eosinophils # (A) 0.1 k/uL (0-0.7); Eosinophils % (A) 3 %; HCT 33.7 % (34.0-46.0); Lymphocytes # (A) 1.1 k/uL (1.0-4.8); Lymphocytes % (A) 23 %; MCH 36.6 pg (25.0-35.0); MCHC 32.5 g/dL (31.0-37.0); MCV 112.5 fL (80.0-100.0); Macrocytosis Marked; Mean Platelet Volume 9.3; Monocytes # (A) 0.3 k/uL (0-1.0); Monocytes % (A) 7 %; Neutrophils # (A) 3.3 k/uL (1.3-7.7); Neutrophils % (A) 66 %; Platelet Count 133 k/uL (150-450); RDW 12.7 % (11.5-15.5)
[2023-09-26] MEDS ORDERED: Magnesium Replacement Protocol 1 EACH MISC MISCELLANE PRN (16:43)
[2023-09-26] MEDS: MAGNESIUM SULFATE-D5W PMX 1 GM in DEXTROSE/WATER 1 100ML.BAG IVPB SCH (16:57)
[2023-09-26] MEDS: MAGNESIUM OXIDE 400 MG TAB PO STA (19:13)
[2023-09-26 19:30] VITALS: BP 111/77; RESP 18
== END 2023-09-26 19:33 | disposition home or self-care (01) ==
LOC: EC 13:20
DX: E83.42 Hypomagnesemia (principal); Z88.2 Allergy status to sulfonamides; Z88.5 Allergy status to narcotic agent
CPT/HCPCS: 36415; 93005; 80053; 83735; 84100; 85025; 99285; 96365; J3475

== ENCOUNTER 2023-09-27 21:12 | Inpatient (IN) | payer MEDICARE, BC ==
--- NOTE | 2023-09-27 21:46 | XR ---
EXAMINATION TYPE: XR Hip RT and AP Pelvis DATE OF EXAM: 09/27/2023 COMPARISON: None HISTORY: Fall, pain TECHNIQUE: AP pelvis with 2 views right hip FINDINGS: Right femoral head articulates with the acetabulum. Joint space is preserved. There is some subtle lucency within the femoral neck cortex. Underlying fracture is suspected. Correl ate with symptoms. This could be confirmed with CT. There is a left femoral prosthesis. There may be an old pubic ramus fracture on the left. Nonspecific bowel gas is present. IMPRESSION: 1. Nondisplaced right femoral neck fracture suspected. Consider CT for additional workup.
[2023-09-27 23:03] LABS: Basophils % (A) 0 %; Eosinophils # (A) 0.1 k/uL (0-0.7); Eosinophils % (A) 2 %; HCT 31.8 % (34.0-46.0); HGB 10.8 gm/dL (11.4-16.0); Lymphocytes # (A) 1.1 k/uL (1.0-4.8); Lymphocytes % (A) 17 %; MCH 37.5 pg (25.0-35.0); MCHC 33.9 g/dL (31.0-37.0); MCV 110.6 fL (80.0-100.0); Macrocytosis Marked; Mean Platelet Volume 9.4; Monocytes # (A) 0.6 k/uL (0-1.0); Monocytes % (A) 9 %; Neutrophils # (A) 4.7 k/uL (1.3-7.7); Neutrophils % (A) 71 %; Platelet Count 101 k/uL (150-450); RBC 2.87 m/uL (3.80-5.40); RDW 12.4 % (11.5-15.5); WBC 6.7 k/uL (3.8-10.6)
[2023-09-27 23:18] LABS: ALT 19 U/L (4-34); AST 44 U/L (14-36); African American GFR (CKD) >90 (>60 ml/min/1.73 sqM); Albumin 2.9 g/dL (3.5-5.0); Alkaline Phosphatase 123 U/L (38-126); Anion Gap 4 mmol/L; Blood Urea Nitrogen 2 mg/dL (7-17); Calcium 8.5 mg/dL (8.4-10.2); Carbon Dioxide 25 mmol/L (22-30); Chloride 102 mmol/L (98-107); Glucose 92 mg/dL (74-99); Non-African American GFR(CKD) 90 (>60 ml/min/1.73 sqM); Potassium 3.7 mmol/L (3.5-5.1); Sodium 131 mmol/L (137-145)
[2023-09-27] MEDS: MORPHINE SULFATE 4 MG/ML SYRINGE IVP STA (23:36)
[2023-09-27] MEDS ORDERED: NALOXONE 0.4 MG/ML 1 ML VIAL IV PRN (23:53)
--- NOTE | 2023-09-27 23:53 | ED ---
General Adult HPI - General Chief complaint: Extremity Injury, Lower Stated complaint: Fall, Right Hip/Leg Pain Time Seen by Provider: 09/27/23 21:20 Source: patient Mode of arrival: EMS Limitations: no limitations - History of Present Illness Initial comments: 68-year-old female presents emergency department after she had a fall and patient states she fell yesterday morning. She has neuropathy in her legs and states that she lost her balance. She fell onto her right hip. Denies hitting her head or losing consciousness. No neck or back pain. She was able to get up and has been ambulating however states as the day goes on, the pain has gotten worse. At this time she is unable to bear weight. She denies any chest pain or shortness of breath. No abdominal pain. She has not taken anything for the pain at this time. No other alleviating, precipitating modifying factors - Related Data Home Medications Medication Instructions Recorded Confirmed Gabapentin [Neurontin] 300 mg PO 5XD 01/13/22 09/26/23 Metoprolol Tartrate [Lopressor] 25 mg PO BID 01/13/22 09/26/23 Omeprazole [PriLOSEC] 20 mg PO BID 01/13/22 09/26/23 Escitalopram [Lexapro] 20 mg PO DAILY 08/23/23 09/26/23 Folic Acid 1 mg PO DAILY 09/26/23 09/26/23 Thiamine [Vitamin B-1] 300 mg PO DAILY 09/26/23 09/26/23 Previous Rx's Medication Instructions Recorded Magnesium Oxide [Mag-Ox] 400 mg PO BID #20 tablet 08/23/23 Magnesium Oxide [Mag-Ox] 400 mg PO BID 3 Days #6 tablet 09/26/23 Allergies Allergy/AdvReac Type Severity Reaction Status Date / Time Sulfa (Sulfonamide Allergy Nausea Verified 09/26/23 17:12 Antibiotics) codeine AdvReac Nausea & Verified 09/26/23 17:12 Vomiting Review of Systems ROS Statement: Those systems with pertinent positive or pertinent negative responses have been documented in the HPI. ROS Other: All systems not noted in ROS Statement are negative. Past Medical History Past Medical History: Hypertension, Liver Disease, Syncope Additional Past Medical History / Comment(s): Neuropathy upper and lower extremities, more so in the lower. History of Any Multi-Drug Resistant Organisms: None Reported Past Surgical History: Breast Surgery, Section, Cholecystectomy Additional Past Surgical History / Comment(s): 3 ceserean Sections, BREAST REDUCTION. Past Anesthesia/Blood Transfusion Reactions: No Reported Reaction Past Psychological History: Anxiety Smoking Status: Never smoker Past Alcohol Use History: Abuse, Daily Past Drug Use History: None Reported - Past Family History Mother Family Medical History: Cancer Additional Family Medical History / Comment(s): COLON AND UTERINE CANCER, and thyroid Cancer Sister(s) Family Medical History: Cancer Additional Family Medical History / Comment(s): BREAST CANCER General Exam Limitations: no limitations General appearance: alert, in no apparent distress Head exam: Present: atraumatic, normocephalic, normal inspection Eye exam: Present: normal appearance, PERRL, EOMI. Absent: scleral icterus, conjunctival injection, periorbital swelling ENT exam: Present: normal exam, mucous membranes moist Neck exam: Present: normal inspection. Absent: tenderness, meningismus, lymphadenopathy Respiratory exam: Present: normal lung sounds bilaterally. Absent: respiratory distress, wheezes, rales, rhonchi, stridor Cardiovascular Exam: Present: regular rate, normal rhythm, normal heart sounds. Absent: systolic murmur, diastolic murmur, rubs, gallop, clicks GI/Abdominal exam: Present: soft, normal bowel sounds. Absent: distended, tenderness, guarding, rebound, rigid Extremities exam: Present: tenderness (right hip pain to palpation. Decreased range of motion due to pain), normal capillary refill. Absent: pedal edema, joint swelling, calf tenderness Back exam: Present: normal inspection Neurological exam: Present: alert, oriented X3, CN II-XII intact Psychiatric exam: Present: normal affect, normal mood Skin exam: Present: warm, dry, intact, normal color. Absent: rash Course Vital Signs 09/27/23 09/27/23 09/28/23 21:17 23:34 06:23 Temperature 98.6 F Pulse Rate 84 87 86 Respiratory 20 18 18 Rate Blood Pressure 127/86 112/80 108/88 O2 Sat by Pulse 98 99 98 Oximetry Medical Decision Making - Medical Decision Making Was pt. sent in by a medical professional or institution (, PA, CORPORATE SERVICES MANAGER, urgent care, hospital, or [facility]...) When possible be specific @ -No Did you speak to anyone other than the patient for history (EMS, parent, family, police, friend...)? What history was obtained from this source @ -No Did you review nursing and triage notes (agree or disagree)? Why? @ -I reviewed and agree with nursing and triage notes Were old charts reviewed (outside hosp., previous admission, EMS record, old EKG, old radiological studies, urgent care reports/EKG's, [facility] records)? Report findings @ -No old charts were reviewed Differential Diagnosis (chest pain, altered mental status, abdominal pain women, abdominal pain men, vaginal bleeding, weakness, fever, dyspnea, syncope, headache, dizziness, GI bleed, back pain, seizure, CVA, palpatations, mental health, musculoskeletal)? @ -Differential Musculoskeletal Muscular strain, contusion, ligament sprain, fracture, arthritis, septic arthritis, bursitis, cellulitis, muscle spasm, nerve compression, DVT, arterial occlusion, herpes zoster, electrolyte abnormality, tumor.... This is not meant to be in all inclusive list EKG interpreted by me (3pts min.). @ -Yes and demonstrates sinus rhythm with a rate of 81. LA interval 163. QRS 86. QTc of 434. No acute ST segment elevations or depressions X-rays interpreted by me (1pt min.). @ -Yes and demonstrates a right femoral neck fracture CT interpreted by me (1pt min.). @ -Yes and demonstrates a right hip fracture U/S interpreted by me (1pt. min.). @ -None done What testing was considered but not performed or refused? (CT, X-rays, U/S, labs)? Why? @ -None What meds were considered but not given or refused? Why? @ -None Did you discuss the management of the patient with other professionals (professionals i.e. , PA, CORPORATE SERVICES MANAGER, lab, RT, psych nurse, rn social services, criminal defense lawyer, teacher, accounts officer, transplant case manager)? Give summary @ -I discussed the case with Herminio BOGGS who accepts admission on behalf of Dr. Foster Was smoking cessation discussed for >3mins.? @ -No Was critical care preformed (if so, how long)? @ -No Were there social determinants of health that impacted care today? How? (Homelessness, low income, unemployed, alcoholism, drug addiction, transportation, low edu. Level, literacy, decrease access to med. care, halfway, rehab)? @ -No Was there de-escalation of care discussed even if they declined (Discuss DNR or withdrawal of care, Hospice)? DNR status @ -No What co-morbidities impacted this encounter? (DM, HTN, Smoking, COPD, CAD, Cancer, CVA, ARF, Chemo, Hep., AIDS, mental health diagnosis, sleep apnea, morbid obesity)? @ -Neuropathy Was patient admitted / discharged? Hospital course, mention meds given and route, prescriptions, significant lab abnormalities, going to OR and other pertinent info. @ -Upon arrival patient seen and evaluated in room 14. Thorough history and physical exam was performed. X-ray was performed which demonstrates suspicion for hip fracture. This is followed by CT which does confirm subcapital fracture. Called and spoke with Carmelo from orthopedics. Patient will be admitted and be n.p.o. Medicine will be consulted. Undiagnosed new problem with uncertain prognosis? @ -No Drug Therapy requiring intensive monitoring for toxicity (Heparin, Nitro, Insulin, Cardizem)? @ -No Were any procedures done? @ -No Diagnosis/symptom? @ -Acute fall, right hip pain, right hip fracture Acute, or Chronic, or Acute on Chronic? @ -Acute Uncomplicated (without systemic symptoms) or Complicated (systemic symptoms)? @ -complicated Side effects of treatment? @ -No Exacerbation, Progression, or Severe Exacerbation? @ -No Poses a threat to life or bodily function? How? (Chest pain, [place], [place], pneumonia, PE, COPD, DKA, ARF, appy, cholecystitis, CVA, Diverticulitis, Homicidal, Suicidal, threat to staff... and all critical care pts) @ -No - Lab Data Result diagrams: 09/28/23 05:51 09/28/23 05:48 Lab Results 09/27/23 09/27/23 Range/Units 22:52 22:52 WBC 6.7 (3.8-10.6) k/uL RBC 2.87 L (3.80-5.40) m/uL Hgb 10.8 L (11.4-16.0) gm/dL Hct 31.8 L (34.0-46.0) % MCV 110.6 H (80.0-100.0) fL MCH 37.5 H (25.0-35.0) pg MCHC 33.9 (31.0-37.0) g/dL RDW 12.4 (11.5-15.5) % Plt Count 101 L (150-450) k/uL MPV 9.4 Neutrophils % 71 % Lymphocytes % 17 % Monocytes % 9 % Eosinophils % 2 % Basophils % 0 % Neutrophils # 4.7 (1.3-7.7) k/uL Lymphocytes # 1.1 (1.0-4.8) k/uL Monocytes # 0.6 (0-1.0) k/uL Eosinophils # 0.1 (0-0.7) k/uL Basophils # 0.0 (0-0.2) k/uL Macrocytosis Marked A Sodium 131 L (137-145) mmol/L Potassium 3.7 (3.5-5.1) mmol/L Chloride 102 (98-107) mmol/L Carbon Dioxide 25 (22-30) mmol/L Anion Gap 4 mmol/L BUN 2 L (7-17) mg/dL Creatinine 0.67 (0.52-1.04) mg/dL Est GFR (CKD-EPI)AfAm >90 (>60 ml/min/1.73 sqM) Est GFR (CKD-EPI)NonAf 90 (>60 ml/min/1.73 sqM) Glucose 92 (74-99) mg/dL Calcium 8.5 (8.4-10.2) mg/dL Total Bilirubin 1.0 (0.2-1.3) mg/dL AST 44 H (14-36) U/L ALT 19 (4-34) U/L Alkaline Phosphatase 123 (38-126) U/L Total Protein 6.0 L (6.3-8.2) g/dL Albumin 2.9 L (3.5-5.0) g/dL Disposition Clinical Impression: Fall, Fracture of right hip Disposition: ADMITTED IP TO THIS HOSP Condition: Stable Is patient prescribed a controlled substance at d/c from ED?: No Time of Disposition: 23:53 Decision to Admit Reason: Admit from EC Decision Date: 09/27/23 Decision Time: 23:53
[2023-09-27] MEDS ORDERED: LORazepam 2 MG/ML INJ IV PRN ×3 (23:55)
[2023-09-28] MEDS: SODIUM CHLORIDE 0.9% 1,000 ML IV SCH (00:44)
--- NOTE | 2023-09-28 01:51 | CT ---
EXAM: CT Right Lower Extremity Without Intravenous Contrast, Hip CLINICAL HISTORY: ITS.REASON CT Reason: fracture, fall TECHNIQUE: Axial computed tomography images of the right hip without intravenous contrast. This CT exam was performed using one or more of the following dose reduction techniques: automated exposure control, adjustment of the mA and/or kV according to patient size, and/or use of iterative reconstruction technique. COMPARISON: No relevant prior studies available. FINDINGS: Bones/joints: Nondisplaced RIGHT subcapital femoral neck fracture. Orthopedic surgical evaluation recommended. No dislocation. Osseous demineralization. Soft tissues: No soft tissue hematoma. IMPRESSION: Nondisplaced RIGHT subcapital femoral neck fracture. Orthopedic surgical evaluation recommended.
[2023-09-28 06:19] LABS: African American GFR (CKD) >90 (>60 ml/min/1.73 sqM); Anion Gap 3 mmol/L; Blood Urea Nitrogen 2 mg/dL (7-17); Calcium 8.3 mg/dL (8.4-10.2); Carbon Dioxide 28 mmol/L (22-30); Chloride 104 mmol/L (98-107); Glucose 87 mg/dL (74-99); Non-African American GFR(CKD) 89 (>60 ml/min/1.73 sqM); Potassium 4.1 mmol/L (3.5-5.1); Sodium 135 mmol/L (137-145)
[2023-09-28 06:45] LABS: Basophils % (A) 0 %; Eosinophils # (A) 0.1 k/uL (0-0.7); Eosinophils % (A) 2 %; HCT 29.2 % (34.0-46.0); HGB 9.7 gm/dL (11.4-16.0); Lymphocytes # (A) 1.2 k/uL (1.0-4.8); Lymphocytes % (A) 30 %; MCH 37.2 pg (25.0-35.0); MCHC 33.1 g/dL (31.0-37.0); MCV 112.2 fL (80.0-100.0); Macrocytosis Marked; Mean Platelet Volume 9.6; Monocytes # (A) 0.3 k/uL (0-1.0); Monocytes % (A) 7 %; Neutrophils # (A) 2.5 k/uL (1.3-7.7); Neutrophils % (A) 60 %; Platelet Count 86 k/uL (150-450); RDW 12.4 % (11.5-15.5); WBC 4.2 k/uL (3.8-10.6)
[2023-09-28] MEDS: MORPHINE SULFATE 4 MG/ML SYRINGE IV PRN (06:52)
[2023-09-28] MEDS ORDERED: MORPHINE SULFATE 2 MG/ML SYRINGE IV PRN (08:32)
--- NOTE | 2023-09-28 08:37 | P.CONS ---
History of Present Illness - Reason for Consult Consult date: 09/28/23 - History of Present Illness 68-year-old female with PMH of chronic alcohol abuse, neuropathy, hypertension, depression presents to the ED after a mechanical fall. Patient reports losing her footing on her patio 2 days ago which resulted in a fall. She has been unable to ambulate due to right hip pain which she reports to be a 2/10 currently. She reports an unsteady gait for many years which she attributes to severe peripheral neuropathy in her bilateral lower extremities. She denies any lightheadedness or syncope. No head trauma. She follows Dr. Garcia her neurologist who is treating her neuropathy. She reports a 10 year history of drinking a fifth of hard liquor daily, quit 3 years ago, but continues to drink a glass of wine 3-4 times a week. Previously admitted for a CVA workup. Workup entailed the following. CT head showed age-related atrophic and chronic small vessel ischemic changes without acute process. Carotid US negative. MRI brain negative for acute CVA. Echo EF 55-60% with mild /MR/TR, trace AR/IA. Vital signs in the ED BP 112/80, HR 87, RR 18, 99% on RA. Hip CT showed nondisplaced right subcapital femoral neck fracture. EKG shows sinus arrhythmia. CBC and CMP performed showing RBC 2.87, Hg 10.8, Hct 31.8, MCV 110.6, Plt 101, Na 131, BUN 2, AST 44, total protein 6, alb 2.9. She is admitted to Orthopedic surgery with Medicine on consult for medical clearance. Pertinent positives and negatives as discussed in HPI, a complete review of systems was performed and all other systems are negative. General: non toxic, no distress, appears at stated age Derm: warm, dry Head: atraumatic, normocephalic, symmetric Eyes: EOMI, no lid lag, anicteric sclera Mouth: no lip lesion, mucus membranes moist Cardiovascular: S1S2 reg, no murmur Lungs: CTA bilateral, no rhonchi, no rales , no accessory muscle use Ext: no gross muscle atrophy, no edema, no contractures Neuro: Restricted ROM of the R hip due to pain Psych: Alert, oriented, appropriate affect Right subcapital femoral neck fracture managed by Orthopedic surgery. NSQIP scoring puts her at a high risk for serious complication, any complication and need for SNF. She has no relative contraindications for surgery. She is medical ly optimized. Mechanical fall due to unsteady gait and periperal neuropathy: PT and OT consulted post surgery. Fall precautions in place. Hypertension now hypotensive: BP as low as 82/54 during the encounter. Hold Metoprolol. 500 cc NS bolus ordered. Continue NS at 75 cc/hr. Macrocytic anemia: Likely due to previous EtOH abuse. Thrombocytopenia: Likely due to previous EtOH abuse. Hyponatremia: IV hydration as above. Hypomagnesemia: Mag 1.3. Mag sulfate 4g IV x 1. Transaminitis: LIkely due to previous EtOH abuse. SCDs for DVT prophylaxis. Surrogate decision maker: . FULL CODE. I have reviewed the following surgery consultant notes: ED note. I have reviewed the results of the following tests: As above. I have ordered the following tests: As above. I have discussed the care of this patient with the following independent historian: I have independently interpreted the following test below: EKG as above. I have discussed the management of this patient with the following physician: Past Medical History Past Medical History: Hypertension, Liver Disease, Syncope Additional Past Medical History / Comment(s): Neuropathy upper and lower extremities, more so in the lower. History of Any Multi-Drug Resistant Organisms: None Reported Past Surgical History: Breast Surgery, Section, Cholecystectomy Additional Past Surgical History / Comment(s): 3 ceserean Sections, BREAST REDUCTION. Past Anesthesia/Blood Transfusion Reactions: No Reported Reaction Past Psychological History: Anxiety Smoking Status: Never smoker Past Alcohol Use History: Abuse, Daily Past Drug Use History: None Reported - Past Family History Mother Family Medical History: Cancer Additional Family Medical History / Comment(s): COLON AND UTERINE CANCER, and thyroid Cancer Sister(s) Family Medical History: Cancer Additional Family Medical History / Comment(s): BREAST CANCER Medications and Allergies Home Medications Medication Instructions Recorded Confirmed Type Gabapentin [Neurontin] 300 mg PO 5XD 01/13/22 09/28/23 History Metoprolol Tartrate [Lopressor] 25 mg PO BID 01/13/22 09/28/23 History Omeprazole [PriLOSEC] 20 mg PO BID 01/13/22 09/28/23 History Escitalopram [Lexapro] 20 mg PO DAILY 08/23/23 09/28/23 History Magnesium Oxide [Mag-Ox] 400 mg PO BID #20 tablet 08/23/23 09/28/23 Rx Folic Acid 1 mg PO DAILY 09/26/23 09/28/23 History Thiamine [Vitamin B-1] 300 mg PO DAILY 09/26/23 09/28/23 History Allergies Allergy/AdvReac Type Severity Reaction Status Date / Time codeine AdvReac Nausea & Verified 09/28/23 07:52 Vomiting Sulfa (Sulfonamide AdvReac Nausea Verified 09/28/23 07:52 Antibiotics) Physical Exam Vitals: Vital Signs Temp Pulse Pulse Resp BP BP Pulse Ox 09/28/23 08:06 98.0 F 79 18 96/64 94 L 09/28/23 07:54 70 17 96/54 98 09/28/23 06:23 86 18 108/88 98 09/27/23 23:34 87 18 112/80 99 09/27/23 21:17 98.6 F 84 20 127/86 98 Intake and Output 09/27/23 09/28/23 09/28/23 22:59 06:59 14:59 Other: Weight 48.081 kg Results CBC & Chem 7: 09/28/23 05:51 09/28/23 05:48 Labs: Abnormal Lab Results - Last 24 Hours (Table) 09/27/23 09/27/23 09/27/23 Range/Units 22:52 22:52 23:46 RBC 2.87 L (3.80-5.40) m/uL Hgb 10.8 L (11.4-16.0) gm/dL Hct 31.8 L (34.0-46.0) % MCV 110.6 H (80.0-100.0) fL MCH 37.5 H (25.0-35.0) pg Plt Count 101 L (150-450) k/uL Macrocytosis Marked A Sodium 131 L (137-145) mmol/L BUN 2 L (7-17) mg/dL Calcium (8.4-10.2) mg/dL Magnesium 1.3 L (1.6-2.3) mg/dL AST 44 H (14-36) U/L Total Protein 6.0 L (6.3-8.2) g/dL Albumin 2.9 L (3.5-5.0) g/dL 09/28/23 09/28/23 Range/Units 05:48 05:51 RBC 2.60 L (3.80-5.40) m/uL Hgb 9.7 L (11.4-16.0) gm/dL Hct 29.2 L (34.0-46.0) % MCV 112.2 H (80.0-100.0) fL MCH 37.2 H (25.0-35.0) pg Plt Count 86 L (150-450) k/uL Macrocytosis Marked A Sodium 135 L (137-145) mmol/L BUN 2 L (7-17) mg/dL Calcium 8.3 L (8.4-10.2) mg/dL Magnesium (1.6-2.3) mg/dL AST (14-36) U/L Total Protein (6.3-8.2) g/dL Albumin (3.5-5.0) g/dL
--- NOTE | 2023-09-28 09:15 | P.HPOR ---
History of Present Illness H&P Date: 09/28/23 Chief Complaint: Right femoral neck fracture Patient is a 68-year-old female who presented to [facility] on 09/27/2023 with regards to worsening right hip pain. Patient apparently had fallen at her home earlier in the week but has continued to ambulate. Over the last few days the pain has gotten a lot worse and she has had a lot more difficult time with ambulation. On arrival to the ER, she underwent multiple imaging test and lab tests, hip CT scan did confirm a nondisplaced right femoral neck fracture. I was contacted by the emergency room staff regarding this patient, she was admitted under our orthopedic care with plan for likely surgical intervention. Internal medicine was placed on consult for medical management. Patient was evaluated today on the medical/surgical floor. She is resting comfortably in bed. She denies any other orthopedic issues, this to include bilateral upper extremity pain, left lower extremity pain, new onset cervical, thoracic and lumbar pain. Ling notes most discomfort in the right anterior thigh with movement. She does have a history of a direct anterior left total hip arthroplasty that was [place] in [address] Trivedi for osteoarthritis. Patient did very well after that surgery. Patient is a daily alcohol user, she does have neuropathy from this to the bilateral hands and feet. She states that her balance is not the greatest due to her neuropathy. She denies any headaches, lightheadedness, chest pain or shortness of breath at this time. Patient does have a walker and cane at home that she very rarely uses. She does live at home with her . Review of Systems Constitutional: Reports as per HPI Past Medical History Past Medical History: Hypertension, Liver Disease, Syncope Additional Past Medical History / Comment(s): Neuropathy upper and lower extremities, more so in the lower. History of Any Multi-Drug Resistant Organisms: None Reported Past Surgical History: Breast Surgery, Section, Cholecystectomy Additional Past Surgical History / Comment(s): 3 ceserean Sections, BREAST REDUCTION. Past Anesthesia/Blood Transfusion Reactions: No Reported Reaction Past Psychological History: Anxiety Smoking Status: Never smoker Past Alcohol Use History: Abuse, Daily Past Drug Use History: None Reported - Past Family History Mother Family Medical History: Cancer Additional Family Medical History / Comment(s): COLON AND UTERINE CANCER, and thyroid Cancer Sister(s) Family Medical History: Cancer Additional Family Medical History / Comment(s): BREAST CANCER Medications and Allergies Home Medications Medication Instructions Recorded Confirmed Type Gabapentin [Neurontin] 300 mg PO 5XD 01/13/22 09/28/23 History Metoprolol Tartrate [Lopressor] 25 mg PO BID 01/13/22 09/28/23 History Omeprazole [PriLOSEC] 20 mg PO BID 01/13/22 09/28/23 History Escitalopram [Lexapro] 20 mg PO DAILY 08/23/23 09/28/23 History Magnesium Oxide [Mag-Ox] 400 mg PO BID #20 tablet 08/23/23 09/28/23 Rx Folic Acid 1 mg PO DAILY 09/26/23 09/28/23 History Thiamine [Vitamin B-1] 300 mg PO DAILY 09/26/23 09/28/23 History Allergies Allergy/AdvReac Type Severity Reaction Status Date / Time codeine AdvReac Nausea & Verified 09/28/23 07:52 Vomiting Sulfa (Sulfonamide AdvReac Nausea Verified 09/28/23 07:52 Antibiotics) Physical Examination Right lower extremity: No obvious open lesions, sores or areas of erythema to the extremity. No significant shortening or internal/external rotation of the extremity compared to the contralateral side Range of motion was difficult with hip flexion due to pain, knee extension knee flexion are intact. Plantarflexion, dorsiflexion, EHL, FHL are intact. No significant strength deficits appreciated. Logroll maneuver does reproduce groin pain, she is unable to straight leg raise at this time She does demonstrate some tenderness with palpation to the proximal femur. She is nontender surrounding the knee, lower leg, foot or ankle Calf is soft, no tenderness with palpation Sensory exam to light touch is intact throughout the extremity Dorsalis pedis pulses 2+ Results - Labs Labs: Abnormal Lab Results - Last 24 Hours (Table) 09/27/23 09/27/23 09/27/23 Range/Units 22:52 22:52 23:46 RBC 2.87 L (3.80-5.40) m/uL Hgb 10.8 L (11.4-16.0) gm/dL Hct 31.8 L (34.0-46.0) % MCV 110.6 H (80.0-100.0) fL MCH 37.5 H (25.0-35.0) pg Plt Count 101 L (150-450) k/uL Macrocytosis Marked A Sodium 131 L (137-145) mmol/L BUN 2 L (7-17) mg/dL Calcium (8.4-10.2) mg/dL Magnesium 1.3 L (1.6-2.3) mg/dL AST 44 H (14-36) U/L Total Protein 6.0 L (6.3-8.2) g/dL Albumin 2.9 L (3.5-5.0) g/dL 09/28/23 09/28/23 Range/Units 05:48 05:51 RBC 2.60 L (3.80-5.40) m/uL Hgb 9.7 L (11.4-16.0) gm/dL Hct 29.2 L (34.0-46.0) % MCV 112.2 H (80.0-100.0) fL MCH 37.2 H (25.0-35.0) pg Plt Count 86 L (150-450) k/uL Macrocytosis Marked A Sodium 135 L (137-145) mmol/L BUN 2 L (7-17) mg/dL Calcium 8.3 L (8.4-10.2) mg/dL Magnesium (1.6-2.3) mg/dL AST (14-36) U/L Total Protein (6.3-8.2) g/dL Albumin (3.5-5.0) g/dL H & H 09/27/23 09/28/23 Range/Units 22:52 05:51 Hgb 10.8 L 9.7 L (11.4-16.0) gm/dL Hct 31.8 L 29.2 L (34.0-46.0) % Result Diagrams: 09/28/23 05:51 09/28/23 05:48 - Diagnostic results Hip x-ray: report reviewed, image reviewed (Reports and images reviewed of the right hip x-ray. Images do demonstrate osteoarthritic changes, this to include subchondral sclerosis and loss of joint space. There is cortical changes noted in the femoral neck) Hip CT: report reviewed, image reviewed (Report and images reviewed of the hip CT, they confirmed the impacted right femoral neck fracture and osteoarthritic findings) Assessment and Plan Assessment: Right hip pain Right hip osteoarthritis Impacted right femoral neck fracture Alcohol abuse Other medical comorbidities Plan: I was able to discuss the case, this to include both physical exam findings and imaging studies my attending Dr. Johnson. We would like to proceed with surgical intervention, more specifically a direct anterior right total hip arthroplasty. Surgery scheduled for 09/29/2023. Risk and benefits of the procedure were discussed with the patient, this to include but not exclude infection, blood loss, neurovascular injury, development of blood clots, pain and stiffness, and adequate healing of soft tissue/bone, need for further surgery. Patient is in good understanding would like to proceed. Consent will be obtained prior to procedure N.p.o. after midnight Nonweightbearing right lower extremity Pain control, oral Tylenol, low-dose narcotics CIWA protocol in place DVT prophylaxis, compression stockings/SACHA hose at this time. Will utilize oral versus subcu medication after surgery PT/OT evaluation after surgery Medical recommendations appreciated Further recommendations to follow Time with Patient: Less than 30
[2023-09-28] MEDS: MAGNESIUM SULFATE-D5W PMX 1 GM in DEXTROSE/WATER 1 100ML.BAG IVPB SCH (09:24)
[2023-09-28] MEDS: SODIUM CHLORIDE 0.9% 500 ML 500 ML IV ONE (09:25)
[2023-09-28] MEDS: MAGNESIUM OXIDE 400 MG TAB PO SCH (10:03)
[2023-09-28] MEDS: ESCITALOPRAM 20 MG TAB PO SCH (10:03)
[2023-09-28] MEDS: PANTOPRAZOLE 40 MG TABLET PO SCH (10:03)
[2023-09-28] MEDS: THIAMINE 100 MG TAB PO SCH (10:03)
[2023-09-28] MEDS: FOLIC ACID 1 MG TAB PO SCH (10:03)
[2023-09-28] MEDS: GABAPENTIN 300 MG CAP PO SCH (10:49)
[2023-09-28] MEDS: MELATONIN 5 MG TABLET PO PRN (23:14)
[2023-09-29 06:44] LABS: HCT 26.7 % (34.0-46.0); HGB 8.9 gm/dL (11.4-16.0); MCHC 33.5 g/dL (31.0-37.0); MCV 113.6 fL (80.0-100.0); Mean Platelet Volume 9.8; RBC 2.35 m/uL (3.80-5.40); RDW 12.3 % (11.5-15.5); WBC 3.2 k/uL (3.8-10.6)
[2023-09-29 07:04] LABS: Macrocytosis Marked; Platelet Count 69 k/uL (150-450)
[2023-09-29 08:14] LABS: INR 1.1 (<1.2); Prothrombin Time 12.1 sec (10.0-12.5)
[2023-09-29] MEDS: SODIUM CHLORIDE 0.9% 50 ML with ceFAZolin 1,000 MG IV ONE (08:26)
[2023-09-29] MEDS: IV FLUID CONTINUATION 1,000 ML IV ONE (08:26)
[2023-09-29] MEDS: ceFAZolin 3,000 MG in SODIUM CHLORIDE 0.9% IRRIGATIO 3,000 ML IRRIGATION ONE (08:53)
[2023-09-29] MEDS: SODIUM CHLORIDE 0.9% 500 ML 500 ML IV ONE (09:58)
[2023-09-29] MEDS ORDERED: HYDROcodone/APAP 5-325MG 1 EACH TAB PO PRN (10:03)
[2023-09-29] MEDS ORDERED: HYDROcodone/APAP 7.5-325MG 1 EACH TAB PO PRN (10:03)
[2023-09-29] MEDS ORDERED: MAGNESIUM HYDROXIDE 2,400 MG/30 ML CUP PO PRN (10:03)
--- NOTE | 2023-09-29 10:17 | XR ---
Fluoroscopy INDICATION: Hip replacement FINDINGS: Fluoroscopy time: 25.1 seconds. Total dose area product (DAP) in uGy*m?, mGy*cm? (or similar): 0.8495 Images obtained: 4. Images were obtained over right hip replacement IMPRESSION: 1. Documentation of fluoroscopy.
--- NOTE | 2023-09-29 10:18 | P.OP ---
Date of Procedure: 09/29/23 Preoperative Diagnosis: Subacute impacted right subcapital femoral neck fracture Postoperative Diagnosis: Same Procedure(s) Performed: Right total hip arthroplastyanterior approachpress-fit Implants: Depuy Corail size 11-125 degreecollared press-fit femoral stem, 36+1.5 cobalt chrome femoral head, 54 mm [place] acetabular shell with neutral polyethylene liner. Anesthesia: GETA Surgeon: David Johnson Ui Designer #1: Louis Whatley Estimated Blood Loss (ml): 300 Pathology: none sent Condition: stable Disposition: PACU Indications for Procedure: The patient is a 68-year-old female who presents after falling a couple of days ago injuring the right hip. She was noted to have an impacted subacute right subcapital femoral neck fracture. A discussion of the risks and benefits of operative intervention was made with the patient. Operative options to include closed reduction and percutaneous pinning versus hemiarthroplasty versus total hip arthroplasty were discussed. She opted to proceed with total hip arthroplasty. Specific risks of surgery to include infection, neurovascular injury, development of blood clots, leg length discrepancy, fracture, possible component loosening/failure and possible need for subsequent procedures was discussed. Informed consent was obtained. Operative Findings: As below Description of Procedure: The patient was brought to the operating room, and after induction of spinal anesthesia was placed supine on the Eliane table. Positioning was checked with fluoroscopy. The right hip was then prepped and draped in a normal fashion. A 12 cm incision was then made starting 2 fingerbreadths distal and 3 finger breaths posterior to the ASIS in line with the proximal femur. The skin was incised sharply. Subcutaneous tissues were divided sharply. Electrocautery was used for hemostasis. The fascia was split in line with skin incision. The interval between the sartorius and tensor fascia sharon was then bluntly developed. The posterior fascia was opened with electrocautery. The lateral circumflex vessels were identified and cauterized prior to sectioning. A retractor was placed along the superior femoral neck as well as the anterior acetabular rim. A wide capsulotomy was performed. A large hemarthrosis was encountered. The neck cut was at a 45 angle to the shaft approximately 1 1/2 cm above the level of the lesser trochanter, below the subcapital fracture. The head was extracted. Attention was then paid towards preparing the acetabulum. Anterior and posterior retractors were placed. The remaining capsular labral tissue sharply debrided clearly defining the acetabular margins. I began reaming with a 49 mm reamer taking care to initially medialize then reaming at 45 of abduction and 20 of anteversion. Sequential reaming is performed up to 53 mm. A trial 54 mm acetabular shell was inserted in the same orientation and was fully seated. There was good rim fit and stability. Positioning was checked with fluoroscopy. The final 54 mm acetabular shell was inserted again at 45 of abduction and 20 of anteversion. This was fully seated. There was good rim fit and stability. Again fluoroscopy was used to check the adequacy of placement. A neutral polyethylene liner was gently impacted. Care was taken to avoid any soft tissue interposition. Pulsatile lavage was utilized. Attention was then paid towards preparing the proximal femur. The central region was cleared of soft tissue. A canal finder was used to find the femoral canal. Sequential broaching was performed up to size 11 taking care to lateralize proximally. A calcar mill was used to fashion the medial calcar. There was good rotational stability. A 125 degree neck along with a 36 mm +1.5 head was placed. The hip was gently reduced. Fluoroscopy was used to check the adequacy of positioning along with leg lengths. I felt both were good. The hip was gently dislocated. The trial components were removed. The final size 11 collared 125 degree standard press-fit femoral stem was inserted parallel to the posterior cortex. This was fully seated and there was good rotational stability. A 36 mm +1.5 head was placed. This was gently impacted. The hip was then gently reduced. Final fluoroscopic view showed adequate placement implant along with taoist of leg length. Stability was checked with 80 of external rotation and 60 of extension of the right hip. The wound was irrigated with sterile lavage. The fascia was closed with running 0 Vicryl suture. There was minimal drainage therefore a deep drain was not placed. The second dose of IV TXA was given. The subcutaneous tissues were reapproximated interrupted 2-0 Vicryl sutures. The skin was reapproximated with 3-0 subcuticular strata fix suture. Skin tape and adhesive was applied. A sterile dressing was applied. The patient was then awoken from sedation and transferred to recovery room in good condition. Blood loss was estimated at 300 mL. No complications were incurred. Sponge and needle counts were correct at the end of the case. Toi BOGSG assisted during the major components is case to include exposure, bone resection, implantation, and closure.
--- NOTE | 2023-09-29 10:18 | FL ---
Fluoroscopy INDICATION: Pain FINDINGS: Fluoroscopy time: 25 seconds. Total dose area product (DAP) in uGy*m?, mGy*cm? (or similar): 0.8495 Images obtained: 4. IMPRESSION: 1. Documentation of fluoroscopy.
[2023-09-29] MEDS ORDERED: HYDROmorphone 0.5 MG/0.5 ML SYRINGE IM PRN (10:36)
[2023-09-29] MEDS: HYDROmorphone 0.5 MG/0.5 ML SYRINGE IVP STA (10:43)
--- NOTE | 2023-09-29 10:50 | XR ---
EXAMINATION TYPE: XR Hip Limited RT DATE OF EXAM: 09/29/2023 COMPARISON: 01/15/2022 HISTORY: Right hip replacement TECHNIQUE: AP right hip FINDINGS: Femoral component and acetabular component in place. No acute fractures post placement are evident. Mild soft tissue postsurgical changes are noted. IMPRESSION: 1. No acute fractures post right hip replacement
[2023-09-29 11:05] VITALS: BMI 18.1
--- NOTE | 2023-09-29 14:45 | P.PN ---
Subjective Progress Note Date: 09/29/23 68-year-old female with PMH of chronic alcohol abuse, neuropathy, hypertension, depression presents to the ED after a mechanical fall. Patient reports losing her footing on her patio 2 days ago which resulted in a fall. She has been unable to ambulate due to right hip pain which she reports to be a 2/10 currently. She reports an unsteady gait for many years which she attributes to severe peripheral neuropathy in her bilateral lower extremities. She denies any lightheadedness or syncope. No head trauma. She follows Dr. Garcia her neurologist who is treating her neuropathy. She reports a 10 year history of drinking a fifth of hard liquor daily, quit 3 years ago, but continues to drink a glass of wine 3-4 times a week. Previously admitted for a CVA workup. Workup entailed the following. CT head showed age-related atrophic and chronic small vessel ischemic changes without acute process. Carotid US negative. MRI brain negative for acute CVA. Echo EF 55-60% with mild /MR/TR, trace AR/WV. Vital signs in the ED BP 112/80, HR 87, RR 18, 99% on RA. Hip CT showed nondisplaced right subcapital femoral neck fracture. EKG shows sinus arrhythmia. CBC and CMP performed showing RBC 2.87, Hg 10.8, Hct 31.8, MCV 110.6, Plt 101, Na 131, BUN 2, AST 44, total protein 6, alb 2.9. She is admitted to Orthopedic surgery with Medicine on consult for medical clearance. 09/28 Patient was seen and examined. Well controlled pain. Underwent right total hip arthroplasty. 1 unit PRBC transfused. CBC WBC 3.2, RBC 2.35, Hg 8.9, Hct 26.7, MCV 113.6, Plt 69. Coag panel wnl. General: non toxic, no distress, appears at stated age Derm: warm, dry Head: atraumatic, normocephalic, symmetric Eyes: EOMI, no lid lag, anicteric sclera Mouth: no lip lesion, mucus membranes moist Cardiovascular: S1S2 reg, no murmur Lungs: CTA bilateral, no rhonchi, no rales , no accessory muscle use Ext: no gross muscle atrophy, no edema, no contractures Neuro: Restricted ROM of the R hip due to pain Psych: Alert, oriented, appropriate affect Right subcapital femoral neck fracture managed by Orthopedic surgery. NSQIP scoring puts her at a high risk for serious complication, any complication and need for SNF. She has no relative contraindications for surgery. She is medically optimized. Acute blood loss anemia: Due to above. Transfuse if Hg < 7. Repeat CBC tomorrow morning. Mechanical fall due to unsteady gait and periperal neuropathy: PT and OT consulted post surgery. Fall precautions in place. Hypertension now hypotensive: BP as low as 82/54 on admission. Hold Metoprolol. Status post 500 cc NS bolus. Continue NS at 75 cc/hr. Thrombocytopenia: Likely due to previous EtOH abuse. Hyponatremia: IV hydration as above. Hypomagnesemia: Status post Mag sulfate 4g IV x 1. Transaminitis: Likely due to previous EtOH abuse. SCDs for DVT prophylaxis. Surrogate decision maker: . FULL CODE. I have reviewed the following performance consultant notes: Ortho note. I have reviewed the results of the following tests: CBC, Coag panel I have ordered the following tests: CBC. I have discussed the care of this patient with the following independent historian: I have independently interpreted the following test below: I have discussed the management of this patient with the following physician: Objective - Vital Signs Vital signs: Vital Signs Temp 99.2 F 09/29/23 07:44 Pulse 99 09/29/23 07:44 Resp 16 09/29/23 07:44 BP 106/65 09/29/23 07:44 Pulse Ox 94 L 09/29/23 07:44 FiO2 Intake & Output 09/28/23 09/29/23 09/29/23 18:59 06:59 18:59 Intake Total 51 Output Total 1650 500 Balance -1650 -500 51 Weight 48.081 kg Intake: IV 51 Blood Product 0 Rc As-1 Unit 0 [id number] Output: Urine 1650 500 Other: Voiding Method External Catheter External Catheter - Labs CBC & Chem 7: 09/29/23 06:28 09/28/23 05:48 Labs: Abnormal Lab Results - Last 24 Hours (Table) 09/28/23 09/29/23 Range/Units 00:01 06:28 WBC 3.2 L (3.8-10.6) k/uL RBC 2.35 L (3.80-5.40) m/uL Hgb 8.9 L (11.4-16.0) gm/dL Hct 26.7 L (34.0-46.0) % MCV 113.6 H (80.0-100.0) fL MCH 38.0 H (25.0-35.0) pg Plt Count 69 L (150-450) k/uL Macrocytosis Marked A Crossmatch See Detail
[2023-09-29] MEDS: SENNOSIDES-DOCUSATE SODIUM 1 EACH TAB PO SCH (20:04)
[2023-09-29] MEDS: ACETAMINOPHEN TAB 325 MG TAB PO PRN (20:05)
[2023-09-29] MEDS: traMADol 50 MG TAB PO PRN (22:43)
[2023-09-29] MEDS: BENZOCAINE/MENTHOL LOZENG 1 EACH LOZENGE MUCOUS MEM PRN (22:48)
[2023-09-30] MEDS: SODIUM CHLORIDE 0.9% 1,000 ML IV ONE (02:04)
[2023-09-30] MEDS: SODIUM CHLORIDE 0.9% 500 ML 500 ML IV ONE (03:57)
[2023-09-30 04:16] LABS: Basophils % (A) 0 %; Eosinophils # (A) 0.1 k/uL (0-0.7); Eosinophils % (A) 1 %; HCT 26.1 % (34.0-46.0); HGB 8.8 gm/dL (11.4-16.0); Lymphocytes % (A) 18 %; MCH 36.1 pg (25.0-35.0); MCHC 33.8 g/dL (31.0-37.0); Macrocytosis Marked; Mean Platelet Volume 9.9; Monocytes # (A) 0.5 k/uL (0-1.0); Monocytes % (A) 10 %; Neutrophils # (A) 3.7 k/uL (1.3-7.7); Neutrophils % (A) 69 %; RBC 2.44 m/uL (3.80-5.40); WBC 5.3 k/uL (3.8-10.6)
[2023-09-30 04:23] LABS: MCV 106.8 fL (80.0-100.0); Platelet Count 60 k/uL (150-450)
[2023-09-30] MEDS: MIDODRINE 5 MG TAB PO ONE (04:53)
[2023-09-30] MEDS: ENOXAPARIN 40 MG/0.4 ML SYRINGE SQ SCH (08:56)
[2023-09-30] MEDS: FAMOTIDINE 20 MG TAB PO SCH (08:57)
[2023-09-30] MEDS: polyethylene glycoL 3350 17 GM POWD.PACK PO SCH (08:57)
--- NOTE | 2023-09-30 09:54 | XR ---
EXAMINATION TYPE: XR chest 1V portable DATE OF EXAM: 09/30/2023 HISTORY: Shortness of breath. COMPARISON: 08/23/2023 TECHNIQUE: Single view of the chest is submitted. FINDINGS: Demonstrated are scattered senescent parenchymal change. There is no evidence for focal infiltrate. The heart is stable. Hilar and mediastinal structures are within normal limits. Degenerative changes are seen of the dorsal spine. IMPRESSION: 1. Chronic changes without evidence for acute pulmonary disease.
[2023-09-30 11:14] LABS: African American GFR (CKD) >90 (>60 ml/min/1.73 sqM); Anion Gap 5 mmol/L; Blood Urea Nitrogen 6 mg/dL (7-17); Calcium 7.4 mg/dL (8.4-10.2); Carbon Dioxide 20 mmol/L (22-30); Chloride 108 mmol/L (98-107); Glucose 110 mg/dL (74-99); Magnesium 1.7 mg/dL (1.6-2.3); Non-African American GFR(CKD) >90 (>60 ml/min/1.73 sqM); Potassium 3.5 mmol/L (3.5-5.1); Sodium 133 mmol/L (137-145)
--- NOTE | 2023-09-30 12:09 | P.PN ---
Subjective Progress Note Date: 09/30/23 Principal diagnosis: Status post direct anterior right total hip arthroplasty for femoral neck fracture Patient evaluated today at bedside, she is resting in her hospital bed. Patient did attempt to get up with therapy today. She did have some nausea and slight discomfort to the right lower extremity. Patient's heart rate has been noted to be elevated today. Patient's CBC from earlier this morning shows hemoglobin at 8.8 since receiving 1 unit of packed RBCs yesterday. She has no chest pain or shortness of breath at this time. Objective - Vital Signs Vital signs: Vital Signs Temp 99.7 F H 09/30/23 07:09 Pulse 110 H 09/30/23 08:00 Resp 16 09/30/23 08:00 BP 93/60 09/30/23 07:09 Pulse Ox 93 L 09/30/23 07:09 FiO2 Intake & Output 09/29/23 09/30/23 09/30/23 18:59 06:59 18:59 Intake Total 1086 Output Total 375 Balance 711 Weight 48.081 kg Intake: IV 776 Blood Product 310 Rc As-1 Unit 310 [id number] Output: Urine 75 Estimated Blood Loss 300 Other: Voiding Method External Catheter Bedpan Bedpan # Voids 3 1 # Bowel Movements 2 - Exam Right lower extremity: Incision is clean, dry, and intact. The exofin fusion tape is in good condition. There is minimal soft tissue swelling and ecchymosis surrounding the medial and lateral aspects of the incision. Calf is soft, no tenderness with palpation. Plantar flexion, dorsiflexion, EHL, FHL are intact. Sensory exam to light touch throughout the extremity is intact, dorsal pedis pulses 2+. - Labs CBC & Chem 7: 09/30/23 03:59 09/30/23 10:08 Labs: Abnormal Lab Results - Last 24 Hours (Table) 09/30/23 09/30/23 Range/Units 03:59 10:08 RBC 2.44 L (3.80-5.40) m/uL Hgb 8.8 L (11.4-16.0) gm/dL Hct 26.1 L (34.0-46.0) % MCV 106.8 H D (80.0-100.0) fL MCH 36.1 H (25.0-35.0) pg RDW 16.0 H (11.5-15.5) % Plt Count 60 L (150-450) k/uL Macrocytosis Marked A Sodium 133 L (137-145) mmol/L Chloride 108 H (98-107) mmol/L Carbon Dioxide 20 L (22-30) mmol/L BUN 6 L (7-17) mg/dL Glucose 110 H (74-99) mg/dL Calcium 7.4 L (8.4-10.2) mg/dL Assessment and Plan Assessment: Postoperative day #1 status post right total hip arthroplasty direct anterior approach History of recent fall resulting in right femoral neck fracture Acute blood loss anemia, expected surgical outcome Other medical comorbidities Plan: Pain control, continue with oral medications as needed DVT prophylaxis, continue subcu medication Monitor surgical dressing, new bandage was placed today. Leave surgical tape in place Ferrous sulfate 325 mg twice a day for anemia Weight-bear as tolerated, recommend use of a walker and aid at bedside at all times Encourage incentive spirometer Up to chair for all meals PT/OT Medical recommendations appreciated Discharge planning: Will discuss with case management 10/01/2023 subacute rehab options for discharge Time with Patient: Less than 30
[2023-09-30 13:31] LABS: Appearance,Urine Clear (Clear); Bilirubin,Urine Negative (Negative); Blood,Urine Negative (Negative); Color,Urine Light Yellow; Glucose,Urine (UA) Negative (Negative); Ketones,Urine Negative (Negative); Leukocyte Esterase,Urine Negative (Negative); Nitrite,Urine Negative (Negative); Protein,Urine Negative (Negative); Specific Gravity,Urine 1.011 (1.001-1.035); Urobilinogen,Urine <2.0 mg/dL (<2.0)
--- NOTE | 2023-09-30 14:05 | P.PN ---
Subjective Progress Note Date: 09/30/23 68-year-old female with PMH of chronic alcohol abuse, neuropathy, hypertension, depression presents to the ED after a mechanical fall. Patient reports losing her footing on her patio 2 days ago which resulted in a fall. She has been unable to ambulate due to right hip pain which she reports to be a 2/10 currently. She reports an unsteady gait for many years which she attributes to severe peripheral neuropathy in her bilateral lower extremities. She denies any lightheadedness or syncope. No head trauma. She follows Dr. Garcia her neurologist who is treating her neuropathy. She reports a 10 year history of drinking a fifth of hard liquor daily, quit 3 years ago, but continues to drink a glass of wine 3-4 times a week. Previously admitted for a CVA workup. Workup entailed the following. CT head showed age-related atrophic and chronic small vessel ischemic changes without acute process. Carotid US negative. MRI brain negative for acute CVA. Echo EF 55-60% with mild /MR/TR, trace AR/MS. Vital signs in the ED BP 112/80, HR 87, RR 18, 99% on RA. Hip CT showed nondisplaced right subcapital femoral neck fracture. EKG shows sinus arrhythmia. CBC and CMP performed showing RBC 2.87, Hg 10.8, Hct 31.8, MCV 110.6, Plt 101, Na 131, BUN 2, AST 44, total protein 6, alb 2.9. She is admitted to Orthopedic surgery with Medicine on consult for medical clearance. 09/28 Patient was seen and examined. Well controlled pain. Underwent right total hip arthroplasty. 1 unit PRBC transfused. CBC WBC 3.2, RBC 2.35, Hg 8.9, Hct 26.7, MCV 113.6, Plt 69. Coag panel wnl. 09/29 Patient was seen and examined. POD 1 right total hip arthroplasty. Developed a fever Tmax 100 F overnight. She reports feeling fine with no complaints. Tachycardic with HR as high at 116. Given 2L NS bolus. CBC RBC 2.44, Hg 8.8, Hct 26.1, MCV 106.8, Plt 60. Lactic acid 1.0. General: non toxic, no distress, appears at stated age Derm: warm, dry Head: atraumatic, normocephalic, symmetric Eyes: EOMI, no lid lag, anicteric sclera Mouth: no lip lesion, mucus membranes moist Cardiovascular: S1S2 tachy, no murmur Lungs: CTA bilateral, no rhonchi, no rales , no accessory muscle use Ext: no gross muscle atrophy, no edema, no contractures Neuro: Restricted ROM of the R hip due to pain Psych: Alert, oriented, appropriate affect Sepsis versus SIRS: Unknown etiology. Given 2L NS bolus overnight. CXR ordered. UA with UCx. BCx ordered. Telemetry monitoring. Right subcapital femoral neck fracture managed by Orthopedic surgery. NSQIP scoring puts her at a high risk for serious complication, any complication and need for SNF. She has no relative contraindications for surgery. She is medically optimized. Acute blood loss anemia: Due to above. Transfuse if Hg < 7. Repeat CBC tomorrow morning. Mechanical fall due to unsteady gait and periperal neuropathy: PT and OT consulted post surgery. Fall precautions in place. Hypertension now hypotensive: BP as low as 82/54 on admission. Hold Metoprolol. Status post 500 cc NS bolus. Continue NS at 75 cc/hr. Thrombocytopenia: Likely due to previous EtOH abuse. Hyponatremia: IV hydration as above. Hypomagnesemia: Status post Mag sulfate 4g IV x 1. Transaminitis: Likely due to previous EtOH abuse. SCDs for DVT prophylaxis. Surrogate decision maker: . FULL CODE. I have reviewed the following small business consultant notes: Ortho note. I have reviewed the results of the following tests: CBC, Lactic acid I have ordered the following tests: BMP, Mag, CXR, UA, BCx. I have discussed the care of this patient with the following independent historian: I have independently interpreted the following test below: I have discussed the management of this patient with the following physician: Objective - Vital Signs Vital signs: Vital Signs Temp 99.7 F H 09/30/23 07:09 Pulse 110 H 09/30/23 07:09 Resp 16 09/30/23 07:09 BP 93/60 09/30/23 07:09 Pulse Ox 93 L 09/30/23 07:09 FiO2 Intake & Output 09/29/23 09/30/23 09/30/23 18:59 06:59 18:59 Intake Total 1086 Output Total 375 Balance 711 Weight 48.081 kg Intake: IV 776 Blood Product 310 Rc As-1 Unit 310 [id number] Output: Urine 75 Estimated Blood Loss 300 Other: Voiding Method External Catheter Bedpan # Voids 3 1 # Bowel Movements 2 - Labs CBC & Chem 7: 09/30/23 03:59 09/30/23 10:08 Labs: Abnormal Lab Results - Last 24 Hours (Table) 09/28/23 09/30/23 Range/Units 00:01 03:59 RBC 2.44 L (3.80-5.40) m/uL Hgb 8.8 L (11.4-16.0) gm/dL Hct 26.1 L (34.0-46.0) % MCV 106.8 H D (80.0-100.0) fL MCH 36.1 H (25.0-35.0) pg RDW 16.0 H (11.5-15.5) % Plt Count 60 L (150-450) k/uL Macrocytosis Marked A Crossmatch See Detail
[2023-09-30] MEDS: ONDANSETRON 4 MG/2 ML VIAL IVP PRN (14:46)
[2023-09-30] MEDS: FERROUS SULFATE 325 MG TAB PO SCH (17:06)
[2023-10-01 10:08] LABS: Basophils # (A) 0.01 X 10*3/uL (0.00-0.10); Basophils % (A) 0.1 %; Eosinophils # (A) 0.05 X 10*3/uL (0.04-0.35); Eosinophils % (A) 0.7 %; HCT 24.2 % (37.2-46.3); HGB 8.5 g/dL (12.0-15.0); Immature Platelet Fraction 6.5 % (1.1-6.1); Lymphocytes # (A) 1.25 X 10*3/uL (0.90-5.00); Lymphocytes % (A) 18.6 %; MCH 36.6 pg (27.0-32.0); MCHC 35.1 g/dL (32.0-37.0); MCV 104.3 FL (80.0-97.0); Mean Platelet Volume 11.7 FL (9.5-12.2); Monocytes # (A) 0.81 X 10*3/uL (0.20-1.00); Monocytes % (A) 12.1 %; NRBC Per 100 WBC 0 X 10*3/uL (0.00-0.01); Neutrophils # (A) 4.57 X 10*3/uL (1.80-7.70); Neutrophils % (A) 68.2 %; Platelet Count 65 X 10*3/uL (140-440); RBC 2.32 X 10*6/uL (4.10-5.20); RDW 16.2 % (11.5-14.5); WBC 6.71 X 10*3/uL (4.50-10.00)
--- NOTE | 2023-10-01 14:11 | P.PN ---
Subjective Progress Note Date: 10/01/23 Principal diagnosis: Status post direct anterior right total hip arthroplasty for femoral neck fracture Patient evaluated today at bedside, she is resting in her hospital bed. Martin renee's heart rate continues to be elevated, she denies any shortness of breath or chest pain at this time. Hemoglobin remained stable at this time. We are working with case management for subacute rehab placement. She states that the pain in the hip is well-controlled. She has no chest pain or shortness of breath at this time. Objective - Vital Signs Vital signs: Vital Signs Temp 98.0 F 10/01/23 07:05 Pulse 114 H 10/01/23 07:05 Resp 16 10/01/23 07:05 BP 136/80 10/01/23 07:05 Pulse Ox 94 L 10/01/23 07:05 FiO2 Intake & Output 09/30/23 10/01/23 10/01/23 18:59 06:59 18:59 Intake Total 900 240 Output Total 1000 250 Balance -100 -250 240 Intake: Intake, IV Titration 900 Amount Sodium Chloride 0.9% 1, 900 000 ml @ 75 mls/hr IV . [id number] [facility] Rx#:[id number] Oral 240 Output: Urine 1000 Straight 500 Stool 250 Other: Voiding Method Bedpan Incontinent # Voids 1 3 # Bowel Movements 1 - Exam Right lower extremity: Incision is clean, dry, and intact. The exofin fusion tape is in good condition. There is minimal soft tissue swelling and ecchymosis surrounding the medial and lateral aspects of the incision. Calf is soft, no tenderness with palpation. Plantar flexion, dorsiflexion, EHL, FHL are intact. Sensory exam to light touch throughout the extremity is intact, dorsal pedis pulses 2+. - Labs CBC & Chem 7: 10/01/23 03:42 09/30/23 10:08 Labs: Abnormal Lab Results - Last 24 Hours (Table) 09/28/23 10/01/23 Range/Units 00:01 03:42 RBC 2.32 L (4.10-5.20) X 10*6/uL Hgb 8.5 L (12.0-15.0) g/dL Hct 24.2 L (37.2-46.3) % MCV 104.3 H (80.0-97.0) FL MCH 36.6 H (27.0-32.0) pg RDW 16.2 H (11.5-14.5) % Plt Count 65 L (140-440) X 10*3/uL Immature Plt Fraction 6.5 H (1.1-6.1) % Crossmatch See Detail Assessment and Plan Assessment: Postoperative day #2 status post right total hip arthroplasty direct anterior approach History of recent fall resulting in right femoral neck fracture Acute blood loss anemia, expected surgical outcome Tachycardia Other medical comorbidities Plan: Pain control, continue with oral medications as needed DVT prophylaxis, continue subcu medication Monitor surgical dressing, leave surgical tape in place Ferrous sulfate 325 mg twice a day for anemia Weight-bear as tolerated, recommend use of a walker and aid at bedside at all times Encourage incentive spirometer Up to chair for all meals PT/OT Medical recommendations appreciated, discussed with nursing to reach out to internal medicine regarding her elevated heart rate for further evaluation and management Discharge planning: Subacute rehab placement pending Time with Patient: Less than 30
--- NOTE | 2023-10-01 14:25 | P.PN ---
Subjective Progress Note Date: 10/01/23 Subjective: Patient seen and examined at bedside. No acute events overnight. Reported 2 bowel movements last night. States she feels a bit nauseous. Her pain levels are at a 1/10 now. Pertinent positives and negatives as discussed above, a complete review of systems was performed and all other systems are negative. Vitals: Signs Reviewed Physical Exam: General: nontoxic, no distress, appears at stated age Derm: warm, dry, intact Head: atraumatic, normocephalic, symmetric Eyes: EOMI, no lid lag, anicteric sclera Mouth: no lip lesion, mucus membranes moist Cardiovascular: S1 S2 reg, no murmur, rubs, or gallops Lungs: CTA bilateral, no rhonchi, no rales, no accessory muscle use Abdominal: soft, non-tender to palpataion, no appreciable organomegaly Extremities: no gross muscle atrophy, no edema, no contractures Neuro: Alert, Oriented, CNII-XII grossly intact, gait normal Psych: well appearing, appropriate affect Data Received Today: Pertinent Labs: Hgb 8.5, platelet 65 Imaging: CXR: Independently interpreted no evidence of acute pulmonary disease Assessment and Plan: 68-year-old female with PMH of chronic alcohol abuse, neuropathy, hypertension, depression presents to the ED after a mechanical fall. Sepsis versus SIRS: Unknown etiology. Given 2L NS bolus overnight. UCx, BCx results pending. Telemetry monitoring CXR: No evidence of acute pulmonary disease Fever last night UA: Negative Incentive spirometer ordered Will monitor vitals Right subcapital femoral neck fracture Managed by Orthopedic surgery. NSQIP scoring puts her at a high risk for serious complication, any complication and need for SNF Postop day 2 Acute blood loss anemia Due to above. Transfuse if Hg < 7. Repeat CBC tomorrow morning. Mechanical fall due to unsteady gait and peripheral neuropathy: PT and OT consulted post surgery. Fall precautions in place. Hypertension now hypotensive: BP as low as 82/54 on admission. Hold Metoprolol. Status post 500 cc NS bolus. Continue NS at 75 cc/hr. Thrombocytopenia Likely due to previous EtOH abuse. Hyponatremia IV hydration as above. Hypomagnesemia Status post Mag sulfate 4g IV x 1. Transaminitis Likely due to previous EtOH abuse. F: NS at 75 cc/hr E: Replete as needed N: Regular A: Fall precautions DVT ppx: SCDs Code status: Full Anticipated discharge place: [facility] authorization pending Anticipated discharge time: 1 to 2 days I have seen and evaluated the patient today. Discussed with the resident and agree with the residents subjective and objective as documented in the resident 's note. The assessment and plan was discussed and outlined as below. Patient with no complaints. Retaining urine requiring straight cath. Tmax 99.7F over the past 24H. CXR unremarkable. UA negative. Discussed with case management, accepted at [facility] pending insurance auth. Sepsis versus SIRS: Unknown etiology. Workup including CXR, UA negative. Possibly related to atelectasis, IS ordered. BCx ordered. Telemetry monitoring. Urinary retention: Bladder scan PRN. Straight cath PRN. Flomax 0.4 mg PO QD. Right subcapital femoral neck fracture managed by Orthopedic surgery. NSQIP scoring puts her at a high risk for serious complication, any complication and need for SNF. She has no relative contraindications for surgery. She is medically optimized. Acute blood loss anemia: Due to above. Transfuse if Hg < 7. Repeat CBC tomorrow morning. Mechanical fall due to unsteady gait and periperal neuropathy: PT and OT consulted post surgery. Fall precautions in place. Hypertension now hypotensive: BP as low as 82/54 on admission. Continue NS at 75 cc/hr. Now more normotensive. Restart Metoprolol 25 mg PO BID due to tachycardia. Thrombocytopenia: Likely due to previous EtOH abuse. Hyponatremia: IV hydration as above. Hypomagnesemia: Status post Mag sulfate 4g IV x 1. Transaminitis: Likely due to previous EtOH abuse. Objective - Vital Signs Vital signs: Vital Signs Temp 98.0 F 10/01/23 07:05 Pulse 114 H 10/01/23 07:05 Resp 16 10/01/23 07:05 BP 136/80 10/01/23 07:05 Pulse Ox 94 L 10/01/23 07:05 FiO2 Intake & Output 09/30/23 10/01/23 10/01/23 18:59 06:59 18:59 Intake Total 900 240 Output Total 1000 250 Balance -100 -250 240 Intake: Intake, IV Titration 900 Amount Sodium Chloride 0.9% 1, 900 000 ml @ 75 mls/hr IV . [id number] [facility] Rx#:[id number] Oral 240 Output: Urine 1000 Straight 500 Stool 250 Other: Voiding Method Bedpan Incontinent # Voids 1 3 # Bowel Movements 1 - Labs CBC & Chem 7: 10/01/23 03:42 09/30/23 10:08 Labs: Abnormal Lab Results - Last 24 Hours (Table) 09/28/23 10/01/23 Range/Units 00:01 03:42 RBC 2.32 L (4.10-5.20) X 10*6/uL Hgb 8.5 L (12.0-15.0) g/dL Hct 24.2 L (37.2-46.3) % MCV 104.3 H (80.0-97.0) FL MCH 36.6 H (27.0-32.0) pg RDW 16.2 H (11.5-14.5) % Plt Count 65 L (140-440) X 10*3/uL Immature Plt Fraction 6.5 H (1.1-6.1) % Crossmatch See Detail
[2023-10-01] MEDS: TAMSULOSIN 0.4 MG CAP.ER.24H PO SCH (17:16)
[2023-10-01] MEDS: METOPROLOL TARTRATE 25 MG TAB PO SCH (18:43)
[2023-10-02 04:58] LABS: HCT 23.5 % (34.0-46.0); HGB 7.9 gm/dL (11.4-16.0); MCH 35.5 pg (25.0-35.0); MCHC 33.5 g/dL (31.0-37.0); MCV 105.9 fL (80.0-100.0); Macrocytosis Moderate; Mean Platelet Volume 9.5; RBC 2.22 m/uL (3.80-5.40); RDW 15.4 % (11.5-15.5); WBC 4.4 k/uL (3.8-10.6)
[2023-10-02 05:03] LABS: Platelet Count 73 k/uL (150-450)
--- NOTE | 2023-10-02 12:45 | P.PN ---
Subjective Progress Note Date: 10/02/23 Principal diagnosis: Right hip femoral neck fracture Patient was seen at bedside this morning lying in; position with dressing present over right anterior hip. Patient says she has urinated couple times since going to bed last night and has had more urine output. Patient says she is looking forward to going to [facility] later today. Patient denies any other significant issues at this time. She says the pain over the right hip is controlled with medication. She states she has had a difficult time trying to get up out of bed on her own and has worked very hard to put weight on her right lower extremity since surgery. Patient denies any chest pain, fever, shortness of breath, nausea, vomiting, change in vision, loss of bowel control. Objective - Vital Signs Vital signs: Vital Signs Temp 98.4 F 10/02/23 06:50 Pulse 98 10/02/23 06:50 Resp 16 10/02/23 06:50 BP 107/73 10/02/23 06:50 Pulse Ox 94 L 10/02/23 06:50 FiO2 Intake & Output 10/01/23 10/02/23 10/02/23 18:59 06:59 18:59 Intake Total 240 Output Total 100 Balance 240 -100 Intake: Oral 240 Output: Urine 100 Other: Voiding Method Bedside Commode Bedpan Diaper Incontinent # Voids 1 2 # Bowel Movements 1 2 - Exam Dressing present over right anterior hip. Appears to be clean, dry, intact. Minimal ecchymosis. Negative for any open wounds/erythema. There is fair amount of tenderness to palpation diffusely throughout the right hip near incision. Nontender to palpation throughout rest of exam. Patient is able to wiggle digits and bilateral lower extremities. Patient is able to flex and extend bilateral knees while resting in bed. Patient does have pain with range of motion of right hip. 4-/5 in all major motor groups in right lower extremity. 4/5 in all major motor groups in left lower extremity. 4/5 in all major motor groups in bilateral upper extremities. Radial pulse intact, 2+ bilaterally. Cap refill under 3 seconds in digits of lower extremities. DP pulses palpable bilaterally. Negative Homans bilaterally. - Labs CBC & Chem 7: 10/02/23 04:13 09/30/23 10:08 Labs: Abnormal Lab Results - Last 24 Hours (Table) 10/02/23 10/02/23 Range/Units 04:13 08:40 RBC 2.22 L (3.80-5.40) m/uL Hgb 7.9 L (11.4-16.0) gm/dL Hct 23.5 L (34.0-46.0) % MCV 105.9 H (80.0-100.0) fL MCH 35.5 H (25.0-35.0) pg Plt Count 73 L (150-450) k/uL Crossmatch See Detail Microbiology - Last 24 Hours (Table) 09/30/23 10:08 Blood Culture - Preliminary Blood Assessment and Plan Assessment: 1. Right hip femoral neck fracture -Postop day 3 status post direct anterior right total hip arthroplasty Plan: 1. Right hip femoral neck fracture -direct anterior right total hip arthroplasty performed 09/29/2023. Patient stable at bedside with dressing present over right anterior hip. Dressing is clean, dry, intact. Patient to receive 1 unit of PRBCs today before going to [facility] today.. Weightbearing as tolerated with walker and assistance. Pain medication as needed. Discharge to [facility] later today. 2. Appreciate medical management 3. Pain management -tramadol; gabapentin 4. DVT prophylaxis -Lovenox 5. GI prophylaxis -Pepcid; senna; MiraLAX 6. PT/OT -weight-bear as tolerated with walker and assistance 7. Encourage incentive spirometer use 8. Discharge planning -discharge to rehab today Time with Patient: Less than 30
--- NOTE | 2023-10-02 12:49 | P.DS ---
Providers Date of admission: 09/27/23 23:54 Expected date of discharge: 10/02/23 Attending physician: David Johnson Consults: 09/27/23 23:53 Consult Physician Urgent Consulting Provider: Ha Kaur Consult Reason/Comments: fall, right hip fracture Do you want consulting provider notified?: Yes Primary care physician: Jarvis Bernard Hospital Course: Date of admission: 09/28/2023 Date of discharge: 10/02/2023 Admission diagnosis: Right hip femoral neck fracture Discharge diagnosis: Same Attending physician: Dr. Johnson Surgical procedures: Direct anterior right total hip arthroplasty Brief history: Patient is a 68-year-old female with a history of right hip femoral neck fracture status post fall. At this point patient has failed conservative treatment measures and has opted to proceed with a elective direct anterior right total hip arthroplasty. Hospital course: Details of patient's surgery can be found in operative report. Patient tolerated the procedure well and was subsequently transported to orthopedic floor. Patient's orthopeidc and medical care was provided daily. Patient had daily laboratory tests performed for evaluation of overall blood counts. Patient had daily physical therapy to include strengthening range of motion as well as education with walker ambulation. Patient was treated with Lovenox for their postoperative DVT prophylaxis during their inpatient stay. Patient was noted to have a relatively uneventful postoperative course. Patient reported satisfactory pain control with oral pain medications by postoperative day 3. Patient showed satisfactory progress with physical therapy. Patient moved steadily through the program and had no difficulty meeting the goals by postoperative day 3. Given patient's otherwise satisfactory course and having met physical therapy goals, plan is to discharge patient to rehab on postoperative day 3. Discharge condition/disposition: Patient will be discharged to rehab in stable condition. Discharge medications: Instructions are given on resumption of patient's normal daily medications per primary care recommendation, in addition patient will be prescribed tramadol; Lovenox; iron; senna. Discharge instructions: 1. Wound care and infection precautions, keep incision dry and covered while showering, no lotions, creams, moisturizers. No soaking, tubs, pools, hottubs. Do not scrub over the incision. 2. Weight-bear as tolerated with walker / cane until follow-up. 3. Ice and elevate when necessary. Do not exceed 20 minutes per hour with ice pack. 4. Utilize compression sleeve until seen at first follow up appointment. 5. Nursing care. 6. Physical therapy including home CPM. 7. Pain meds and anticoagulants per prescription. 8. Pain medication has potential to cause constipation. Increase oral fluid and fiber intake. Contact primary care provider if you have not had a bowel movement within 48 hours after discharge 9. No anti-inflammatory medication until discussed at first post operative visit, this including Motrin, Aleve, Mobic, Diclofenac. 10. Follow up in office at 2 weeks postop with Toi Whatley PA-C / Charanjit Cortez PA-C 11. Follow up with your primary care doctor 7-10 days after discharge. 12. Contact [facility] with any questions, . Keep incision clean, dry, intact. While showering, cover fusion tape with Saran wrap. Keep fusion tape on until follow-up appointment in office in 2 weeks Assessment: Right hip femoral neck fracture Procedures: Direct anterior right total hip arthroplasty Patient Condition at Discharge: Good Plan - Discharge Summary Discharge Rx Participant: No New Discharge Prescriptions: New Ferrous Sulfate [Iron (65 MG Elemental)] 325 mg PO BID-W/MEALS tab traMADol HCL 50 mg PO Q8H #18 tab Enoxaparin [Lovenox] 40 mg SQ DAILY #25 each Sennosides/Docusate Sodium [Senna Plus 8.6-50 mg Softgel] 1 each PO DAILY #20 capsule Continue Magnesium Oxide [Mag-Ox] 400 mg PO BID #20 tablet Thiamine [Vitamin B-1] 300 mg PO DAILY Omeprazole [PriLOSEC] 20 mg PO BID Gabapentin [Neurontin] 300 mg PO 5XD Escitalopram [Lexapro] 20 mg PO DAILY Folic Acid 1 mg PO DAILY No Action Metoprolol Tartrate [Lopressor] 25 mg PO BID Discharge Medication List Gabapentin [Neurontin] 300 mg PO 5XD 01/13/22 [History] Metoprolol Tartrate [Lopressor] 25 mg PO BID 01/13/22 [History] Omeprazole [PriLOSEC] 20 mg PO BID 01/13/22 [History] Escitalopram [Lexapro] 20 mg PO DAILY 08/23/23 [History] Magnesium Oxide [Mag-Ox] 400 mg PO BID #20 tablet 08/23/23 [Rx] Folic Acid 1 mg PO DAILY 09/26/23 [History] Thiamine [Vitamin B-1] 300 mg PO DAILY 09/26/23 [History] Ferrous Sulfate [Iron (65 MG Elemental)] 325 mg PO BID-W/MEALS tab 10/01/23 [Rx] Enoxaparin [Lovenox] 40 mg SQ DAILY #25 each 10/02/23 [Rx] Sennosides/Docusate Sodium [Senna Plus 8.6-50 mg Softgel] 1 each PO DAILY #20 capsule 10/02/23 [Rx] traMADol HCL 50 mg PO Q8H #18 tab 10/02/23 [Rx] Follow up Appointment(s)/Referral(s): Charanjit Cortez PAC [PHYSICIAN TRAVELING AUDITOR] - 2 Weeks Jarvis Bernard MD [Primary Care Provider] - 1-2 days Ambulatory/Diagnostic Orders: Complete Blood Count w/diff [LAB.AMB] Location: None Selected Complete Blood Count w/diff [LAB.AMB] Location: None Selected Comprehensive Metabolic Panel [LAB.AMB] Location: None Selected Comprehensive Metabolic Panel [LAB.AMB] Location: None Selected Patient Instructions/Handouts: Anterior Hip Replacement (DC), Anterior Hip Replacement (GEN) Activity/Diet/Wound Care/Special Instructions: Discharge instructions: 1. Wound care and infection precautions, keep incision dry and covered while showering, no lotions, creams, moisturizers. No soaking, tubs, pools, hottubs. Do not scrub over the incision. 2. Weight-bear as tolerated with walker / cane until follow-up. 3. Ice and elevate when necessary. Do not exceed 20 minutes per hour with ice pack. 4. Utilize compression sleeve until seen at first follow up appointment. 5. Nursing care. 6. Physical therapy including home CPM. 7. Pain meds and anticoagulants per prescription. 8. Pain medication has potential to cause constipation. Increase oral fluid and fiber intake. Contact primary care provider if you have not had a bowel movement within 48 hours after discharge 9. No anti-inflammatory medication until discussed at first post operative visit, this including Motrin, Aleve, Mobic, Diclofenac. 10. Follow up in office at 2 weeks postop with Toi Whatley PA-C / Charanjit Cortez PA-C 11. Follow up with your primary care doctor 7-10 days after discharge. 12. Contact [facility] with any questions, . Keep incision clean, dry, intact. While showering, cover fusion tape with Saran wrap. Keep fusion tape on until follow-up appointment in office in 2 weeks Discharge Disposition: TRANSFER TO SNF/ECF
[2023-10-02 13:20] VITALS: BP 111/77; PULSE 96; RESP 16; TEMP 98.3
--- NOTE | 2023-10-02 16:15 | P.PN ---
Subjective Progress Note Date: 10/02/23 Subjective: Patient seen and examined at bedside. No acute events overnight. Reported bowel movement. Her pain levels are at a 1/10 now. Pertinent positives and negatives as discussed above, a complete review of systems was performed and all other systems are negative. Vitals: Signs Reviewed Physical Exam: General: nontoxic, no distress, appears at stated age Derm: warm, dry, intact Head: atraumatic, normocephalic, symmetric Eyes: EOMI, no lid lag, anicteric sclera Mouth: no lip lesion, mucus membranes moist Cardiovascular: S1 S2 reg, no murmur, rubs, or gallops Lungs: CTA bilateral, no rhonchi, no rales, no accessory muscle use Abdominal: soft, non-tender to palpataion, no appreciable organomegaly Extremities: no gross muscle atrophy, no edema, no contractures Neuro: Alert, Oriented, CNII-XII grossly intact, gait normal Psych: well appearing, appropriate affect Data Received Today: Pertinent Labs: Hemoglobin 7.9, platelets 73 Imaging: No new imaging Assessment and Plan: 68-year-old female with PMH of chronic alcohol abuse, neuropathy, hypertension, depression presents to the ED after a mechanical fall s/p hip replacement. Right subcapital femoral neck fracture status post right total hip arthroplasty Acute blood loss anemia, anticipated outcome of surgery Pain and bowel regimen managed by Orthopedic surgery. PT recommends subacute rehab -Hemoglobin slightly down trended, status post 1 unit of PRBC today, received total of 2 units during this admission -No active bleeding -Lovenox for DVT prophylaxis Mechanical fall due to unsteady gait and peripheral neuropathy: PT and OT-subacute rehab Fall precautions in place. History of hypertension Hypotension, resolved with IV fluids Continue metoprolol 25 twice daily at the time of discharge Thrombocytopenia Likely due to previous EtOH abuse. -Currently stable Alcohol dependence -Continue thiamine 300 mg daily, folic acid 1 mg daily Hyponatremia, likely hypovolemic versus euvolemic Resolved with IV hydration, increase solute intake Hypomagnesemia, resolved Transaminitis Likely due to previous EtOH abuse. Depression -Continue Lexapro 20 daily Patient is medically optimized for discharge. Thank you for allowing us to participate in the care of this pleasant patient. Do not hesitate to contact us with questions. Someone can be reached from the [facility] [place][Note 2] hospitalist group all hours of the day at [phone] or via perfect serve. I have seen and evaluated the patient today. Discussed with the resident and agree with the residents finding and plan as documented in the resident's note. Changes highlighted in blue font. Objective - Vital Signs Vital signs: Vital Signs Temp 98.3 F 10/02/23 13:20 Pulse 96 10/02/23 13:20 Resp 16 10/02/23 13:20 BP 111/77 10/02/23 13:20 Pulse Ox 97 10/02/23 13:00 FiO2 Intake & Output 10/01/23 10/02/23 10/02/23 18:59 06:59 18:59 Intake Total 240 310 Output Total 100 Balance 240 210 Weight 48.081 kg Intake: Oral 240 Blood Product 310 Rc As-1 Unit 310 [id number] Output: Urine 100 Other: Voiding Method Bedside Commode Bedpan Diaper Incontinent # Voids 1 2 # Bowel Movements 1 2 - Labs CBC & Chem 7: 10/02/23 04:13 09/30/23 10:08 Labs: Abnormal Lab Results - Last 24 Hours (Table) 10/02/23 10/02/23 Range/Units 04:13 08:40 RBC 2.22 L (3.80-5.40) m/uL Hgb 7.9 L (11.4-16.0) gm/dL Hct 23.5 L (34.0-46.0) % MCV 105.9 H (80.0-100.0) fL MCH 35.5 H (25.0-35.0) pg Plt Count 73 L (150-450) k/uL Crossmatch See Detail Microbiology - Last 24 Hours (Table) 09/30/23 10:08 Blood Culture - Preliminary Blood
== END 2023-10-02 14:31 | DRG 522 ==
LOC: EC 21:12 → 4SSUR 23:54
PROVIDERS: ADMIT Orthopaedic Surgery; ATTEND Orthopaedic Surgery
PROC: 30233N1 Transfusion of Nonautologous Red Blood Cells into Peripheral Vein, Percutaneous Approach (ICD-10-PCS; 2023-09-29)
PROC: 0SR904A Replacement of Right Hip Joint with Ceramic on Polyethylene Synthetic Substitute, Uncemented, Open Approach (ICD-10-PCS; principal; 2023-09-29 08:00)
DX: S72.011A Unspecified intracapsular fracture of right femur, initial encounter for closed fracture (principal); D62 Acute posthemorrhagic anemia; E87.1 Hypo-osmolality and hyponatremia; I10 Essential (primary) hypertension; M16.11 Unilateral primary osteoarthritis, right hip; W18.30XA Fall on same level, unspecified, initial encounter; F41.9 Anxiety disorder, unspecified; E83.42 Hypomagnesemia; D69.59 Other secondary thrombocytopenia; F10.20 Alcohol dependence, uncomplicated; E86.1 Hypovolemia; G62.9 Polyneuropathy, unspecified; I08.3 Combined rheumatic disorders of mitral, aortic and tricuspid valves; R33.8 Other retention of urine; R00.0 Tachycardia, unspecified; R74.01 Elevation of levels of liver transaminase levels; F32.A Depression, unspecified; Z96.642 Presence of left artificial hip joint; Z79.899 Other long term (current) drug therapy; Z88.5 Allergy status to narcotic agent; Z88.2 Allergy status to sulfonamides; Z90.49 Acquired absence of other specified parts of digestive tract
CPT/HCPCS: 36415; 71045; 73501; 73502; 80048; 80053; 81003; 83605; 83735; 85025; 85027; 85610; 86850; 86900; 86901; 86920; 87040; 93005; 96361; 96374; 96376; 99285

== ENCOUNTER 2023-10-15 16:13 | Emergency (ER) | payer MEDICARE, BC ==
[2023-10-15 16:23] VITALS: RESP 18; TEMP 98
--- NOTE | 2023-10-15 17:00 | XR ---
EXAMINATION TYPE: XR Hip RT and AP Pelvis DATE OF EXAM: 10/15/2023 4:54 PM CLINICAL INDICATION:Female, 68 years old with history of deformity, pain; COMPARISON: 09/27/2023. TECHNIQUE: XR Hip RT and AP Pelvis; hip was examined in the frontal and lateral projections and a AP pelvis. FINDINGS: Post arthroplasty changes bilaterally, hardware is intact, alignment is appropriate. No nirmal dence of fracture. No evidence of any acute osseous pathology or joint dislocation. Surgical clip in the pelvis. Degeneration changes throughout spine. IMPRESSION: Bilateral hip arthroplasties. No evidence of fracture. Consider CT examination of the remains concern for fracture.
--- NOTE | 2023-10-15 17:32 | ED ---
Extremity Problem HPI - General Chief complaint: Extremity Problem,Nontraumatic Stated complaint: Extremity Injury Time Seen by Provider: 10/15/23 16:31 Source: patient, EMS, RN notes reviewed Mode of arrival: EMS Limitations: no limitations - History of Present Illness Initial comments: Is a 68-year-old female presents emergency department via EMS from [facility] for chief complaint of right hip swelling. Patient is at rehabilitation center due to a total right hip replacement that was completed approximately 3 weeks ago with ingredient specialist, Dr. Rockwell, he was urged by the [facility] for the patient report for imaging due to concern for possible right hip prosthesis dislocation. Patient is denying severe pain over the right hip. She is neurovascularly intact. Patient has mobility of the right hip however it is mildly limited. Patient denies any recent falls or trauma to the hip. Denies loss of bladder or bowel continence, saddle anesthesias. She denies fevers, chills, nausea, vomiting. - Related Data Home Medications Medication Instructions Recorded Confirmed Gabapentin [Neurontin] 300 mg PO 5XD 01/13/22 09/28/23 Metoprolol Tartrate [Lopressor] 25 mg PO BID 01/13/22 09/28/23 Omeprazole [PriLOSEC] 20 mg PO BID 01/13/22 09/28/23 Escitalopram [Lexapro] 20 mg PO DAILY 08/23/23 09/28/23 Folic Acid 1 mg PO DAILY 09/26/23 09/28/23 Thiamine [Vitamin B-1] 300 mg PO DAILY 09/26/23 09/28/23 Previous Rx's Medication Instructions Recorded Magnesium Oxide [Mag-Ox] 400 mg PO BID #20 tablet 08/23/23 Ferrous Sulfate [Iron (65 MG 325 mg PO BID-W/MEALS tab 10/01/23 Elemental)] Enoxaparin [Lovenox] 40 mg SQ DAILY #25 each 10/02/23 Sennosides/Docusate Sodium [Senna 1 each PO DAILY #20 capsule 10/02/23 Plus 8.6-50 mg Softgel] traMADol HCL 50 mg PO Q8H #18 tab 10/02/23 Allergies Allergy/AdvReac Type Severity Reaction Status Date / Time codeine AdvReac Nausea & Verified 09/28/23 07:52 Vomiting Sulfa (Sulfonamide AdvReac Nausea Verified 09/28/23 07:52 Antibiotics) Review of Systems ROS Statement: Those systems with pertinent positive or pertinent negative responses have been documented in the HPI. ROS Other: All systems not noted in ROS Statement are negative. Past Medical History Past Medical History: Hypertension, Liver Disease, Syncope Additional Past Medical History / Comment(s): Neuropathy upper and lower extremities, more so in the lower. History of Any Multi-Drug Resistant Organisms: None Reported Past Surgical History: Breast Surgery, Section, Cholecystectomy, Orthopedic Surgery Additional Past Surgical History / Comment(s): 3 ceserean Sections, BREAST REDUCTION. rt hip replacement 09/29/2023 Past Anesthesia/Blood Transfusion Reactions: No Reported Reaction Past Psychological History: Anxiety Smoking Status: Never smoker Past Alcohol Use History: Abuse, Daily Past Drug Use History: None Reported - Past Family History Mother Family Medical History: Cancer Additional Family Medical History / Comment(s): COLON AND UTERINE CANCER, and thyroid Cancer Sister(s) Family Medical History: Cancer Additional Family Medical History / Comment(s): BREAST CANCER General Exam Limitations: no limitations General appearance: alert, in no apparent distress Head exam: Present: atraumatic, normocephalic, normal inspection Eye exam: Present: normal appearance, PERRL, EOMI. Absent: scleral icterus, conjunctival injection, periorbital swelling ENT exam: Present: normal exam, mucous membranes moist Neck exam: Present: normal inspection. Absent: tenderness, meningismus, lymphadenopathy Respiratory exam: Present: normal lung sounds bilaterally. Absent: respiratory distress, wheezes, rales, rhonchi, stridor Cardiovascular Exam: Present: regular rate, normal rhythm, normal heart sounds. Absent: systolic murmur, diastolic murmur, rubs, gallop, clicks GI/Abdominal exam: Present: soft, normal bowel sounds. Absent: distended, tenderness, guarding, rebound, rigid Right Hip exam: Present: swelling, erythema (post surgical erythema, no signs of dehisence or drainage). Absent: normal inspection, full ROM Lower Leg exam: Present: normal inspection Neurovascular tendon exam: Present: no vascular compromise. Absent: extremity cold to touch Gait: not tested/not observed Back exam: Present: normal inspection Neurological exam: Present: alert, oriented X3, CN II-XII intact Psychiatric exam: Present: normal affect, normal mood Skin exam: Present: warm, dry, intact, normal color. Absent: rash Course Vital Signs 10/15/23 10/15/23 16:14 19:24 Temperature 98.0 F Pulse Rate 91 104 H Respiratory 18 18 Rate Blood Pressure 104/74 127/92 O2 Sat by Pulse 94 L 94 L Oximetry Medical Decision Making - Medical Decision Making Was pt. sent in by a medical professional or institution (, FLAKITA, PIPELINE GANG SUPERVISOR, urgent care, hospital, or halfway...) When possible be specific @ -No Did you speak to anyone other than the patient for history (EMS, parent, family, police, friend...)? What history was obtained from this source @ -No Did you review nursing and triage notes (agree or disagree)? Why? @ -I reviewed and agree with nursing and triage notes Were old charts reviewed (outside hosp., previous admission, EMS record, old EKG, old radiological studies, urgent care reports/EKG's, halfway records)? Report findings @ -No old charts were reviewed Differential Diagnosis (chest pain, altered mental status, abdominal pain women, abdominal pain men, vaginal bleeding, weakness, fever, dyspnea, syncope, headache, dizziness, GI bleed, back pain, seizure, CVA, palpatations, mental health, musculoskeletal)? @ -Differential Musculoskeletal Muscular strain, contusion, ligament sprain, fracture, arthritis, septic arthritis, bursitis, cellulitis, muscle spasm, nerve compression, DVT, arterial occlusion, herpes zoster, electrolyte abnormality, tumor.... This is not meant to be in all inclusive list EKG interpreted by me (3pts min.). @ -none X-rays interpreted by me (1pt min.). @ -XR of the right hip and AP pelvis no evidence for fracture, bilateral hip arthroplasties changes bilaterally, hardware is intact and alignment is appropriate CT interpreted by me (1pt min.). @ -None done U/S interpreted by me (1pt. min.). @ -None done What testing was considered but not performed or refused? (CT, X-rays, U/S, labs)? Why? @ -None What meds were considered but not given or refused? Why? @ -None Did you discuss the management of the patient with other professionals (professionals i.e. , FLAKITA, PIPELINE GANG SUPERVISOR, lab, RT, psych nurse, manager social services, corner block cutter, teacher, senior compliance officer, lining caser)? Give summary @ -Old with the on-call nurse petitioner for advanced orthopedics, [facility], and relayed the patient's case with her. It is recommended the patient be discharged back to nursing facility and follow-up outpatient with Dr. Rockwell this week for further evaluation. Was smoking cessation discussed for >3mins.? @ -No Was critical care preformed (if so, how long)? @ -No Were there social determinants of health that impacted care today? How? (Homelessness, low income, unemployed, alcoholism, drug addiction, transportation, low edu. Level, literacy, decrease access to med. care, intermediate, re hab)? @ -No Was there de-escalation of care discussed even if they declined (Discuss DNR or withdrawal of care, Hospice)? DNR status @ -No What co-morbidities impacted this encounter? (DM, HTN, Smoking, COPD, CAD, Cancer, CVA, ARF, Chemo, Hep., AIDS, mental health diagnosis, sleep apnea, morbid obesity)? @ -None Was patient admitted / discharged? Hospital course, mention meds given and route, prescriptions, significant lab abnormalities, going to OR and other pertinent info. @ -Discharge. 68-year-old female with right hip pain. On examination patient is neurovascular intact to the right lower extremity. There is mild erythema to the surgical incision site with no signs of purulence, this area does not appear infectious in nature. There is swelling to the right hip and patient has mild pain with full extension of the hip however there is range of motion intact. X- ray nonconcerning for fracture, dislocation. Hardware is intact in joint space. Discussion with orthopedic team that patient is stable for discharge and recommend that she follows up outpatient with her ingredient specialist that completed the joint replacement. All questions answered at bedside and strict return parameters zeyad with the patient she is verbalized understanding. Discussed with Dr. Langford Undiagnosed new problem with uncertain prognosis? @ -No Drug Therapy requiring intensive monitoring for toxicity (Heparin, Nitro, Insulin, Cardizem)? @ -No Were any procedures done? @ -No Diagnosis/symptom? @ -Right hip pain Acute, or Chronic, or Acute on Chronic? @ -acute Uncomplicated (without systemic symptoms) or Complicated (systemic symptoms)? @ -Uncomplicated Side effects of treatment? @ -No Exacerbation, Progression, or Severe Exacerbation? @ -No Poses a threat to life or bodily function? How? (Chest pain, [place], [place], pneumonia, PE, COPD, DKA, ARF, appy, cholecystitis, CVA, Diverticulitis, Homicidal, Suicidal, threat to staff... and all critical care pts) @ -No Disposition Clinical Impression: Swelling of right hip joint Disposition: HOME SELF-CARE Condition: Good Instructions (If sedation given, give patient instructions): Hip Pain (ED) Additional Instructions: return to the emergency department for any new or worsening symptoms. Recommend that you follow-up outpatient with your ingredient specialist, Dr. katz, this week or early next week for further evaluation. Is patient prescribed a controlled substance at d/c from ED?: No Referrals: Vinay Carter MD [Primary Care Provider] - 1-2 days Time of Disposition: 17:31
[2023-10-15 19:25] VITALS: BP 127/92; PULSE 104
== END 2023-10-15 19:27 | disposition home or self-care (01) ==
LOC: EC 16:13
DX: M25.451 Effusion, right hip (principal); M25.551 Pain in right hip; Z88.2 Allergy status to sulfonamides; Z88.5 Allergy status to narcotic agent; Z96.641 Presence of right artificial hip joint
CPT/HCPCS: 73502; 99283

== ENCOUNTER → 2023-10-31 | Outpatient (CLI) | payer MEDICARE, BC | END | disposition home or self-care (01) | LOC: LABPRL 06:10 | PROVIDERS: ATTEND Family Medicine | DX: M84.459A Pathological fracture, hip, unspecified, initial encounter for fracture (principal); K76.9 Liver disease, unspecified; F10.20 Alcohol dependence, uncomplicated | CPT/HCPCS: 82306; 82607; 82728; 82746; 82747; 83540; 83550 ==

== ENCOUNTER → 2023-11-02 | Outpatient (CLI) | payer MEDICARE, BC | END | disposition home or self-care (01) | LOC: LABPRL 03:15 | PROVIDERS: ATTEND Family Medicine | DX: D64.9 Anemia, unspecified (principal) | CPT/HCPCS: 82272 ==